=== PATIENT | female | born 1980 | race Caucasian/White ===

== ENCOUNTER 2025-04-22 16:45 | Inpatient (IN) | payer MEDICAID, SELFPAY ==
[2025-04-22 16:48] VITALS: BP 99/66; PULSE 73; RESP 18; TEMP 36.7; O2SAT 95; BMI 20.6
--- NOTE | 2025-04-22 17:00 | XR_ITS ---
Examination: AP chest single view TECHNIQUE: AP portable upright chest single view Date and time: April 22, 2025, 1743 hours, comparison February 08, 2021 INDICATIONS: Chest pain and shortness of breath today. FINDINGS: Normal heart size. Lungs are clear. The osseous structures are intact IMPRESSION: No active disease
--- NOTE | 2025-04-22 17:00 | EKG_ITS ---
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1980 Requested By: Aleksandra Gerard Order Number: [id number] Reading MD: Aleksandra Gerard Measurements Intervals Hurley Rate: 67 P: 48 NH: 147 QRS: -26 QRSD: 95 T: -8 QT: 452 QTc: 478 Interpretive Statements SINUS RHYTHM WITH OCCASIONAL SUPRAVENTRICULAR PREMATURE COMPLEXES BORDERLINE LEFT AXIS DEVIATION [QRS AXIS < -20] ST DEVIATION AND MODERATE T-WAVE ABNORMALITY, CONSIDER ANTEROLATERAL ISCHEMIA [-0.1+ mV T-WAVE IN V3-V6] Compared to ECG 06/03/2021 12:23:06 T-wave abnormality now present Possible ischemia now present Sinus bradycardia no longer present Ventricular premature complex(es) no longer present /store/S0/[id number]/ecg/[id number].pdf
--- NOTE | 2025-04-22 17:00 | PD.EDSYNC ---
ED Syncope RME/HPI General Chief Complaint: Syncope / Near Syncope Stated Complaint: SYNCOPE Time Seen by Provider: 04/22/25 16:58 Arrival date/time: 04/22/25 16:45 RME / HPI RME / HPI narrative: 44 year old female with history of polycythemia vera, hemachromatosis, Crohn's, fibromyalgia, and diabetes (on Jardiance, no use of insulin) presents to the ED BIBA from home for evaluation following a syncopal episode today. 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 Accompanied by feeling globally weak, shaky, light headed with standing, chills, nausea, and intermittent abdominal cramping. Additionally reports her blood sugar at home has been >400 and in the last several days is only eating once a day due to increased stress. Per medics, on scene BS 375. Denies fevers, chest pain, cough, shortness of breath, vomiting, diarrhea, constipation, or urinary symptoms. Patient later mentioned she did take a shot of fireball and smoked marijuana just before syncopal episode. Related Data Home Medications ?Medication ?Instructions ?Recorded ?Confirmed losartan 50 mg tablet 50 mg PO QDAY 06/02/21 10/13/22 acetaminophen 500 mg tablet 500 mg PO Q6H PRN Pain 06/03/21 10/13/22 ibuprofen 800 mg tablet 800 mg PO Q6H PRN Pain 06/03/21 10/13/22 Held on 10/13/22. Instructions: Resume on 10/16/22. atenolol 100 mg tablet 50 mg PO BID 08/05/21 10/13/22 loperamide 2 mg capsule 2 mg PO QID 10/12/22 10/13/22 quetiapine 50 mg tablet 50 mg PO HS 10/12/22 10/13/22 sertraline 50 mg tablet 50 mg PO QDAY 10/12/22 10/13/22 Previous Rx's ?Medication ?Instructions ?Recorded hydrocodone 5 mg-acetaminophen 325 1 tab PO TID PRN pain #10 tabs 01/01/23 mg tablet dicyclomine 20 mg tablet 20 mg PO TID PRN abdominal pain 12/14/23 #30 tabs metoclopramide HCl 10 mg tablet 10 mg PO .TID prn PRN nausea and 12/14/23 (Reglan) vomiting #20 tabs pantoprazole 40 mg tablet,delayed 40 mg PO QDAY #20 tabs 12/14/23 release (Protonix) Allergies Allergy/AdvReac Type Severity Reaction Status Date / Time droperidol Allergy Intermediate Hives Verified 04/22/25 17:11 latex Allergy Mild REDNESS,ITCHING Verified 04/22/25 17:11 W/CONDOM USE ONLY CITRUS Allergy Severe SORE IN Uncoded 04/22/25 17:11 MOUTH Review of Systems Review of Systems Systems Reviewed: All systems reviewed, normal except as documented Past Medical History Past Medical History NEUROLOGIC: Positive Neurological Disorders (SYNCOPE EPISODES), Cerebrovascular Accident (2020 X2), Migraine (PO MEDS) and Head Trauma (concusions) CARDIAC: Positive Heart Murmur and Hypertension (PO MEDS) RESPIRATORY: Positive Bronchitis (HX) and Pneumonia (HX) GASTROINTESTINAL: Positive Gastrointestinal Disorders (CONSISTENT DIARRHEA), Gastrointestinal Bleed (2000) and Gastroesophageal Reflux Disease REPRODUCTIVE: Positive Pelvic Inflammatory Disease (OVARIAN CYST) and Previous Pregnancies () MUSCULOSKELETAL: Positive Musculoskeletal Disorders, Degenerative Disk Disease (left hip,), Fibromyalgia, Fractures (BILATERAL HAND, BILATERAL WRIST, LEFT ELBOW, JAW) and Degenerative Joint Disease ENT: Positive Head Trauma (concusions) ENDOCRINE: Positive Diabetes Mellitus Type 2 PSYCHO/SOCIAL: Positive Depression (PO MED), Anxiety (PO MED) and Post Traumatic Stress Disorder (PO MED) OTHER HISTORY: Positive Hospitalization (pnuemonia,internal bleeding,ovarian cyst) and Chicken Pox Family History FAMILY HISTORY: Positive Family Cardiac Disorders (MOTHER AND SISTER-PALPITATIONS, mother HTN) and Family Surgery (MOTHER-HYSTERECTOMY, SISTER-APPY) Surgical History SURGICAL: Positive Hysterectomy and Tubal Ligation; Negative Abdominal Surgery Social History SMOKING STATUS: Current every day smoker SECOND HAND EXPOSURE: Yes SUBSTANCE USE: does not use ED Exam Narrative Physical exam: GENERAL APPEARANCE: alert and oriented x 4, well-developed, well-nourished, no acute distress, smells of cigarette smoke HEENT: Normocephalic, atraumatic; EOMI; mucous membranes pink, moist; oropharynx clear NECK: Supple LUNGS: CTABL; no wheezes, no rales, no rhonchi HEART: Regular rate, regular rhythm; normal S1, S2; no murmurs ABDOMEN: non distended; normal BS; soft, no tenderness, no guarding, no rebound; no masses, no organomegaly, no hernia BACK: no CVA tenderness EXTREMITIES: atraumatic; no edema NEUROLOGIC: awake; alert and oriented x4; cranial nerves II-XII grossly intact; no focal sensory or motor deficits PSYCHIATRIC: appropriate mood and affect SKIN: warm, dry, normal color; no rashes Course Course Course Narrative: 1800: Patient signed out to Dr. Kramer pending labs, cxr, and final disposition. Quality Measures none Orders Category Date Time Status Admit to Inpatient Status Routine Admission 04/22/25 23:30 Active Patient Condition Routine Admission 04/22/25 23:29 Ordered Bedside COVID-19 Antigen Test NOW Care 04/22/25 18:39 Active Bedside Influenza A&B Antigen Test NOW Care 04/22/25 18:39 Completed COVID-19 Screening Questionnaire NOW Care 04/22/25 22:51 Active Oncology Registrar NOW Care 04/22/25 17:00 Active Decision to Admit X1 Care 04/22/25 22:51 Completed EKG (ED ONLY) *Do not use* NOW Care 04/22/25 17:00 Completed Miscellaneous Nursing Order NOW Care 04/22/25 23:29 Active Notify provider NEEDED Care 04/22/25 23:29 Active Saline [Insert IV] NOW Care 04/22/25 18:39 Active Straight [In and Out Catheter] X1 Care 04/22/25 18:39 Active Referral Physical Therapy Routine Cons 04/22/25 23:29 Active Diet Cardiac Diet 04/23/25 Breakfast Active CA echo doppler complete Routine Exams 04/22/25 23:[address] head/brain wo con Stat Exams 04/22/25 18:[address] lumbar spine wo con Stat Exams 04/22/25 19:49 Completed EKG (ED Only) Stat Exams 04/22/25 17:00 Draft XR chest 1V portable Stat Exams 04/22/25 17:00 Completed Alcohol, Blood Medical Stat Lab 04/22/25 18:10 Completed B-Type Natriuretic Peptide Stat Lab 04/22/25 18:10 Completed Beta Hydroxybutyrate Stat Lab 04/22/25 18:10 Completed CBC AM DRAW Lab 04/23/25 05:10 Received CBC AM DRAW Lab 04/24/25 05:00 Ordered CBC AM DRAW Lab 04/25/25 05:00 Ordered CBC Stat Lab 04/22/25 18:10 Completed Comprehensive Metabolic Panel AM DRAW Lab 04/23/25 05:10 Received Comprehensive Metabolic Panel AM DRAW Lab 04/24/25 05:00 Ordered Comprehensive Metabolic Panel AM DRAW Lab 04/25/25 05:00 Ordered Comprehensive Metabolic Panel Stat Lab 04/22/25 18:10 Completed D-Dimer Stat Lab 04/22/25 18:10 Completed Drug Screen,Urine Stat Lab 04/22/25 19:05 Completed HCG Qualitative,Urine Stat Lab 04/22/25 19:05 Completed Lipase Stat Lab 04/22/25 18:10 Completed Lipid Panel AM DRAW Lab 04/23/25 05:10 Received Magnesium AM DRAW Lab 04/23/25 05:10 Received Magnesium AM DRAW Lab 04/24/25 05:00 Ordered Magnesium AM DRAW Lab 04/25/25 05:00 Ordered Magnesium Stat Lab 04/22/25 18:10 Completed Partial Thromboplastin Time AM DRAW Lab 04/23/25 05:10 Received Partial Thromboplastin Time Stat Lab 04/22/25 18:10 Completed Phosphorous AM DRAW Lab 04/23/25 05:10 Received Phosphorous AM DRAW Lab 04/24/25 05:00 Ordered Phosphorous AM DRAW Lab 04/25/25 05:00 Ordered Prothrombin Time with INR AM DRAW Lab 04/23/25 05:10 Received Prothrombin Time with INR Stat Lab 04/22/25 18:10 Completed Thyroid Stimulating Hormone AM DRAW Lab 04/23/25 05:10 Received Troponin I Stat Lab 04/22/25 18:10 Completed UA, C/S IF [Urinalysis, C/S if Indicated] Stat Lab 04/22/25 19:05 Completed Acetaminophen Tab [Tylenol Tab] Med 04/22/25 23:29 Active 650 mg PO Q6H PRN HYDROcodone*/APAP 5/325 [Mayer 5/325] Med 04/22/25 23:29 Active 1 tab PO Q4HR PRN KCL 10% Liq UDC 15 ML Med 04/22/25 22:42 Discontinued 40 meq GT X1 ONE KCL 10% Liq UDC 15 ML Med 04/22/25 18:55 Discontinued 40 meq PO X1 ONE Ketorolac Inj [Toradol Inj] Med 04/22/25 19:49 Discontinued 30 mg IVP X1 ONE Morphine Inj Med 04/22/25 19:49 Discontinued 4 mg IVP X1 ONE Ondansetron Inj [Zofran Inj] Med 04/22/25 23:29 Active 4 mg IVP Q6H PRN Ondansetron Inj [Zofran Inj] Med 04/22/25 19:49 Discontinued 4 mg IVP X1 ONE POTASSIUM CHL 10 mEq IVPB [Kcl Ivpb] Med 04/22/25 18:55 Discontinued 10 meq in 100 ml IV X1 Sodium Chloride 0.9% 1000 ml [Ns] 1,000 ml Med 04/22/25 17:00 Discontinued IV 999 mls/hr Code Status Routine Oth 04/22/25 23:29 Ordered Vital Signs Vital signs: Vital Signs Temperature 98.1 F 04/22/25 16:48 Pulse Rate 73 04/22/25 16:48 Respiratory Rate 18 04/22/25 16:48 Blood Pressure 99/66 04/22/25 16:48 Pulse Oximetry (%) 95 04/22/25 16:48 Oxygen Delivery Method Room Air 04/22/25 16:48 Pulse ox is 95% on room air which is adequate. Syncope MDM Narrative MDM Narrative:: Miya Lainez am scribing for and in the presence of Dr. House. Patient data External records reviewed:: [facility] previous records (I reviewed ED visit on 12/14/2023 ) and EMS form Clinical information provided by:: patient and EMS Social determinants that could affect healthcare access:: alcohol use Patient has the following chronic illnesses:: polycythemia vera, hemachromatosis, Crohn's, fibromyalgia, and diabetes (on Jardiance, no use of insulin) How is presenting disease/condition affected by chronic disease/condition?: exacerbated by Evaluation data The following diagnostics were reviewed and interpreted by me:: other (specify) (No diagnostics resulting during sign out ) Lab and/or radiology exams considered but not ordered:: None Interpretation Summary: Diagnostics ordered and pending during sign out. Medications / Prescriptions Medications or Prescriptions considered but not ordered:: None Medication administrations:: Medication Administration History Acetaminophen (Acetaminophen 325 Mg Tablet) 650 mg PO Q6H PRN PRN Reason: Fever >100.4 or pain Stop: 05/22/25 23:28 Hydrocodone Bitart/Acetaminophen (Hydrocodone/Apap 5/325 Tablet) 1 tab PO Q4HR PRN PRN Reason: PAIN SCALE 4-10(Mod-Sev Stop: 04/27/25 23:28 Last Admin: 04/23/25 01:57 Dose: 1 tab Documented By: CCT Dextrose (Dextrose 50%-Water Inj 50 Ml Syringe) 25 ml IV Q15MIN PRN PRN Reason: BG 50-70 responsive npo pt Stop: 05/22/25 23:33 Dextrose (Dextrose 50%-Water Inj 50 Ml Syringe) 50 ml IV Q15MIN PRN PRN Reason: BG <50 OR BG <70 & pt unresponsive Stop: 05/22/25 23:33 Diazepam (Diazepam Inj 5 Mg/Ml Vial 2 Ml) 5 mg IVP Q2HR PRN PRN Reason: CIWA SCORE 16-19 Stop: 04/28/25 02:07 Enoxaparin Sodium (Enoxaparin Sod Inj 40 Mg/0.4 Ml Syringe) 40 mg SC QDAY GRABIEL Stop: 05/07/25 08:59 Folic Acid (Folic Acid 1 Mg Tablet) 1 mg PO QDAY GRABIEL Stop: 05/23/25 08:59 Glucagon (Glucagon Inj 1 Mg Vial) 1 mg IM Q15MIN PRN PRN Reason: BG <70, and no IV access Insulin Human Lispro (Insulin Lispro (Admelog) 1 Unit/0.01 Ml Unit) 0 unit SC [facility]; Protocol Stop: 05/23/25 07:29 Lorazepam (Lorazepam 0.5 Mg Tablet) 2 mg PO Q4HR PRN PRN Reason: CIWA SCORE 12-15 Stop: 04/28/25 02:11 Lorazepam (Lorazepam 0.5 Mg Tablet) 1 mg PO Q4HR PRN PRN Reason: CIWA SCORE 8-11 Stop: 04/28/25 02:11 Ondansetron HCl (Ondansetron Inj 2 Mg/Ml Inj 2 Ml) 4 mg IVP Q6H PRN; Protocol PRN Reason: NAUSEA OR VOMITING Stop: 05/22/25 23:28 Thiamine HCl (Thiamine 100 Mg Tablet) 100 mg PO QDAY GRABIEL Stop: 05/23/25 08:59 Discontinued Medications Folic Acid (Folic Acid Inj 1 Mg/0.2 Ml) 1 mg IVP X1 ONE Stop: 04/23/25 02:09 Last Admin: 04/23/25 03:02 Dose: 1 mg Documented By: CCT Sodium Chloride (Ns) 1,000 mls @ 999 mls/hr IV .Q1H1M ONE Stop: 04/22/25 18:00 Last Infusion: 04/22/25 18:19 Dose: Infused Documented By: Admin: 04/22/25 17:18 Dose: 999 mls/hr Documented By: TM Potassium Chloride (Kcl Ivpb) 10 meq in 100 mls @ 100 mls/hr IV X1 ONE Stop: 04/22/25 19:54 Last Infusion: 04/22/25 21:58 Dose: Infused Documented By: Infusion: 04/22/25 19:33 Dose: 75 mls/hr Documented By: Admin: 04/22/25 19:26 Dose: 100 mls/hr Documented By: CCT Thiamine HCl 250 mg/ Sodium (Chloride) 102.5 mls @ 205 mls/hr IV X1 ONE Stop: 04/23/25 02:40 Last Admin: 04/23/25 03:02 Dose: 205 mls/hr Documented By: CCT Ketorolac Tromethamine (Ketorolac Inj 30 Mg/Ml Vial) 30 mg IVP X1 ONE Stop: 04/22/25 19:50 Last Admin: 04/22/25 21:02 Dose: 30 mg Documented By: GB Morphine Sulfate (Morphine Sulf Inj 10 Mg/Ml Vial) 4 mg IVP X1 ONE Stop: 04/22/25 19:50 Last Admin: 04/22/25 21:03 Dose: 4 mg Documented By: GB Ondansetron HCl (Ondansetron Inj 2 Mg/Ml Inj 2 Ml) 4 mg IVP X1 ONE; Protocol Stop: 04/22/25 19:50 Last Admin: 04/22/25 21:03 Dose: 4 mg Documented By: GB Potassium Chloride (Potassium Chloride 10% 20 Meq/15 Ml Udc) 40 meq PO X1 ONE Stop: 04/22/25 18:56 Last Admin: 04/22/25 19:25 Dose: 40 meq Documented By: CCT Potassium Chloride (Potassium Chloride 10% 20 Meq/15 Ml Udc) 40 meq GT X1 ONE Stop: 04/22/25 22:43 Last Admin: 04/23/25 01:54 Dose: Not Given Documented By: CCT Non-Admin Reason: wrong route Potassium Chloride (Potassium Chloride 10% 20 Meq/15 Ml Udc) 40 meq PO X1 ONE Stop: 04/23/25 01:53 Last Admin: 04/23/25 02:04 Dose: 40 meq Documented By: CCT See above Consultations Consultation(s) initiated? (list below): No Diagnosis Syncope Differential Diagnosis: syncope due to orthostatic hypotension, vasovagal syncope and dehydration Most likely diagnosis given after review of the tests above:: Syncope Admission Indicated Admission indicated?: not indicated Explain why admission is indicated or not indicated:: Patient signed out pending work-up. Admission Request Was there a request for admission?: No Disposition Plan Disposition Plan: other (specify) (Signed out to Dr. Kramer. ) Discharge Plan Plan Patient Disposition: Admit Acute Care w/in Hospital Problem List Clinical Impression: Alcohol withdrawal, Syncopal episodes, AMS (altered mental status), Lumbar spinal stenosis, Hypokalemia, Hyperglycemia, Marijuana use
[2025-04-22 17:07] VITALS: PULSE 83; O2SAT 97
[2025-04-22] MEDS: SODIUM CHLORIDE 0.9% 1000 ML 1,000 ML 999 ML IV (17:18)
--- NOTE | 2025-04-22 17:21 | PC.NURSE ---
JACKIE FROM HOME, [facility], HAD MULTIPLE SYNCOPAL EPISODES PER PT. HAS TYPE 2 DIABETES THAT SHE IS ON JARDIANCE FOR. BG 375 FOR EMS. TODAY PT DID DRINK FIREBALL AND SMOKED WEED. PT IS [facility], STATES SHE HAD A UTI A COUPLE WEEKS AGO, HOWEVER NEVER STARTED HER ABX.
--- NOTE | 2025-04-22 18:10 | PD.EDADDENDU ---
Emergency Room Addendum <Tere Melissa - Last Filed: 04/23/25 01:46> Addendum Narrative: I took over the care from previous shift physician, Dr. House, at 6 PM on 04/22/25. See previous notes for complete H & P and ED course. I reviewed all diagnostic test results. My interpretation of the EKG is: Sinus rhythm (67 bpm) with nonspecific ST-T changes. Misael Kramer MD My interpretation of the chest x-ray is NAD. My review of the CT head report is NAD. My review of the CT lumbar spine report is L5-S1 5 mm central lumbar disc bulge contiguous with the right and left S1 nerve roots. Blood tests remarkable for K 2.3, Blood Alcohol 68. UA unremarkable. UDS positive for marijuana. Diagnoses include: alcohol withdrawal. Treatment here included Potassium, Morphine, Toradol, Zofran, IV fluid. I discussed the case with our hospitalist. About the presentation and exam and diagnostics and treatments here. And need of further care in the hospital. Will accept the patient. Misael Kramer MD <Misael Kramer MD - Last Filed: 04/23/25 01:59> Addendum Narrative: I took over the care from previous shift physician, Dr. House, at 6 PM on 04/22/25. See previous notes for complete H & P and ED course. I reviewed all diagnostic test results. Diagnoses include: Alcohol withdrawal Syncopal episodes AMS Lumbar spinal stenosis Hypokalemia Hyperglycemia Marijuana use I discussed the case with our hospitalist. About the presentation and exam and diagnostics and treatments here. And need of further care in the hospital. Will accept the patient. Misael Kramer MD
[2025-04-22 18:26] LABS: Beta Hydroxybutyrate 0.5 mmol/L (<0.6)
[2025-04-22 18:28] LABS: Basophils # (Auto) 0.0 Thou/mm3 (0.0-0.2); Basophils % (Auto) 0 % (0-2.5); Eosinophils # (Auto) 0.0 Thou/mm3 (0.0-0.5); Eosinophils % (Auto) 1 % (0-10); Hematocrit 41.8 % (36.0-46.0); Hemoglobin 15.2 g/dL (12.0-16.0); Immature Granulocytes Auto 0.03 Thou/mm3 (0.00-0.00); Lymphocytes # (Auto) 1.3 Thou/mm3 (1.0-4.8); Lymphocytes % (Auto) 28 % (10-50); Mean Corpuscular HGB Conc 36.4 g/dl (31.0-37.0); Mean Corpuscular Hemoglobin 37.7 pg (25.0-35.0); Mean Corpuscular Volume 104 fL (80-100); Monocytes # (Auto) 0.3 Thou/mm3 (0.0-0.8); Monocytes % (Auto) 6 % (0-12); Neutrophils # (Auto) 3.0 Thou/mm3 (1.8-7.7); Neutrophils % (Auto) 64 % (37-80); Nucleated Red Blood Cell # 0.00 Thou/mm3 (0.00-0.00); Nucleated Red Blood Cell % 0 /100 WBC (0); Platelet Count 176 Thou/mm3 (140-440); RDW Standard Deviation 53.1 fL (36.4-46.3); Red Blood Count 4.03 Miln/mm3 (4.00-5.20); White Blood Count 4.7 Thou/mm3 (3.6-11.0)
[2025-04-22 18:30] VITALS: BP 134/91; PULSE 74; RESP 18; TEMP 37.3; O2SAT 99
--- NOTE | 2025-04-22 18:40 | XR_ITS ---
Examination: CT brain head without contrast. 2-D sagittal coronal reconstructions Date and time of exam:April 22, 20252001 hours, comparison May 02, 2018 INDICATIONS: Dizziness episodes of syncope today CTDI: vol (mGy):48 DLP: (mGycm):927 Technique: Multiple CT axial sections of the brain have been obtained, 5 mm slice thickness. Contrast has not been administered. 2-D sagittal, coronal reconstructions have been obtained Low dose protocols were performed. One or more of the following dose reduction techniques were used; automated exposure control, adjustment of the mA and/or KV according to patient size, use of iterative reconstruction technique. Findings: No significant ventricular enlargement. Intra-axial or extra-axial hemorrhage density is not seen. No mass effect or midline shift Basal cisterns are not remarkable. Fourth ventricle is midline. Cranial vault intact. Impression: Negative for acute hemorrhage, mass effect or midline shift Advise clinical correlation and follow up accordingly
[2025-04-22 18:48] LABS: INR 1.0 (0.9-1.3); Partial Thromboplastin Time 24.5 Seconds (22.0-36.0); Prothrombin Time 11.3 Seconds (9.0-12.2)
[2025-04-22 18:50] LABS: B-Type Natriuretic Peptide 20 pg/mL (0-100)
[2025-04-22 18:53] LABS: Alanine Aminotransferase 41 U/L (10-49); Albumin, Serum 4.0 gm/dL (3.5-5.0); Albumin/Globulin Ratio 2.0 (1.2-2.2); Alcohol, Blood Medical 68.0 mg/dL (0-10.0); Alkaline Phosphatase 98 U/L (46-116); Anion Gap 10 (7-16); Aspartate Amino Transferase 79 U/L (0-34); BUN/Creatinine Ratio 6 Ratio (12-20); Bilirubin,Total 0.6 mg/dL (0.3-1.2); Blood Urea Nitrogen < 5 mg/dL (9-23); Calcium 8.9 mg/dL (8.3-10.6); Calcium (Corrected) 8.9 mg/dL (8.5-10.1); Carbon Dioxide 28.2 mMol/L (20.0-31.0); Chloride 100 mMol/L (98-107); Creatinine (Component) 0.8 mg/dL (0.6-1.3); Estimated Creatinine Clearance 78.0 mL/min (>60); Globulin 2.0 gm/dL (2.3-3.5); Glucose 188 mg/dL (74-106); Lipase 26 U/L (12-53); Magnesium 1.7 mg/dL (1.6-2.6); Osmolality,Calculated 277 (275-295); Sodium 138 mMol/L (136-145); Total Protein 6.0 gm/dL (5.7-8.2); Troponin I < 0.020 ng/mL (0.0-0.045); eGFR > 60 See Note
[2025-04-22 18:55] LABS: Potassium 2.3 mMol/L (3.4-5.1)
[2025-04-22 19:14] LABS: Collection Type, Urine Clean Catch; RBC,Urine 0 /hpf (0-3)
[2025-04-22 19:20] LABS: HCG Qualitative,Urine Negative
[2025-04-22 19:20] LABS: D-Dimer < 250 ng/mL (<600)
[2025-04-22] MEDS: POTASSIUM CHLORIDE 10% 20 MEQ/15 ML UDC 40 MEQ PO (19:25)
[2025-04-22] MEDS: POTASSIUM CHL 10 mEq IVPB 10 MEQ/100 ML BAG 100 MEQ IV (19:26)
[2025-04-22 19:28] LABS: Bacteria,Urine Rare; Bilirubin,Urine Negative (Negative); Blood,Urine Negative (Negative); Clarity,Urine Clear (Clear/Hazy); Color,Urine Colorless (Lt Yel-Yel); Culture Indicated,Urine Not Indicated; Glucose, Urine 4+ (Negative); Ketones,Urine Negative (Negative); Leukocyte Esterase,Urine Negative (Negative); Nitrite,Urine Negative (Negative); PH,Urine 6.5 (5.0-7.0); Protein,Urine Negative (Neg - Trace); Specific Gravity,Urine 1.016 (1.001-1.035); Squamous Epithelial Cell,Urine 2 /hpf (0-5); Urobilinogen,Urine Negative mg/dL (0.0-1.0); WBC,Urine 2 /hpf (0-5)
[2025-04-22 19:37] LABS: Amphetamine/Methamp Scrn,U Negative (Negative); Barbiturate Screen,Urine Negative (Negative); Benzodiazepines Screen,Urine Negative (Negative); Benzoylecgonine Screen, Ur Negative (Negative); Fentanyl Screen,Urine Negative (Negative); Opiate Screen,Urine Negative (Negative); THC Screen,Urine Positive (Negative)
--- NOTE | 2025-04-22 19:49 | XR_ITS ---
Examination: CT lumbar spine, without contrast. 2-D sagittal reconstructions. 2-D coronal reconstructions. 3-D reconstructions. Date and time of exam:April 22, 20252003 hours INDICATIONS: Lower back pain several years CTDI: vol (mGy):16.7 DLP: (mGycm):552 Technique: Multiple 1.25 mm axial sections of the lumbar spine without intravenous contrast have been obtained. 2-D sagittal and coronal reconstructions have been obtained. 3-D reconstructions have been obtained. Low dose protocols were performed. One or more of the following dose reduction techniques were used; automated exposure control, adjustment of the mA and/or KV according to patient size, use of iterative reconstruction technique. Findings: Satisfactory alignment lumbar vertebral bodies No lumbar fracture. No lumbar pedicles, laminae, transverse and posterior spinous processes intact L5-S1 5 mm central lumbar disc bulge contiguous with the right and left S1 nerve roots More cephalad levels unremarkable IMPRESSION: L5-S1 5 mm central lumbar disc bulge contiguous with the right and left S1 nerve roots, recommend MRI lumbar spine without contrast follow-up
[2025-04-22] MEDS: KETOROLAC INJ 30 MG/ML VIAL IVP (21:02)
[2025-04-22] MEDS: ONDANSETRON INJ 2 MG/ML INJ 2 ML 4 MG IVP (21:03)
[2025-04-22] MEDS: MORPHINE SULF INJ 10 MG/ML VIAL 4 MG IVP (21:03)
[2025-04-22 21:53] VITALS: BP 155/104; PULSE 80; RESP 19; TEMP 37.2; O2SAT 99
--- NOTE | 2025-04-22 23:34 | ECHO_ITS ---
Transthoracic Echo Report Ht (in): 66 Wt (lb): 124 Exam Location: Echo Lab Status: Emergency Inspector Handbag Frames: Cheyanne Baptiste Indications: Procedure Performed: BP: 158 / 90 HR: 87 MEASUREMENTS (Male / Female) Normal Values 2D ECHO LV Diastolic Diameter PLAX 4.2 cm 4.2 - 5.9 / 3.9 - 5.3 cm LV Systolic Diameter PLAX 2.7 cm IVS Diastolic Thickness 1.0 cm 0.6 - 1.0 / 0.6 - 0.9 cm LVPW Diastolic Thickness 1.1 cm 0.6 - 1.0 / 0.6 - 0.9 cm LV Relative Wall Thickness 0.5 LVOT Diameter 1.9 cm LA Volume Index 37.2 cm?/m? 16 - 28 cm?/m? Ascending Aorta Diameter 2.5 cm M-MODE AV Cusp Separation MM 1.7 cm DOPPLER AV Peak Velocity 139.0 cm/s AV Peak Gradient 7.7 mmHg AV Mean Gradient 4.0 mmHg AV Velocity Time Integral 30.8 cm LVOT Peak Velocity 77.7 cm/s LVOT Peak Gradient 2.4 mmHg LVOT Velocity Time Integral 19.1 cm LVOT Cardiac Index 2919.0 cm?/min?m? AV Area Cont Eq vti 1.8 cm? AV Area Cont Eq pk 1.6 cm? MV Area PHT 5.6 cm? Mitral E Point Velocity 78.0 cm/s Mitral A Point Velocity 87.4 cm/s Mitral E to A Ratio 0.9 LV E' Lateral Velocity 8.9 cm/s Mitral E to LV E' Lateral Ratio 8.7 LV E' Septal Velocity 6.9 cm/s Mitral E to LV E' Septal Ratio 11.4 TR Peak Velocity 228.0 cm/s TR Peak Gradient 20.8 mmHg PV Peak Velocity 95.0 cm/s PV Peak Gradient 3.6 mmHg FINDINGS Left Ventricle Mild LVH. Normal left ventricular size, systolic function with no obvious regional wall motion abnormalities. The ejection fraction is visually estimated at 55-60_ %. Right Ventricle The right ventricle is normal in size and systolic function. The estimated right ventricular systolic pressure,23 mmHg. Left Atrium The left atrium is normal by two-dimensional, color flow and Doppler imaging with no structural abnormalities, no thrombus formation present. Right Atrium The right atrium is normal by two-dimensional imaging, color flow and Doppler imaging with no structural abnormalities, no thrombus formation present. Atrial Septum The interatrial septum appears normal with no evidence of a shunt. Aorta The aorta is normal by two-dimensional, color flow and Doppler interrogation. Mitral Valve The mitral valve is normal by two-dimensional, color flow and Doppler interrogation. Trace to mild mitral regurgitation. Aortic Valve The aortic valve is trileaflet and normal by two-dimensional, color flow and Doppler interrogation. There is no significant aortic valve regurgitation. Tricuspid Valve The tricuspid valve is normal by two-dimensional, color flow and Doppler interrogation. There is mild tricuspid valve regurgitation. Pulmonic Valve The pulmonic valve is not well visualized. There is no significant pulmonic valve regurgitation. Vessels The pulmonary artery appears normal. The inferior vena cava pulmonary and hepatic veins appear normal. Pericardium The pericardium is normal by two-dimensional imaging. There is no significant pericardial effusion. CONCLUSIONS Indication: Syncopal episodes Mild LVH, Normal LV size and function. EF estimated 55-60% Mild VT and Mild TR. Eran Lopez (Electronically Signed) Final Date: 24 April 2025 16:47
[2025-04-23] VITALS (18 sets, daily range): BP systolic 93–164; BP diastolic 56–110; PULSE 58–90; RESP 15–20; TEMP 36–37.6; O2SAT 95–100
[2025-04-23] MEDS: HYDROcodone/APAP 5/325 TABLET 1 TAB PO ×3 (01:57→20:09)
[2025-04-23] MEDS: POTASSIUM CHLORIDE 10% 20 MEQ/15 ML UDC 40 MEQ PO (02:04)
--- NOTE | 2025-04-23 02:45 | ESHP_ITS ---
Documentation for date of: 04/23/25 [facility] History of Present Illness Chief complaint: Syncopal episodes History of present illness: 44 y/o F with PMHx significant for alcohol abuse, fibromyalgia, diabetes, Crohn's disease, polycythemia, hypertension, hemochromatosis, palpitations presents with chief complaints of multiple syncopal episodes over the past few weeks. Patient states that episodes are typically preceded by a feeling of hot/cold rash throughout the body and bright lights. Patient is unsure but thinks each episode lasts for maybe a minute, has no postictal state. Stable episodes do not appear to have clear trigger. Patient is concerned that they may becoming more frequent hence ED visit. Patient denies fever, chills, chest pain, shortness of breath, nausea, vomiting, abdominal pain, dysuria. ED COURSE: Labs significant for: Hemoglobin 15.2, potassium 2.3 (repleted), urinalysis negative, U tox positive for THC, alcohol level 68, beta hydroxybutyrate 0.5, anion gap 10. Imaging significant for: Chest x-ray unremarkable, head CT negative, EKG unremarkable. Lumbar spine CT showing L5-S1 central lumbar disc bulge. Patient CIWA 1 L bolus normal saline, 90 mEq potassium in the ED. PMH: Alcohol abuse, fibromyalgia, potassium deficiency, palpitations, diabetes, Crohn's, polycythemia, hypertension, hemochromatosis PSH: Tubal ligation, hysterectomy SH: Denies illicit drugs. Over 41-jpyq-tfal smoking history. Half pint of fireball daily. Allergies:?Droperidol Medications: Atenolol, losartan, Jardiance, duloxetine, [place], Flexeril, quetiapine, atorvastatin Review of Systems Review of Systems Systems Reviewed: All systems reviewed, normal except as documented Past Medical History Past Medical History Comments PMH COMMENT: PMH: Alcohol abuse, fibromyalgia, potassium deficiency, palpitations, diabetes, Crohn's, polycythemia, hypertension, hemochromatosis PSH: Tubal ligation, hysterectomy SH: Denies illicit drugs. Over 21-vuak-ohzk smoking history. Half pint of fireball daily. Allergies:?Droperidol Medications: Atenolol, losartan, Jardiance, duloxetine, [place], Flexeril, quetiapine, atorvastatin Exam Vital Signs Temp Pulse Resp BP Pulse Ox O2 Del Method 98 F 78 16 119/86 H 96 Room Air 04/23/25 01:00 04/23/25 01:00 04/23/25 01:00 04/23/25 01:00 04/23/25 01:00 04/23/25 01:00 Narrative Exam PE: Gen: Well-developed and well-nourished. HEENT: NCAT, PERRLA, EOMI, MMM. Chemosis, conjunctival injection. Edematous eyelids. CVS: normal S1 and S2. RRR. No M/R/G. Resp: CTA B/L. No rhonchi, rales, crackles or wheezing. Abd: soft, non-tender, non-distended. MSK: Good ROM in BUE & BLE. No edema or rash. Neuro: CN II-XII grossly intact. Strength 5/5 in BUE & BLE. Alert and oriented x3. Psych: appropriate mood and affect. Results: Labs 04/23/25 05:10 04/23/25 05:10 Labs: Short CBC 04/22/25 Range/Units 18:10 WBC 4.7 (3.6-11.0) Thou/mm3 Hgb 15.2 (12.0-16.0) g/dL Hct 41.8 (36.0-46.0) % Plt Count 176 (140-440) Thou/mm3 BMP 04/22/25 18:10 Sodium 138 Potassium 2.3 L* Chloride 100 Carbon Dioxide 28.2 BUN < 5 L Creatinine 0.8 Glucose 188 H Calcium 8.9 Cardiac Enzymes 04/22/25 Range/Units 18:10 Troponin I < 0.020 (0.0-0.045) ng/mL Liver Function 04/22/25 Range/Units 18:10 Total Bilirubin 0.6 (0.3-1.2) mg/dL AST 79 H (0-34) U/L ALT 41 (10-49) U/L Alkaline Phosphatase 98 (46-116) U/L Albumin 4.0 (3.5-5.0) gm/dL Urine 04/22/25 Range/Units 19:05 Urine Color Colorless A (Lt Yel-Yel) Urine Clarity Clear (Clear/Hazy) Urine pH 6.5 (5.0-7.0) Ur Specific [place] 1.016 (1.001-1.035) Urine Protein Negative (Neg - Trace) Urine Glucose (UA) 4+ A (Negative) Quality Measures Quality Measures VTE prophylaxis Medications Home Medications and Allergies Home Medications ?Medication ?Instructions ?Recorded ?Confirmed ?Type losartan 50 mg tablet 50 mg PO QDAY 06/02/2110/13 History acetaminophen 500 mg tablet 500 mg PO Q6H PRN Pain 10/13/22 History ibuprofen 800 mg tablet 800 mg PO Q6H PRN Pain 06/0310/13/22 History Held on 10/13/22. Instructions: Resume on 10/16/22. atenolol 100 mg tablet 50 mg PO BID 08/05/21 History loperamide 2 mg capsule 2 mg PO QID 10/12/22 3 History quetiapine 50 mg tablet 50 mg PO HS 10/12/22 3 History sertraline 50 mg tablet 50 mg PO QDAY 10/12/2210/13 History Allergies Allergy/AdvReac Type Severity Reaction Status Date / Time droperidol Allergy Intermediate Hives Verified 04/22/25 17:11 latex Allergy Mild REDNESS,ITCHING Verified 04/22/25 17:11 W/CONDOM USE ONLY CITRUS Allergy Severe SORE IN Uncoded 04/22/25 17:11 MOUTH Visit Medications Acetaminophen (Acetaminophen 325 Mg Tablet) 650 mg PO Q6H PRN PRN Reason: Fever >100.4 or pain Stop: 05/22/25 23:28 Hydrocodone Bitart/Acetaminophen (Hydrocodone/Apap 5/325 Tablet) 1 tab PO Q4HR PRN PRN Reason: PAIN SCALE 4-10(Mod-Sev Stop: 04/27/25 23:28 Last Admin: 04/23/25 01:57 Dose: 1 tab Dextrose (Dextrose 50%-Water Inj 50 Ml Syringe) 25 ml IV Q15MIN PRN PRN Reason: BG 50-70 responsive npo pt Stop: 05/22/25 23:33 Dextrose (Dextrose 50%-Water Inj 50 Ml Syringe) 50 ml IV Q15MIN PRN PRN Reason: BG <50 OR BG <70 & pt unresponsive Stop: 05/22/25 23:33 Diazepam (Diazepam Inj 5 Mg/Ml Vial 2 Ml) 5 mg IVP Q2HR PRN PRN Reason: CIWA SCORE 16-19 Stop: 04/28/25 02:07 Enoxaparin Sodium (Enoxaparin Sod Inj 40 Mg/0.4 Ml Syringe) 40 mg SC QDAY [facility] Stop: 05/07/25 08:59 Folic Acid (Folic Acid 1 Mg Tablet) 1 mg PO QDAY [facility] Stop: 05/23/25 08:59 Glucagon (Glucagon Inj 1 Mg Vial) 1 mg IM Q15MIN PRN PRN Reason: BG <70, and no IV access Insulin Human Lispro (Insulin Lispro (Admelog) 1 Unit/0.01 Ml Unit) 0 unit SC AC [facility]; Protocol Stop: 05/23/25 07:29 Lorazepam (Lorazepam 0.5 Mg Tablet) 2 mg PO Q4HR PRN PRN Reason: CIWA SCORE 12-15 Stop: 04/28/25 02:11 Lorazepam (Lorazepam 0.5 Mg Tablet) 1 mg PO Q4HR PRN PRN Reason: CIWA SCORE 8-11 Stop: 04/28/25 02:11 Ondansetron HCl (Ondansetron Inj 2 Mg/Ml Inj 2 Ml) 4 mg IVP Q6H PRN; Protocol PRN Reason: NAUSEA OR VOMITING Stop: 05/22/25 23:28 Thiamine HCl (Thiamine 100 Mg Tablet) 100 mg PO QDAY [facility] Stop: 05/23/25 08:59 Discontinued Medications Folic Acid (Folic Acid Inj 1 Mg/0.2 Ml) 1 mg IVP X1 ONE Stop: 04/23/25 02:09 Sodium Chloride (Ns) 1,000 mls @ 999 mls/hr IV .Q1H1M ONE Stop: 04/22/25 18:00 Last Infusion: 04/22/25 18:19 Dose: Infused Potassium Chloride (Kcl Ivpb) 10 meq in 100 mls @ 100 mls/hr IV X1 ONE Stop: 04/22/25 19:54 Last Infusion: 04/22/25 21:58 Dose: Infused Thiamine HCl 250 mg/ Sodium (Chloride) 102.5 mls @ 205 mls/hr IV X1 ONE Stop: 04/23/25 02:40 Ketorolac Tromethamine (Ketorolac Inj 30 Mg/Ml Vial) 30 mg IVP X1 ONE Stop: 04/22/25 19:50 Last Admin: 04/22/25 21:02 Dose: 30 mg Morphine Sulfate (Morphine Sulf Inj 10 Mg/Ml Vial) 4 mg IVP X1 ONE Stop: 04/22/25 19:50 Last Admin: 04/22/25 21:03 Dose: 4 mg Ondansetron HCl (Ondansetron Inj 2 Mg/Ml Inj 2 Ml) 4 mg IVP X1 ONE; Protocol Stop: 04/22/25 19:50 Last Admin: 04/22/25 21:03 Dose: 4 mg Potassium Chloride (Potassium Chloride 10% 20 Meq/15 Ml Udc) 40 meq PO X1 ONE Stop: 04/22/25 18:56 Last Admin: 04/22/25 19:25 Dose: 40 meq Potassium Chloride (Potassium Chloride 10% 20 Meq/15 Ml Udc) 40 meq GT X1 ONE Stop: 04/22/25 22:43 Last Admin: 04/23/25 01:54 Dose: Not Given Potassium Chloride (Potassium Chloride 10% 20 Meq/15 Ml Udc) 40 meq PO X1 ONE Stop: 04/23/25 01:53 Last Admin: 04/23/25 02:04 Dose: 40 meq Assessment & Plan Plan 44 y/o F with PMHx significant for alcohol abuse, fibromyalgia, diabetes, Crohn's disease, polycythemia, hypertension, hemochromatosis, palpitations presents with chief complaints of multiple syncopal episodes over the past few weeks, admitted for workup of syncope. #Syncope Patient presented with chief complaint of syncope. Patient had multiple syncopal episodes over past few weeks. Episodes preceded with flashing lights and sensation of hot/cold taylor. Patient has no postictal state. Episodes not appear to be triggered by anything specific. Of note patient drinks half pint of fireball daily. U tox positive for THC. Patient hypokalemic 2.3. Labs otherwise benign. - Telemetry monitoring - Orthostatic vitals - Echo ordered, follow-up - TSH ordered, follow-up - Physical therapy referral #Alcohol abuse Patient drinks half pint of alcohol daily, has done so for over a year. Alcohol level 68 on admission. No known alcohol withdrawal. - CIWA - Counseling regarding cessation of alcohol #DM, [id number] Patient history as stated. No A1c on file. - ISS - A1c ordered, follow-up #Hypokalemia #Potassium deficiency Patient states she has history of low potassium. Potassium 2.3 on admission, 90 mill equivalents repleted. - Monitor daily potassium - Replete as needed #Fibromyalgia #Crohn's #Hypertension Patient history as stated. - Hydrocodone as needed for pain - Holding antihypertensives in setting of syncope, resume when appropriate #Polycythemia #Hemochromatosis Patient history as stated. - Monitor daily hemoglobin DVT prophylaxis: Lovenox GI prophylaxis: None Diet: Carb consistent/cardiac Lines: Peripheral IV Code status: Full code Plan of care discussed with attending Dr. Magdalena Baldwin MD PGY?2 Attending Provider Attestation/Addendum After examination of the patient and review of the clinical data I feel that this patient needs admission to the hospital for further treatment/evaluation. I Yokasta Nichols MD, attest that I was physically present for manning portions of evaluation, and examined patient, labs and imagings and plan of care were discussed with IM residents team, and I agree with the findings and plans documented above.
[2025-04-23] MEDS: THIAMINE INJ 250 MG in SODIUM CHLORIDE 0.9% 100 ML 205 MG IV (03:02)
[2025-04-23] MEDS: FOLIC ACID INJ 1 MG/0.2 ML IVP (03:02)
[2025-04-23 05:26] LABS: Basophils # (Auto) 0.0 Thou/mm3 (0.0-0.2); Basophils % (Auto) 1 % (0-2.5); Eosinophils # (Auto) 0.1 Thou/mm3 (0.0-0.5); Eosinophils % (Auto) 1 % (0-10); Hematocrit 39.8 % (36.0-46.0); Hemoglobin 13.9 g/dL (12.0-16.0); Immature Granulocytes Auto 0.02 Thou/mm3 (0.00-0.00); Lymphocytes # (Auto) 1.5 Thou/mm3 (1.0-4.8); Lymphocytes % (Auto) 32 % (10-50); Mean Corpuscular HGB Conc 34.9 g/dl (31.0-37.0); Mean Corpuscular Hemoglobin 36.5 pg (25.0-35.0); Mean Corpuscular Volume 105 fL (80-100); Monocytes # (Auto) 0.3 Thou/mm3 (0.0-0.8); Monocytes % (Auto) 6 % (0-12); Neutrophils # (Auto) 3.0 Thou/mm3 (1.8-7.7); Neutrophils % (Auto) 60 % (37-80); Nucleated Red Blood Cell # 0.00 Thou/mm3 (0.00-0.00); Nucleated Red Blood Cell % 0 /100 WBC (0); Platelet Count 158 Thou/mm3 (140-440); RDW Standard Deviation 53.5 fL (36.4-46.3); Red Blood Count 3.81 Miln/mm3 (4.00-5.20); White Blood Count 4.9 Thou/mm3 (3.6-11.0)
[2025-04-23 05:39] LABS: INR 1.1 (0.9-1.3); Partial Thromboplastin Time 25.2 Seconds (22.0-36.0); Prothrombin Time 11.7 Seconds (9.0-12.2)
[2025-04-23 05:51] LABS: Glucose Estimated Average 203 mg/dL (80-131); Hemoglobin A1C 8.7 % Hgb (4.8-6.0)
[2025-04-23 06:02] LABS: Alanine Aminotransferase 29 U/L (10-49); Albumin, Serum 3.5 gm/dL (3.5-5.0); Albumin/Globulin Ratio 1.9 (1.2-2.2); Alkaline Phosphatase 78 U/L (46-116); Anion Gap 7 (7-16); Aspartate Amino Transferase 45 U/L (0-34); BUN/Creatinine Ratio 6 Ratio (12-20); Bilirubin,Total 0.7 mg/dL (0.3-1.2); Blood Urea Nitrogen < 5 mg/dL (9-23); Calcium 8.8 mg/dL (8.3-10.6); Calcium (Corrected) 9.2 mg/dL (8.5-10.1); Carbon Dioxide 31.0 mMol/L (20.0-31.0); Cardiac Risk Estimate 3.1 RATIO (3.7-5.6); Chloride 102 mMol/L (98-107); Cholesterol 119 mg/dL (132-200); Creatinine (Component) 0.9 mg/dL (0.6-1.3); Estimated Creatinine Clearance 69.4 mL/min (>60); Globulin 1.8 gm/dL (2.3-3.5); Glucose 212 mg/dL (74-106); HDL Cholesterol 38 mg/dL (40-60); LDL Cholesterol,Calculated 50 mg/dL (0-130); Magnesium 1.2 mg/dL (1.6-2.6); Osmolality,Calculated 282 (275-295); Phosphorous 2.7 mg/dL (2.4-5.1); Potassium 3.2 mMol/L (3.4-5.1); Sodium 140 mMol/L (136-145); Thyroid Stimulating Hormone 5.60 uIU/mL (0.55-4.78); Total Protein 5.3 gm/dL (5.7-8.2); Triglycerides 156 mg/dL (30-150); eGFR > 60 See Note
--- NOTE | 2025-04-23 07:49 | PC.NURSE ---
Kaitlyn w/ Emma in pharmacy re: magnesium cubby in pyxis being locked. She assisted in the unlocking of that pyxis section. Called Dr. Kern re: pt having liquid KCL ordered vs. tablets. He said he would change to order. Verified w/ pt that she is able to swallow pills. All noted.
[2025-04-23] MEDS: Magnesium Sulfate 4 GM Ivpb 4 GM/50 ML BAG IV (07:52)
[2025-04-23] MEDS: INSULIN LISPRO (AdmeLOG) 1 UNIT/0.01 ML UNIT SC ×3 (07:53→17:03)
[2025-04-23 09:03] LABS: Iron 155 mcg/dL (50-170); Percent Iron Saturation 58 % (20-55); Total Iron Binding Capacity 267 mcg/dL (250-425); Unsaturated Iron Binding 112 (225-295)
[2025-04-23] MEDS: THIAMINE 100 MG TABLET PO (09:35)
[2025-04-23] MEDS: FOLIC ACID 1 MG TABLET PO (09:35)
[2025-04-23] MEDS: ENOXAPARIN SOD INJ 40 MG/0.4 ML SYRINGE SC (09:35)
--- NOTE | 2025-04-23 10:46 | CHAP ---
Patient was sound asleep. Prayed by bedside.
[2025-04-23 11:20] LABS: Free T4 (Free Thyroxine) 1.19 ng/dL (0.89-1.76)
[2025-04-23] MEDS: SODIUM CHLORIDE 0.9% 1000 ML 1,000 ML 75 ML IV ×3 (11:37→22:18)
[2025-04-23 13:35] LABS: Creatine Kinase 58 U/L (34-171)
--- NOTE | 2025-04-23 15:15 | ESPR_ITS ---
<Statement entered by Felipe Melissa MD - 04/24/25 06:36> Patient was examined and case was reviewed with team including attending physician. Note reviewed, I agree with most of its contents and agree with the patient's care. Felipe Melissa MD PGY-2 Documentation for date of: 04/23/25 Subjective Subjective Interval history: Patient was evaluated at the bedside this morning in the ED. She presented with a history of recurrent syncopal episodes that have progressively increased in frequency. Previously occurring a few times a month and now about three times per week. Patient describes a prodromal sensation preceding each episode, characterized by a sudden hot/cold feeling throughout her body, along with visual disturbances such as blurring and darkening of vision. Some episodes are preceded by positional changes, particularly when standing, during which she experiences dizziness. Other associated symptoms include nausea and palpitations. She reports that she remains conscious during these episodes and is able to recall events, indicating no true loss of consciousness. She has not identified any consistent triggers. Occasionally lying down/sitting down alleviates symptoms. Additionally, the patient reports a longstanding history of hypokalemia since the age of 13, for which she has received treatment in emergency departments, though she has never required hospitalization. Her primary care provider is Dr. Emmanuel at [facility]. She also sees a GI specialist in [place] and a crude oil treater, Dr. Montez, in [place]. She has not followed up with these specialists due to difficulties obtaining insurance referrals. Exam Vital Signs Temp Pulse Resp BP Pulse Ox O2 Del Method 98.4 F 58 L 16 130/56 L 98 Room Air 04/23/25 13:00 04/23/25 12:00 04/23/25 12:00 04/23/25 12:00 04/23/25 12:04/23/25 12:00 Narrative Exam Physical Exam General: Awake and in no acute distress. Conversational and non-toxic appearing. HEENT: Normocephalic, atraumatic, mucous membranes moist. Chemosis, conjunctival injection. Edematous eyelids. Heart: Regular rate and rhythm, no murmurs. Lungs: Clear to auscultation with no wheezing or crackles. Abdomen: Soft, nondistended, nontender. No guarding or rebound tenderness. Neurologic: Alert and oriented x3, no gross neurological deficit, and patient able to move all 4 extremities. Extremities: No edema. Skin: No rash or ecchymoses. Objective Labs 04/24/25 05:08 04/24/25 05:08 Labs: Laboratory Results - last 24 hr 04/22/25 04/22/25 04/23/25 18:10 19:05 05:10 WBC 4.7 4.9 RBC 4.03 3.81 L Hgb 15.2 13.9 Hct 41.8 39.8 MCV 104 H 105 H MCH 37.7 H 36.5 H MCHC 36.4 34.9 RDW Std Deviation 53.1 H 53.5 H Plt Count 176 158 Neut % (Auto) 64 60 Lymph % (Auto) 28 32 [place] % (Auto) 6 6 Eos % (Auto) 1 1 Baso % (Auto) 0 1 Neut # (Auto) 3.0 3.0 Lymph # (Auto) 1.3 1.5 [place] # (Auto) 0.3 0.3 Eos # (Auto) 0.0 0.1 Baso # (Auto) 0.0 0.0 Immature Gran # (Auto) 0.03 H 0.02 H Absolute Nucleated RBC 0.00 0.00 Immature Gran % 1 H 0 Nucleated RBC % 0 0 PT 11.3 11.7 INR 1.0 1.1 APTT 24.5 25.2 D-Dimer < 250 Sodium 138 140 Potassium 2.3 L* 3.2 L D Chloride 100 102 Carbon Dioxide 28.2 31.0 Anion Gap 10 7 BUN < 5 L < 5 L Creatinine 0.8 0.9 Estim Creat Clear Calc 78.0 69.4 eGFR > 60 > 60 BUN/Creatinine Ratio 6 L 6 L Glucose [address] Glu mg/dL 203 H Hemoglobin A1c 8.7 H Calculated Osmolality 277 282 Calcium 8.9 8.8 Corrected Calcium 8.9 9.2 Phosphorus 2.7 Magnesium 1.7 1.2 L Iron 155 TIBC 267 Iron Saturation 58 H Unsat Iron Binding 112 L Total Bilirubin 0.6 0.7 AST 79 H 45 H ALT 41 29 Alkaline Phosphatase 98 78 D Total Creatine Kinase Troponin I < 0.020 B-Natriuretic Peptide 20 Total Protein 6.0 5.3 L Albumin 4.0 3.5 D Globulin 2.0 L 1.8 L Albumin/Globulin Ratio 2.0 1.9 Triglycerides 156 H Cholesterol 119 L LDL Cholesterol, Calc 50 HDL Cholesterol 38 L Cholesterol/HDL Ratio 3.1 L Lipase 26 Beta-Hydroxybutyrate/Acetoacetate 0.5 TSH 5.60 H Free T4 1.19 Ur Collection Type Clean Catch Urine Color Colorless A Urine Clarity Clear Urine pH 6.5 Ur Specific [place] 1.016 Urine Protein Negative Urine Glucose (UA) 4+ A Urine Ketones Negative Urine Blood Negative Urine Nitrite Negative Urine Bilirubin Negative Urine Urobilinogen (Auto) Negative Ur Leukocyte Esterase Negative Urine RBC 0 Urine WBC 2 Ur Squamous Epith Cells 2 Urine Bacteria Rare Ur Culture Indicated? Not Indicated Urine HCG, Qual Negative Urine Opiates Screen Negative Urine Fentanyl Screen Negative Ur Barbiturates Screen Negative U Amphetamin/Meth Scrn Negative U Benzodiazepines Scrn Negative U Cocaine Metab Screen Negative U Marijuana (THC) Screen Positive A Ethyl Alcohol 68.0 H 04/23/25 13:04 WBC RBC Hgb Hct MCV MCH MCHC RDW Std Deviation Plt Count Neut % (Auto) Lymph % (Auto) [place] % (Auto) Eos % (Auto) Baso % (Auto) Neut # (Auto) Lymph # (Auto) [place] # (Auto) Eos # (Auto) Baso # (Auto) Immature Gran # (Auto) Absolute Nucleated RBC Immature Gran % Nucleated RBC % PT INR APTT D-Dimer Sodium Potassium Chloride Carbon Dioxide Anion Gap BUN Creatinine Estim Creat Clear Calc eGFR BUN/Creatinine Ratio Glucose Estimated Ave Glu mg/dL Hemoglobin A1c Calculated Osmolality Calcium Corrected Calcium Phosphorus Magnesium Iron TIBC Iron Saturation Unsat Iron Binding Total Bilirubin AST ALT Alkaline Phosphatase Total Creatine Kinase 58 Troponin I B-Natriuretic Peptide Total Protein Albumin Globulin Albumin/Globulin Ratio Triglycerides Cholesterol LDL Cholesterol, Calc HDL Cholesterol Cholesterol/HDL Ratio Lipase Beta-Hydroxybutyrate/Acetoacetate TSH Free T4 Ur Collection Type Urine Color Urine Clarity Urine pH Ur Specific [place] Urine Protein Urine Glucose (UA) Urine Ketones Urine Blood Urine Nitrite Urine Bilirubin Urine Urobilinogen (Auto) Ur Leukocyte Esterase Urine RBC Urine WBC Ur Squamous Epith Cells Urine Bacteria Ur Culture Indicated? Urine HCG, Qual Urine Opiates Screen Urine Fentanyl Screen Ur Barbiturates Screen U Amphetamin/Meth Scrn U Benzodiazepines Scrn U Cocaine Metab Screen U Marijuana (THC) Screen Ethyl Alcohol Quality Measures Quality Measures VTE prophylaxis Assessment & Plan Assessment Current Active Medications: Generic Name Dose Route Start Last Admin Trade Name Freq PRN Reason Stop Dose Admin Acetaminophen 650 mg 04/22/25 23:29 Acetaminophen 325 Mg Tablet PO 05/22/25 23:28 Q6H PRN Fever >100.4 or pain Hydrocodone Bitart/Acetaminophen 1 tab 04/22/25 23:29 04/23/25 01:57 Hydrocodone/Apap 5/325 Tablet PO 04/27/25 23:28 1 tab Q4HR PRN Administration PAIN SCALE 4-10(Mod-Sev Dextrose 25 ml 04/22/25 23:34 Dextrose 50%-Water Inj 50 Ml Syringe IV 05/22/25 23:33 Q15MIN PRN BG 50-70 responsive npo pt Dextrose 50 ml 04/22/25 23:34 Dextrose 50%-Water Inj 50 Ml Syringe IV 05/22/25 23:33 Q15MIN PRN BG <50 OR BG <70 & pt unresponsive Diazepam 5 mg 04/23/25 02:08 Diazepam Inj 5 Mg/Ml Vial 2 Ml IVP 04/28/25 02:07 Q2HR PRN CIWA SCORE 16-19 Enoxaparin Sodium 40 mg 04/23/25 09:00 04/23/25 09:35 Enoxaparin Sod Inj 40 Mg/0.4 Ml Syringe SC 05/07/25 08:59 40 mg QDAY GRABIEL Administration Folic Acid 1 mg 04/23/25 09:00 04/23/25 09:35 Folic Acid 1 Mg Tablet PO 05/23/25 08:59 1 mg QDAY GRABIEL Administration Glucagon 1 mg 04/22/25 23:34 Glucagon Inj 1 Mg Vial IM Q15MIN PRN BG <70, and no IV access Sodium Chloride 1,000 mls @ 75 mls/hr 04/23/25 11:45 04/23/25 12:22 Ns IV 05/23/25 11:44 75 mls/hr .[id number] GRABIEL Administration Insulin Human Lispro 0 unit 04/23/25 07:30 04/23/25 12:22 Insulin Lispro (Admelog) 1 Unit/0.01 Ml Unit SC 05/23/25 07:29 1 unit AC GRABIEL Administration Protocol Lorazepam 2 mg 04/23/25 02:12 Lorazepam 0.5 Mg Tablet PO 04/28/25 02:11 Q4HR PRN CIWA SCORE 12-15 Lorazepam 1 mg 04/23/25 02:12 Lorazepam 0.5 Mg Tablet PO 04/28/25 02:11 Q4HR PRN CIWA SCORE 8-11 Ondansetron HCl 4 mg 04/22/25 23:29 Ondansetron Inj 2 Mg/Ml Inj 2 Ml IVP 05/22/25 23:28 Q6H PRN NAUSEA OR VOMITING Protocol Thiamine HCl 100 mg 04/23/25 09:00 04/23/25 09:35 Thiamine 100 Mg Tablet PO 05/23/25 08:59 100 mg QDAY GRABIEL Administration Plan 44 year-old female with past medical history significant for alcohol use disorder, diabetes, Crohn's disease, polycythemia, hypertension, and hemochromatosis presents for recurrent syncope over the past few weeks, admitted for workup of syncope. #Recurrent syncope Likely multifactorial. Differential includes: vasovagal: consistent with prodromal symptoms of flushing and visual changes vs arrhythmogenic: potential contribution from severe hypokalemia, beta-laci use (atenolol), alcohol use, or underlying cardiomyopathy (e.g., hemochromatosis-related) vs orthostatic hypotension: possible contributor, given history of diabetes, alcohol use, and antihypertensive medications. Head CT, CXR, EKG unremarkable. K 2.3, repleted. Urine toxicology positive for THC. Plan - Admit to telemetry. - Daily BMP to track electrolyte trends. - Orthostatic vitals. - Hold atenolol for now since it may contribute to orthostatic syncope. - Start home losartan 100mg daily. - Pending echo to further assess for structural or functional cardiac abnormalities. #Severe Hypokalemia Potassium 2.3 on admission. Patient has a longstanding history of hypokalemia, previously requiring emergency department repletion but never hospitalized for it. Current episode is likely multifactorial, with contributing factors including: poor nutritional intake and/or malabsorption secondary to Crohn?s disease vs chronic alcohol use may lead to renal potassium wasting and poor intake vs Jardiance use which may cause volume depletion and renal potassium losses. Plan: - Monitor daily potassium. - Replete as needed. - Check magnesium level, as hypomagnesemia can impair potassium repletion. - Monitor for arrhythmias given initial critically low value. #Diabetes Mellitus, [id number] Hemoglobin A1c 8.7. Plan - Hold home Jaridiance. - ISS, adjust as needed. #Subclinical hypothyroidism TSH mildy elevated at 5.6. Free T4 normal at 1.19. Patient is currently asymptomatic. Plan: - No immediate treatment indicated as patient is asymptomatic and Free T4 is normal. - Recommend outpatient follow-up for anti-thyroid peroxidase (anti-TPO) antibodies to assess for autoimmune thyroiditis with history of Crohn's disease. #Alcohol abuse disorder Patient drinks half pint of alcohol daily for over a year. Alcohol level 68 on admission. No symptoms of alcohol withdrawal present currently. AST 45, ALT 29, ALP 78. Plan - CIWA protocol, currently CIWA 1. - Thiamine and folate given. - Monitor for withdrawal symptoms (tremors, diaphoresis, agitation, anxiety, hallucination, tachycardia, hypertension). - Correct hypokalemia, hypomagesemia, and hypophosphatemia as all can lower seizure threshold. - Seizure precautions. #Hemochromatosis Diagnosed about 2 years ago according to patient. At risk for restrictive cardiomyopathy and arrhythmia. Cardiac involvement is a particular concern in this patient given the history of syncopal episodes. Plan: - Pending iron panel and ferritin levels to assess current iron burden. - Pending echo. #Polycythemia Hemoglobin 13.9, hematocrit 39.8 Platelet 158. Plan: - May consider serum viscosity test as hyperviscosity symptoms include dizziness and visual changes. #Hypertension Plan: - Hold atenolol for now. Will reassess need for beta-laci as it may contribute to orthostatic snycope. - Start home losartan 100mg daily. #Crohn's Disease Currently no flare symptoms. GI specialist in [place]. Plan: - Monitor for anemia or electrolyte abnormalities if diarrhea develops. #Fibromyalgia Plan: - Hydrocodone as needed for pain #Lumbar spinal stenosis Lumbar spine CT (04/23): L5-S1 5 mm central lumbar disc bulge contiguous with the right and left S1 nerve roots Health Maintenance DVT prophylaxis: Lovenox GI prophylaxis: None Diet: Carb consistent/cardiac Lines: Peripheral IV Code status: Full code Patient plan of care was discussed with the senior resident, Dr. Olivas and attending physician, Dr. Hayes. Adeola Pat DO PGY-1 Attending Provider Attestation/Addendum Kiera Lainez DO, attest that I was physically present for the manning portions of the service and evaluated the patient with the resident and I reviewed and discussed the case with the resident and agree with the resident's findings and plans of care as documented above Patient seen and evaluated this AM. She reports near-syncopal episodes during which she sees stars , which appear to be worse with positional changes. She denies any association of her alcohol consumption with her symptoms. Patient does drink half a pint of fireball daily. Patient presented with electrolyte imbalances and has extensive medical history including hemochromatosis and medication list. Suspect symptoms may be secondary to hypokalemia versus drug interaction versus alcohol withdrawal. If symptoms persist despite repletion of fluids and electrolyes, may consider neurology evaluation. Monitoring patient under CIWA protocol due to concern for alcohol withdrawal. Holding home betablocker. Pending echo
--- NOTE | 2025-04-23 15:57 | PC.NURSE ---
CALLED LORETTA TO GIVE REPORT. SHE NEEDED TO GET HER SBAR SO I WILL CALL HER BACK AFTER GETTING PT'S 1600 VITALS.
--- NOTE | 2025-04-23 16:16 | PC.NURSE ---
REPORT CALLED TO LORETTA ON TELE. PT WILL BE GOING TO ROOM #[id number].
--- NOTE | 2025-04-23 16:35 | PC.NURSE ---
PT TRANSFERRED TO ROOM #279 VIA GURNEY ACCOMPANIED BY NURSE AND FAMILY MEMBER. CARE ENDORSED TO LORETTA RAMOS AND ARUNA BAH.
[2025-04-23] MEDS: Magnesium Sulfate 2 GM Ivpb 2 GM/50 ML BAG IV (16:55)
[2025-04-23 17:04] LABS: Ferritin 85 ng/mL (7.3-270.7)
[2025-04-23] MEDS: LOSARTAN POTASSIUM 25 MG TABLET 100 MG PO (18:30)
[2025-04-24] VITALS (11 sets, daily range): BP systolic 152–191; BP diastolic 90–127; PULSE 71–99; RESP 10–21; TEMP 35.9–36.2; O2SAT 96–100; BMI 21.3; BMI 13.0
[2025-04-24 06:00] LABS: Basophils # (Auto) 0.0 Thou/mm3 (0.0-0.2); Basophils % (Auto) 1 % (0-2.5); Eosinophils # (Auto) 0.1 Thou/mm3 (0.0-0.5); Eosinophils % (Auto) 1 % (0-10); Hematocrit 42.1 % (36.0-46.0); Hemoglobin 14.4 g/dL (12.0-16.0); Immature Granulocytes Auto 0.05 Thou/mm3 (0.00-0.00); Lymphocytes # (Auto) 1.3 Thou/mm3 (1.0-4.8); Lymphocytes % (Auto) 31 % (10-50); Mean Corpuscular HGB Conc 34.2 g/dl (31.0-37.0); Mean Corpuscular Hemoglobin 36.3 pg (25.0-35.0); Mean Corpuscular Volume 106 fL (80-100); Monocytes # (Auto) 0.2 Thou/mm3 (0.0-0.8); Monocytes % (Auto) 5 % (0-12); Neutrophils # (Auto) 2.5 Thou/mm3 (1.8-7.7); Neutrophils % (Auto) 60 % (37-80); Nucleated Red Blood Cell # 0.02 Thou/mm3 (0.00-0.00); Nucleated Red Blood Cell % 1 /100 WBC (0); Platelet Count 167 Thou/mm3 (140-440); RDW Standard Deviation 54.4 fL (36.4-46.3); Red Blood Count 3.97 Miln/mm3 (4.00-5.20); White Blood Count 4.1 Thou/mm3 (3.6-11.0)
[2025-04-24 06:42] LABS: Alanine Aminotransferase 31 U/L (10-49); Albumin, Serum 3.6 gm/dL (3.5-5.0); Albumin/Globulin Ratio 1.8 (1.2-2.2); Alkaline Phosphatase 81 U/L (46-116); Anion Gap 10 (7-16); Aspartate Amino Transferase 71 U/L (0-34); BUN/Creatinine Ratio 8 Ratio (12-20); Bilirubin,Total 0.8 mg/dL (0.3-1.2); Blood Urea Nitrogen < 5 mg/dL (9-23); Calcium 8.5 mg/dL (8.3-10.6); Calcium (Corrected) 8.8 mg/dL (8.5-10.1); Carbon Dioxide 26.4 mMol/L (20.0-31.0); Chloride 102 mMol/L (98-107); Creatinine (Component) 0.6 mg/dL (0.6-1.3); Estimated Creatinine Clearance 109.7 mL/min (>60); Globulin 2.0 gm/dL (2.3-3.5); Glucose 141 mg/dL (74-106); Magnesium 2.1 mg/dL (1.6-2.6); Osmolality,Calculated 274 (275-295); Phosphorous 2.6 mg/dL (2.4-5.1); Potassium 3.6 mMol/L (3.4-5.1); Sodium 138 mMol/L (136-145); Total Protein 5.6 gm/dL (5.7-8.2); eGFR > 60 See Note
[2025-04-24] MEDS: FOLIC ACID 1 MG TABLET PO (09:31)
[2025-04-24] MEDS: LOSARTAN POTASSIUM 25 MG TABLET 100 MG PO (09:31)
[2025-04-24] MEDS: ENOXAPARIN SOD INJ 40 MG/0.4 ML SYRINGE SC (09:32)
[2025-04-24] MEDS: HYDROcodone/APAP 5/325 TABLET 1 TAB PO ×2 (09:32→20:42)
[2025-04-24] MEDS: THIAMINE 100 MG TABLET PO (09:32)
[2025-04-24] MEDS: INSULIN LISPRO (AdmeLOG) 1 UNIT/0.01 ML UNIT SC ×3 (09:56→16:51)
--- NOTE | 2025-04-24 09:57 | PC.SS ---
SS follow up note; Patient had an echo today, possible discharge home tomorrow.
--- NOTE | 2025-04-24 09:57 | PC.SS ---
Patient Charlee bird is a 44 Year old female admitted for Syncopal Episodes. SS met with patient to discuss discharge plan and verify demographic information. Patient reports she lives a home with her uncle. Patient reports her friend, Felecia Peralta is her surrogate decision maker [phone]. Patient is able to complete all ADL's independently and does not utilize any source of DME to assist with ambulation. Pharmacy of choice is [email or web address]. PCP is Myron Emmanuel. At time of discharge friend will provide transportation home. Next of kin: Friend, Felecia Peralta. Discharge plan: Home
[2025-04-24] MEDS: SODIUM CHLORIDE 0.9% 1000 ML 1,000 ML 75 ML IV (11:34)
[2025-04-24] MEDS: MECLIZINE HCL 25 MG TABLET PO (12:05)
[2025-04-24] MEDS: hydrALAZINE INJ 20 MG/ML VIAL 10 MG IVP (16:29)
--- NOTE | 2025-04-24 17:46 | ESPR_ITS ---
<Statement entered by Cora Phillips MD - 04/24/25 22:05> I discussed with and supervised the internal revenue agent physician who took care of this patient. I personally saw and examined the patient and discussed the assessment and plan with the entire medicine team, including my attending Dr. Hayes, I agree with most of the assessment and plan as documented below Cora Phillips M.D. PGY-3 Documentation for date of: 04/24/25 Subjective Subjective Interval history: Patient was seen at the bedside this morning. She reports ongoing weakness, dizziness, and nausea without vomiting. She also describes intermittent episodes of ?seeing stars? and notes that the dizziness persists even when lying down. Additionally, the patient endorses a headache, neck and lower back pain, for which she takes cyclobenzaprine and Percocet at home. She reports using quetiapine primarily for sleep, though she is currently attempting to taper off of it. She denies any numbness or tingling in the extremities. EEG was ordered and neurology was consulted. Added meclizine 25 mg x1. Held home cyclobenzaprine as nursing staff reported the patient appeared overly sedated. Amlodipine 5 mg was initiated this morning for better blood pressure control. However, there was no significant improvement in blood pressure, so the dose was increased to 10 mg. Hydralazine was administered for a BP reading of 191/115. In the afternoon, the patient reported significant pain and requested Percocet. Will trial home cyclobenzaprine first and reassess pain level. Exam Vital Signs Temp Pulse Resp BP Pulse Ox O2 Del Method 96.9 F 88 20 191/115 H 96 Room Air 04/24/25 12:00 04/24/25 16:29 04/24/25 12:00 04/24/25 16:29 04/24/25 12:00 04/24/25 12:00 Narrative Exam Physical Exam General: Awake and in no acute distress. Conversational and non-toxic appearing. HEENT: Normocephalic, atraumatic, mucous membranes moist. Nystagmus present. Heart: Regular rate and rhythm, no murmurs. Lungs: Clear to auscultation with no wheezing or crackles. Abdomen: Soft, nondistended, nontender. No guarding or rebound tenderness. Neurologic: Alert and oriented x3, no gross neurological deficit, and patient able to move all 4 extremities. Extremities: No edema. Skin: No rash or ecchymoses. Objective Labs 04/25/25 04:40 04/25/25 04:40 Labs: Laboratory Results - last 24 hr 04/24/25 05:08 WBC 4.1 RBC 3.97 L Hgb 14.4 Hct 42.1 MCV 106 H MCH 36.3 H MCHC 34.2 RDW Std Deviation 54.4 H Plt Count 167 Neut % (Auto) 60 Lymph % (Auto) 31 Edgar % (Auto) 5 Eos % (Auto) 1 Baso % (Auto) 1 Neut # (Auto) 2.5 Lymph # (Auto) 1.3 Edgar # (Auto) 0.2 Eos # (Auto) 0.1 Baso # (Auto) 0.0 Immature Gran # (Auto) 0.05 H Absolute Nucleated RBC 0.02 H Immature Gran % 1 H Nucleated RBC % 1 H Sodium 138 Potassium 3.6 Chloride 102 Carbon Dioxide 26.4 Anion Gap 10 BUN < 5 L Creatinine 0.6 Estim Creat Clear Calc 109.7 eGFR > 60 BUN/Creatinine Ratio 8 L Glucose 141 H D Calculated Osmolality 274 L Calcium 8.5 Corrected Calcium 8.8 Phosphorus 2.6 Magnesium 2.1 Total Bilirubin 0.8 AST 71 H ALT 31 Alkaline Phosphatase 81 Total Protein 5.6 L Albumin 3.6 Globulin 2.0 L Albumin/Globulin Ratio 1.8 Quality Measures Quality Measures VTE prophylaxis Assessment & Plan Assessment Current Active Medications: Generic Name Dose Route Start Last Admin Trade Name Freq PRN Reason Stop Dose Admin Acetaminophen 650 mg 04/24/25 11:08 Acetaminophen 325 Mg Tablet PO 05/22/25 23:28 Q6H PRN Fever >100.4 or pain 1-3 Protocol Hydrocodone Bitart/Acetaminophen 1 tab 04/22/25 23:29 04/24/25 09:32 Hydrocodone/Apap 5/325 Tablet PO 04/27/25 23:28 1 tab Q4HR PRN Administration PAIN SCALE 4-10(Mod-Sev Amlodipine Besylate 10 mg 04/25/25 09:00 Amlodipine Besylate 5 Mg Tablet PO 05/25/25 08:59 QDAY GRABIEL Cyclobenzaprine HCl 10 mg 04/24/25 16:15 04/24/25 16:09 Cyclobenzaprine 5 Mg Tablet PO 05/24/25 16:14 10 mg DAILY GRABIEL Administration Dextrose 25 ml 04/22/25 23:34 Dextrose 50%-Water Inj 50 Ml Syringe IV 05/22/25 23:33 Q15MIN PRN BG 50-70 responsive npo pt Dextrose 50 ml 04/22/25 23:34 Dextrose 50%-Water Inj 50 Ml Syringe IV 05/22/25 23:33 Q15MIN PRN BG <50 OR BG <70 & pt unresponsive Diazepam 5 mg 04/23/25 02:08 Diazepam Inj 5 Mg/Ml Vial 2 Ml IVP 04/28/25 02:07 Q2HR PRN CIWA SCORE 16-19 Enoxaparin Sodium 40 mg 04/23/25 09:00 04/24/25 09:32 Enoxaparin Sod Inj 40 Mg/0.4 Ml Syringe SC 05/07/25 08:59 40 mg QDAY GRABIEL Administration Folic Acid 1 mg 04/23/25 09:00 04/24/25 09:31 Folic Acid 1 Mg Tablet PO 05/23/25 08:59 1 mg QDAY GRABIEL Administration Glucagon 1 mg 04/22/25 23:34 Glucagon Inj 1 Mg Vial IM Q15MIN PRN BG <70, and no IV access Hydralazine HCl 10 mg 04/24/25 16:12 04/24/25 16:29 Hydralazine Inj 20 Mg/Ml Vial IVP 05/24/25 16:14 10 mg Q6H PRN Administration SBP > 180, hold if SBP < 140 Sodium Chloride 1,000 mls @ 75 mls/hr 04/23/25 11:45 04/24/25 11:34 Ns IV 05/23/25 11:44 75 mls/hr .[id number] GRABIEL Administration Insulin Human Lispro 0 unit 04/23/25 07:30 04/24/25 16:51 Insulin Lispro (Admelog) 1 Unit/0.01 Ml Unit SC 05/23/25 07:29 1 unit AC GRABIEL Administration Protocol Lidocaine 1 patch 04/24/25 11:54 Lidocaine 5% 1 Patch TOP 05/24/25 11:53 X1 PRN LOCALIZED PAIN Lorazepam 2 mg 04/23/25 02:12 Lorazepam 0.5 Mg Tablet PO 04/28/25 02:11 Q4HR PRN CIWA SCORE 12-15 Lorazepam 1 mg 04/23/25 02:12 Lorazepam 0.5 Mg Tablet PO 04/28/25 02:11 Q4HR PRN CIWA SCORE 8-11 Losartan Potassium 100 mg 04/23/25 17:45 04/24/25 09:31 Losartan Potassium 25 Mg Tablet PO 05/23/25 17:44 100 mg QDAY GRABIEL Administration Ondansetron HCl 4 mg 04/22/25 23:29 Ondansetron Inj 2 Mg/Ml Inj 2 Ml IVP 05/22/25 23:28 Q6H PRN NAUSEA OR VOMITING Protocol Quetiapine Fumarate 100 mg 04/24/25 10:15 Quetiapine Fumarate 100 Mg Tablet PO 05/24/25 10:14 DAILY GRABIEL Thiamine HCl 100 mg 04/23/25 09:00 04/24/25 09:32 Thiamine 100 Mg Tablet PO 05/23/25 08:59 100 mg QDAY GRABIEL Administration Plan 44 year-old female with past medical history significant for alcohol use disorder, diabetes, Crohn's disease, polycythemia, hypertension, and hemochromatosis presents for recurrent syncope over the past few weeks, admitted for workup of syncope. #Recurrent syncope Likely multifactorial. Differential includes: vasovagal: consistent with prodromal symptoms of flushing and visual changes vs arrhythmogenic: potential contribution from severe hypokalemia, beta-laci use (atenolol), alcohol use, or underlying cardiomyopathy (e.g., hemochromatosis-related) vs orthostatic hypotension: possible contributor, given history of diabetes, alcohol use, and antihypertensive medications. Head CT, CXR, EKG unremarkable. K 2.3, repleted. Urine toxicology positive for THC. Orthostatic vitals negative. Plan - Admit to telemetry. - Daily BMP to track electrolyte trends. - Pending echo to further assess for structural or functional cardiac abnormalities. - EEG pending. - Neurology consulted - appreciate recs. #Hypertensive urgency Highest BP was 191/115. IV hydralazine 10mg given. BP improved to 164/110. Plan: - Hold atenolol for now. May be contributing to dizziness/syncope. - Continue home losartan 100mg daily. - Continue Amlodipine 10 mg daily. - IV hydralazine 10 mg Q6H PRN SBP > 180, hold if SBP < 140. #Severe Hypokalemia (resolved) Potassium 2.3 on admission. Patient has a longstanding history of hypokalemia, previously requiring emergency department repletion but never hospitalized for it. Current episode is likely multifactorial, with contributing factors including: poor nutritional intake and/or malabsorption secondary to Crohn?s disease vs chronic alcohol use may lead to renal potassium wasting and poor intake vs Jardiance use which may cause volume depletion and renal potassium losses. Plan: - Monitor daily potassium. - Replete as needed. - Check magnesium level, as hypomagnesemia can impair potassium repletion. - Monitor for arrhythmias given initial critically low value. #Diabetes Mellitus, [id number] Hemoglobin A1c 8.7. Plan - Hold home Jaridiance. - ISS, adjust as needed. #Subclinical hypothyroidism TSH mildy elevated at 5.6. Free T4 normal at 1.19. Patient is currently asymptomatic. Plan: - No immediate treatment indicated as patient is asymptomatic and Free T4 is normal. - Recommend outpatient follow-up for anti-thyroid peroxidase (anti-TPO) antibodies to assess for autoimmune thyroiditis with history of Crohn's disease. #Alcohol abuse disorder Patient drinks half pint of alcohol daily for over a year. Alcohol level 68 on admission. No symptoms of alcohol withdrawal present currently. AST 45, ALT 29, ALP 78. Plan - CIWA protocol, currently CIWA 4. - Thiamine and folate given. - Monitor for withdrawal symptoms (tremors, diaphoresis, agitation, anxiety, hallucination, tachycardia, hypertension). - Correct hypokalemia, hypomagesemia, and hypophosphatemia as all can lower seizure threshold. - Seizure precautions. #Hemochromatosis Diagnosed about 2 years ago according to patient. At risk for restrictive cardiomyopathy and arrhythmia. Cardiac involvement is a particular concern in this patient given the history of syncopal episodes. Ferritin 85, Iron 155, TIBC 267, Iron sat 58. Plan: - Ferritin within normal range. Absence of increase ferritin suggests that significant iron overload and organ damage unlikely at this time. - Pending echo. #Polycythemia Hemoglobin 13.9, hematocrit 39.8 Platelet 158. Plan: - May consider serum viscosity test as hyperviscosity symptoms include dizziness and visual changes. #Crohn's Disease Currently no flare symptoms. GI specialist in [place]. Plan: - Monitor for anemia or electrolyte abnormalities if diarrhea develops. #Fibromyalgia Plan: - Hydrocodone as needed for pain. #Lumbar spinal stenosis Lumbar spine CT (04/23): L5-S1 5 mm central lumbar disc bulge contiguous with the right and left S1 nerve roots. Plan: - Lidocaine patch PRN pain. Health Maintenance DVT prophylaxis: Lovenox GI prophylaxis: None Diet: Carb consistent/cardiac Lines: Peripheral IV Code status: Full code Patient plan of care was discussed with the senior resident, Dr. Phillips and attending physician, Dr. Hayes. Adeola Pat DO PGY-1 Attending Provider Attestation/Addendum Kiera Lainez DO, attest that I was physically present for the manning portions of the service and evaluated the patient with the resident and I reviewed and discussed the case with the resident and agree with the resident's findings and plans of care as documented above Patient seen and evaluated this AM. She reports having dizziness even at rest. She states that her head seems to swoosh from one side to the other upon movement. On exam, she is noted to have horizontal nystagmus elicited while testing extraocular muscles and causing her dizziness as well. Suspect BPPV. However, patient's story seems odd and the near syncopal/syncopal episodes, seizures cannot be ruled out. Will have neurology evaluate patient. Upon furhter questioning regarding patient's past medical history, patient states that she was diagnosed with polycythemia, hemochromatosis and crohns disease here in the hospital. However, regarding follow up, patient states that the referrals never went through. Patient's iron panel does not particularly stand out to be consistent with hemochromatosis. Iron saturation is slightly high at 58%. Ferritin is WNL. Morevover, pathology reports from previous colonoscopy did not reveal any evidence of crohns or microscopic colitis. There was an abdominal ct in the past that stated that the differential could include crohn's disease, which i believe is what the patient is referring to. At this time, patient is complaining of her chronic lower back pain and spasms. She takes seroquel at night for sleep as prescribed by her PCP, flexeril for her back pain and norco. Presenting symptoms could be secondary to polypharmacy. Will hold off on seroquel and opioids at this time. BP appears to be elevated, likely due to pain. Will place lidocaine patch, if ineffective, will try flexeril. Will uptriate BP meds as well.
--- NOTE | 2025-04-24 18:08 | RESP.EEG ---
EEG complete and ready to read
[2025-04-24] MEDS: ONDANSETRON INJ 2 MG/ML INJ 2 ML 4 MG IVP (20:42)
--- NOTE | 2025-04-24 21:00 | PD.RESCONSUL ---
HPI Data of Consult Requesting Physician: Yokasta Nichols MD Admitting Provider: Yokasta Nichols MD Attending Provider: Yokasta Nichols MD Primary Care Provider: Myron Emmanuel MD Consult Narrative History of present illness: Pipe is a 44 year old female with a past medical history of hypertension, diabetes mellitus type 2 non insulin depdent, Fibromyalgia, history of Hemochromatosis, Crohn's Disease, Alcohol Use Disorder, tachycardia on atenolol who presented via EMS with chief complain of syncope. Per pipe history patient stated syncope usually comes on with feeling of hot flash. Patient denied syncope being positional. Continues to use alcohol. Paitient continues to complain of dizziness. Patient stated dizziness is not positional and occurs while standing or laying supine. Patient denied triggered, but does have history of alcohol use disorder. ED COURSE: Labs significant for: Hemoglobin 15.2, potassium 2.3 (repleted), urinalysis negative, U tox positive for THC, alcohol level 68, beta hydroxybutyrate 0.5, anion gap 10. Imaging significant for: Chest x-ray unremarkable, head CT negative, EKG unremarkable. Lumbar spine CT showing L5-S1 central lumbar disc bulge. Patient CIWA 1 L bolus normal saline, 90 mEq potassium in the ED. PMH: Alcohol abuse, fibromyalgia, potassium deficiency, palpitations, diabetes, Crohn's, polycythemia, hypertension, hemochromatosis PSH: Tubal ligation, hysterectomy SH: Denies illicit drugs. Over [id number] smoking history. Half pint of fireball daily. Allergies: Droperidol Medications: Atenolol, losartan, Jardiance, duloxetine, [place], Flexeril, quetiapine, atorvastatin Neuro consulted given continued complain of dizziness. cc:: cc: Yokasta Nichols MD Review of Systems Review of Systems Narrative Review of Systems: General appearance: NO weight change, NO fatigue, NO weakness, NO fever, NO chills, NO night sweats, No cough Skin: NO rash, NO itching, NO sores, NO moles HEENT: NO Trauma, NO nausea, NO vomiting, NO visual changes, NO blurry vision, NO double vision, NO tinnitus, NO vertigo, NO ear discharge, NO rhinorrhea, NO stuffiness, NO sneezing, NO allergy, NO epistaxis. NO Hoarseness, NO sore throat, NO swollen neck. Cardiac: NO Palpitations, NO dyspnea on exertion, NO orthopnea, NO paroxysmal nocturnal dyspnea, NO edema Respiratory: NO Shortness of Breath, NO Wheezing, NO Cough, NO Sputum, NO hemoptysis GI:NO appetite, NO nausea, NO vomiting, NO dysphagia, NO changes in bowel frequency, NO stool color, NO diarrhea, NO constipation, NO hemetemesis, NO hemorrhoids, NO melena, NO hematechezia, NO abdominal pain, NO jaundice Renal: NO frequency, NO hesitancy, NO urgency, NO hematuria, NO nocturia, NO incontinence MSK: NO muscle weakness, NO gout, NO arthritis, NO muscle stiffness Neuro: NO headaches, NO tremors, NO weakness, NO paralysis, NO seizures, Yes loss of consciousness, Yes dizziness, NO numbness. Hem: NO anemia, NO easy bruising/bleeding, NO petechiae, NO purpura Endo: NO heat/cold intolerance, NO excessive sweating, NO polyuria, NO polydipsia, NO polyphagia, NO thyroid problems, YEs diabetes Pysch: NO mood, NO anxiety, NO depression Exam Vital Signs Temp Pulse Resp BP Pulse Ox O2 Del Method 96.9 F 80 10 L 164/98 H 100 Room Air 04/24/25 20:00 04/24/25 20:00 04/24/25 20:00 04/24/25 20:00 04/24/25 20:04/24/25 20:00 Narrative Exam General Appearance: Alert & Oriented X3, well-nourished [sex] who is lying in bed in [no acute distress] HEENT: Skull symmetrical and atraumatic. Conjunctivae pin and moist. Pupils equal, round, reactive to light and accommodation (PERRL). External ear without lesion or discharge. Straight, nares patient, mucosa pink, no discharge. No thyroid nodule appreciated. No cervical lymphadenopathy. Cardio: Normal Rate and Rhythm with S1 and S2 heart sounds. No murmurs or extra heart sounds auscultated. No bruits on carotid auscultation. No peripheral edema or cyanosis. Lungs: Symmetric with good expansion. Chest and back non-tender. Breath sounds vesicular without crackles, wheezing or rhonchi Abdomen: Non-tender, Non-distended, Normal Reactive Bowel Sounds Neuro: Alert, cooperative, oriented to person, place, and time. Speech clear. CN grossly intact. Upper motor strength 5/5 and Lower motor strength 5/5. Sensation intact. Results Labs 04/25/25 04:40 04/25/25 14:56 Labs: Short CBC 04/24/25 Range/Units 05:08 WBC 4.1 (3.6-11.0) Thou/mm3 Hgb 14.4 (12.0-16.0) g/dL Hct 42.1 (36.0-46.0) % Plt Count 167 (140-440) Thou/mm3 BMP 04/24/25 05:08 Sodium 138 Potassium 3.6 Chloride 102 Carbon Dioxide 26.4 BUN < 5 L Creatinine 0.6 Glucose 141 H D Calcium 8.5 Liver Function 04/24/25 Range/Units 05:08 Total Bilirubin 0.8 (0.3-1.2) mg/dL AST 71 H (0-34) U/L ALT 31 (10-49) U/L Alkaline Phosphatase 81 (46-116) U/L Albumin 3.6 (3.5-5.0) gm/dL Quality Measures Quality Measures VTE prophylaxis Medications Home Medications and Allergies Home Medications ?Medication ?Instructions ?Recorded ?Confirmed ?Type losartan 50 mg tablet 50 mg PO QDAY 06/02/21 04/23/25 History acetaminophen 500 mg tablet 500 mg PO Q6H PRN Pain 06/03/21 04/23/25 History ibuprofen 800 mg tablet 800 mg PO Q6H PRN Pain 06/03/21 04/23/25 History Held on 10/13/22. Instructions: Resume on 10/16/22. atenolol 100 mg tablet 50 mg PO BID 08/05/21 04/23/25 History loperamide 2 mg capsule 2 mg PO QID 10/12/22 04/23/25 History quetiapine 50 mg tablet 50 mg PO HS 10/12/22 04/23/25 History sertraline 50 mg tablet 50 mg PO QDAY 10/12/22 04/23/25 History atenolol 50 mg tablet 50 mg PO DAILY 04/23/25 04/23/25 History atorvastatin 10 mg tablet 10 mg PO HS 04/23/25 04/23/25 History cyclobenzaprine 10 mg tablet 10 mg PO DAILY 04/23/25 04/23/25 History empagliflozin 25 mg tablet 25 mg PO DAILY 04/23/25 04/23/25 History (Jardiance) losartan 100 mg tablet 100 mg PO DAILY 04/23/25 04/23/25 History oxycodone-acetaminophen 5 mg-325 1 tab PO Q6H PRN pain 04/23/25 04/23/25 History mg tablet quetiapine 100 mg tablet 100 mg PO DAILY 04/23/25 04/23/25 History Allergies Allergy/AdvReac Type Severity Reaction Status Date / Time Alger And Derivatives Allergy Severe Sores in Unverified 04/24/25 17:27 mouth droperidol Allergy Intermediate Hives Verified 04/24/25 17:27 latex Allergy Mild REDNESS,ITCHING Verified 04/24/25 17:27 W/CONDOM USE ONLY Visit Medications Acetaminophen (Acetaminophen 325 Mg Tablet) 650 mg PO Q6H PRN; Protocol PRN Reason: Fever >100.4 or pain 1-3 Stop: 05/22/25 23:28 Hydrocodone Bitart/Acetaminophen (Hydrocodone/Apap 5/325 Tablet) 1 tab PO Q4HR PRN PRN Reason: PAIN SCALE 4-10(Mod-Sev Stop: 04/27/25 23:28 Last Admin: 04/24/25 20:42 Dose: 1 tab Amlodipine Besylate (Amlodipine Besylate 5 Mg Tablet) 10 mg PO QDAY [facility] Stop: 05/25/25 08:59 Cyclobenzaprine HCl (Cyclobenzaprine 5 Mg Tablet) 10 mg PO DAILY [facility] Stop: 05/24/25 16:14 Last Admin: 04/24/25 16:09 Dose: 10 mg Dextrose (Dextrose 50%-Water Inj 50 Ml Syringe) 25 ml IV Q15MIN PRN PRN Reason: BG 50-70 responsive npo pt Stop: 05/22/25 23:33 Dextrose (Dextrose 50%-Water Inj 50 Ml Syringe) 50 ml IV Q15MIN PRN PRN Reason: BG <50 OR BG <70 & pt unresponsive Stop: 05/22/25 23:33 Diazepam (Diazepam Inj 5 Mg/Ml Vial 2 Ml) 5 mg IVP Q2HR PRN PRN Reason: CIWA SCORE 16-19 Stop: 04/28/25 02:07 Enoxaparin Sodium (Enoxaparin Sod Inj 40 Mg/0.4 Ml Syringe) 40 mg SC QDAY [facility] Stop: 05/07/25 08:59 Last Admin: 04/24/25 09:32 Dose: 40 mg Folic Acid (Folic Acid 1 Mg Tablet) 1 mg PO QDAY [facility] Stop: 05/23/25 08:59 Last Admin: 04/24/25 09:31 Dose: 1 mg Glucagon (Glucagon Inj 1 Mg Vial) 1 mg IM Q15MIN PRN PRN Reason: BG <70, and no IV access Hydralazine HCl (Hydralazine Inj 20 Mg/Ml Vial) 10 mg IVP Q6H PRN PRN Reason: SBP > 180, hold if SBP < 140 Stop: 05/24/25 16:14 Last Admin: 04/24/25 16:29 Dose: 10 mg Sodium Chloride (Ns) 1,000 mls @ 75 mls/hr IV .[id number] [facility] Stop: 05/23/25 11:44 Last Admin: 04/24/25 11:34 Dose: 75 mls/hr Insulin Human Lispro (Insulin Lispro (Admelog) 1 Unit/0.01 Ml Unit) 0 unit SC AC [facility]; Protocol Stop: 05/23/25 07:29 Last Admin: 04/24/25 16:51 Dose: 1 unit Lidocaine (Lidocaine 5% 1 Patch) 1 patch TOP X1 PRN PRN Reason: LOCALIZED PAIN Stop: 05/24/25 11:53 Lorazepam (Lorazepam 0.5 Mg Tablet) 2 mg PO Q4HR PRN PRN Reason: CIWA SCORE 12-15 Stop: 04/28/25 02:11 Lorazepam (Lorazepam 0.5 Mg Tablet) 1 mg PO Q4HR PRN PRN Reason: CIWA SCORE 8-11 Stop: 04/28/25 02:11 Losartan Potassium (Losartan Potassium 25 Mg Tablet) 100 mg PO QDAY [facility] Stop: 05/23/25 17:44 Last Admin: 04/24/25 09:31 Dose: 100 mg Ondansetron HCl (Ondansetron Inj 2 Mg/Ml Inj 2 Ml) 4 mg IVP Q6H PRN; Protocol PRN Reason: NAUSEA OR VOMITING Stop: 05/22/25 23:28 Last Admin: 04/24/25 20:42 Dose: 4 mg Quetiapine Fumarate (Quetiapine Fumarate 100 Mg Tablet) 100 mg PO DAILY [facility] Stop: 05/24/25 10:14 Last Admin: 04/24/25 19:10 Dose: Not Given Thiamine HCl (Thiamine 100 Mg Tablet) 100 mg PO QDAY [facility] Stop: 05/23/25 08:59 Last Admin: 04/24/25 09:32 Dose: 100 mg Discontinued Medications Acetaminophen (Acetaminophen 325 Mg Tablet) 650 mg PO Q6H PRN; Protocol PRN Reason: Fever >100.4 or pain Stop: 05/22/25 23:28 Amlodipine Besylate (Amlodipine Besylate 5 Mg Tablet) 5 mg PO QDAY [facility] Stop: 05/24/25 10:14 Last Admin: 04/24/25 11:33 Dose: 5 mg Cyclobenzaprine HCl (Cyclobenzaprine 5 Mg Tablet) 10 mg PO DAILY [facility] Stop: 05/24/25 10:14 Folic Acid (Folic Acid Inj 1 Mg/0.2 Ml) 1 mg IVP X1 ONE Stop: 04/23/25 02:09 Last Admin: 04/23/25 03:02 Dose: 1 mg Hydralazine HCl (Hydralazine Hcl 10 Mg Tablet) 10 mg PO Q6HR PRN PRN Reason: Systolic BP > 180 Stop: 05/24/25 13:55 Last Admin: 04/24/25 14:47 Dose: 10 mg Hydralazine HCl (Hydralazine Inj 20 Mg/Ml Vial) 10 mg IVP X1 ONE Stop: 04/24/25 16:09 Sodium Chloride (Ns) 1,000 mls @ 999 mls/hr IV .Q1H1M ONE Stop: 04/22/25 18:00 Last Infusion: 04/22/25 18:19 Dose: Infused Potassium Chloride (Kcl Ivpb) 10 meq in 100 mls @ 100 mls/hr IV X1 ONE Stop: 04/22/25 19:54 Last Infusion: 04/22/25 21:58 Dose: Infused Thiamine HCl 250 mg/ Sodium (Chloride) 102.5 mls @ 205 mls/hr IV X1 ONE Stop: 04/23/25 02:40 Last Infusion: 04/23/25 03:35 Dose: Infused Magnesium Sulfate (Magnesium Sulfate Ivpb) 4 gm in 50 mls @ 12.5 mls/hr IV X1 ONE Stop: 04/23/25 10:58 Last Infusion: 04/23/25 12:00 Dose: Infused Sodium Chloride (Ns) 1,000 mls @ 75 mls/hr IV .[id number] GRABIEL Stop: 05/23/25 10:44 Last Admin: 04/23/25 11:37 Dose: 75 mls/hr Magnesium Sulfate (Magnesium Sulfate Ivpb) 2 gm in 50 mls @ 25 mls/hr IV X1 ONE Stop: 04/23/25 18:38 Last Infusion: 04/23/25 20:36 Dose: Infused Ketorolac Tromethamine (Ketorolac Inj 30 Mg/Ml Vial) 30 mg IVP X1 ONE Stop: 04/22/25 19:50 Last Admin: 04/22/25 21:02 Dose: 30 mg Meclizine HCl (Meclizine Hcl 25 Mg Tablet) 25 mg PO X1 ONE Stop: 04/24/25 11:54 Last Admin: 04/24/25 12:05 Dose: 25 mg Morphine Sulfate (Morphine Sulf Inj 10 Mg/Ml Vial) 4 mg IVP X1 ONE Stop: 04/22/25 19:50 Last Admin: 04/22/25 21:03 Dose: 4 mg Ondansetron HCl (Ondansetron Inj 2 Mg/Ml Inj 2 Ml) 4 mg IVP X1 ONE; Protocol Stop: 04/22/25 19:50 Last Admin: 04/22/25 21:03 Dose: 4 mg Potassium Chloride (Potassium Chloride 10% 20 Meq/15 Ml Udc) 40 meq PO X1 ONE Stop: 04/22/25 18:56 Last Admin: 04/22/25 19:25 Dose: 40 meq Potassium Chloride (Potassium Chloride 10% 20 Meq/15 Ml Udc) 40 meq GT X1 ONE Stop: 04/22/25 22:43 Last Admin: 04/23/25 01:54 Dose: Not Given Potassium Chloride (Potassium Chloride 10% 20 Meq/15 Ml Udc) 40 meq PO X1 ONE Stop: 04/23/25 01:53 Last Admin: 04/23/25 02:04 Dose: 40 meq Potassium Chloride (Potassium Chloride 10% 20 Meq/15 Ml Udc) 40 meq GT X1 ONE Stop: 04/23/25 06:59 Last Admin: 04/23/25 14:52 Dose: Not Given Potassium Chloride (Potassium Chloride 20 Meq Tabcr) 40 meq PO X1 ONE Stop: 04/23/25 07:50 Last Admin: 04/23/25 09:35 Dose: 40 meq Potassium Chloride (Potassium Chloride 20 Meq Tabcr) 20 meq PO X1 ONE Stop: 04/23/25 07:56 Last Admin: 04/23/25 09:34 Dose: 20 meq Quetiapine Fumarate (Quetiapine Fumarate 100 Mg Tablet) 100 mg PO X1 ONE Stop: 04/24/25 20:30 Last Admin: 04/24/25 20:43 Dose: 100 mg Assessment & Plan Plan Pipe is a 44 year old female with a past medical history of hypertension, diabetes mellitus type 2 non insulin depdent, Fibromyalgia, history of Hemochromatosis, Crohn's Disease, Alcohol Use Disorder, tachycardia on atenolol who was admitted for syncope. #Vertigo Patient has complained of continued vertigo that is not positional. Vertigo is present when patient is supsine or stanidng up. Denied being triggered by position. Given admission for alcohol withdrawal on CIWA protocol with elevated ethyl alcohol level maybe secondary to alcohol use disorder. Patient denied history of seizure secondary to alcohol use disorder. Central vertigo can not be eliminated but unlikely given age but does have risk factors including hypertension and diabetes mellitus type 2 vs less likely secondary to meinier disease as there is no loss of hearing or positional as not triggered by position vs Seizure given concern of syncope. Diagnostics: Echo: EF 55%-60% EKG: Sinus Rythm QT 478 CT head: negative Alcohl Level 68.0 (H) Utox THC Ethyl Alcohol 68.0 H, THC Positive A1c 8.7 CIWA 4 Plan -B12, B1 -MRI w/ and w/o contrast -EEG -Othorstatic Vitals -Continue Meclizine -Consider resume metoclopramide if no improvement, short course -may benefit from Clonazepam or SSRI/Already on Quetiapine though, pending decision based on MRI/EEG #Syncope #Hypertensive Emergency #Hypertension #Alcohol Withdrawal #CIWA #Alcohol Use Disorder #Electrolyte Imbalance #Diabetes Mellitus Type 2, non insulin depdent #Tachycardia #Hemochromatotis #Crohns Disease #Fibromyalgia - The patient's plan was discussed with attending Dr. Jacqueline Guerrero MD PGY2 Internal Medicine Attending Provider Attestation/Addendum I personally have seen and examined the patient at the bedside and agreed with the resident's findings, assessment and plan of care. Impression Vertigo, syncope Multiple medical problems including hypertension, alcohol abuse, diabetes mellitus type 2, hemochromatosis, fibromyalgia, anxiety and depression Plan/recommendations Follow-up with EEG and MRI brain Consider nortriptyline 25 mg at bedtime for dual benefits
[2025-04-25] VITALS (9 sets, daily range): BP systolic 80–167; BP diastolic 60–100; PULSE 90–143; RESP 14–19; TEMP 36.1–37.1; O2SAT 97–99; BMI 21.1; BMI 21.0; BMI 15.0
--- NOTE | 2025-04-25 00:23 | PC.NURSE ---
pt complaining of pain 05/15, pt states that norco pill she got at 2042 did not help her. BP is in the 170s systolic, Dr. Wilkes was made aware. waiting for new orders for pt.
[2025-04-25] MEDS: SODIUM CHLORIDE 0.9% 1000 ML 1,000 ML 75 ML IV ×2 (01:16→17:14)
[2025-04-25 05:59] LABS: Basophils # (Auto) 0.0 Thou/mm3 (0.0-0.2); Basophils % (Auto) 0 % (0-2.5); Eosinophils # (Auto) 0.0 Thou/mm3 (0.0-0.5); Eosinophils % (Auto) 1 % (0-10); Hematocrit 43.6 % (36.0-46.0); Hemoglobin 15.4 g/dL (12.0-16.0); Immature Granulocytes Auto 0.04 Thou/mm3 (0.00-0.00); Lymphocytes # (Auto) 1.4 Thou/mm3 (1.0-4.8); Lymphocytes % (Auto) 24 % (10-50); Mean Corpuscular HGB Conc 35.3 g/dl (31.0-37.0); Mean Corpuscular Hemoglobin 37.1 pg (25.0-35.0); Mean Corpuscular Volume 105 fL (80-100); Monocytes # (Auto) 0.3 Thou/mm3 (0.0-0.8); Monocytes % (Auto) 6 % (0-12); Neutrophils # (Auto) 4.0 Thou/mm3 (1.8-7.7); Neutrophils % (Auto) 69 % (37-80); Nucleated Red Blood Cell # 0.02 Thou/mm3 (0.00-0.00); Nucleated Red Blood Cell % 0 /100 WBC (0); Platelet Count 191 Thou/mm3 (140-440); RDW Standard Deviation 54.7 fL (36.4-46.3); Red Blood Count 4.15 Miln/mm3 (4.00-5.20); White Blood Count 5.9 Thou/mm3 (3.6-11.0)
--- NOTE | 2025-04-25 06:00 | XR_ITS ---
Examination: MRI of brain without intravenous contrast. MRI brain with intravenous contrast. Date and time of exam:April 25, 2025, 1419 hours INDICATIONS: Syncopal episodes and dizziness beginning 2 weeks ago Technique: Multiple axial and sagittal images of the brain to been obtained. Siemens high-resolution 1.52 Radha short bore scanner utilized. Sagittal sections, T1 weighted images, TR 500, TE 14, are performed. Axial sections proton-density and T2-weighted images have been obtained. Inversion recovery axial images, TR 9260, TE 111, TR 2500. Diffusion weighted images, axial sections, TR 4800, TE 128, B value 1000. Axial sections, ADC map, TR 4800, TE 128. Axial and coronal images were also obtained post 12 cc gadolinium administered intravenously. Findings:: Enlargement of the sella turcica is not present. The optic chiasm and infundibular stalk are not remarkable. There is no localized enlargement of the medulla or akilah. Fourth ventricle and cerebellar tonsils appear normal in position. No subacute area of hemorrhage density is seen. Fourth ventricle is midline. Mass in the cerebellopontine angle region is not evident. 7th and 8th nerve complexes exhibit symmetry Globes are symmetrical Orbital musculature including medial lateral rectus muscles do not exhibit abnormality Increased white matter signal is evident, punctate focus increased signal left frontal white matter FLAIR image 14 Effacement of the cortical sulcal markings is not identified. Mass effect upon the ventricular system is not identified. Diffusion-weighted images demonstrate no focus of restricted diffusion Contrast images demonstrate no abnormal enhancement Impression: Punctate focus increased signal left frontal white matter, FLAIR image 14, demyelinating disease pattern
[2025-04-25 06:10] LABS: Vitamin B12 379 pg/mL (211-911)
[2025-04-25 06:15] LABS: Alanine Aminotransferase 25 U/L (10-49); Albumin, Serum 4.1 gm/dL (3.5-5.0); Albumin/Globulin Ratio 2.0 (1.2-2.2); Alkaline Phosphatase 85 U/L (46-116); Anion Gap 14 (7-16); Aspartate Amino Transferase 41 U/L (0-34); BUN/Creatinine Ratio 7 Ratio (12-20); Bilirubin,Total 0.9 mg/dL (0.3-1.2); Blood Urea Nitrogen < 5 mg/dL (9-23); Calcium 9.4 mg/dL (8.3-10.6); Calcium (Corrected) 9.4 mg/dL (8.5-10.1); Carbon Dioxide 25.7 mMol/L (20.0-31.0); Chloride 99 mMol/L (98-107); Creatinine (Component) 0.7 mg/dL (0.6-1.3); Estimated Creatinine Clearance 94.0 mL/min (>60); Globulin 2.1 gm/dL (2.3-3.5); Glucose 118 mg/dL (74-106); Magnesium 1.2 mg/dL (1.6-2.6); Osmolality,Calculated 275 (275-295); Phosphorous 2.8 mg/dL (2.4-5.1); Sodium 139 mMol/L (136-145); Total Protein 6.2 gm/dL (5.7-8.2); eGFR > 60 See Note
[2025-04-25 06:19] LABS: Potassium 2.7 mMol/L (3.4-5.1)
[2025-04-25] MEDS: POTASSIUM CHL 10 mEq IVPB 10 MEQ/100 ML BAG 100 MEQ IV (06:44)
[2025-04-25] MEDS: Magnesium Sulfate 4 GM Ivpb 4 GM/50 ML BAG IV ×2 (07:52→18:01)
[2025-04-25] MEDS: POTASSIUM CHL 10 mEq IVPB 10 MEQ/100 ML BAG 50 MEQ IV ×3 (08:24→12:00)
[2025-04-25] MEDS: ENOXAPARIN SOD INJ 40 MG/0.4 ML SYRINGE SC (08:30)
[2025-04-25] MEDS: FOLIC ACID 1 MG TABLET PO (08:31)
[2025-04-25] MEDS: THIAMINE 100 MG TABLET PO (08:31)
[2025-04-25] MEDS: LOSARTAN POTASSIUM 25 MG TABLET 100 MG PO (08:32)
[2025-04-25] MEDS: MECLIZINE HCL 25 MG TABLET PO (10:05)
[2025-04-25] MEDS: INSULIN LISPRO (AdmeLOG) 1 UNIT/0.01 ML UNIT SC ×2 (12:01→17:13)
--- NOTE | 2025-04-25 12:29 | EKG_ITS ---
[facility] Test Date: 2025-04-25 Pat Name: MERE GUILLEN Department: Room: S279A Gender: Female Gr[employer] Gear Tool: DI : 1980 Requested By: Júnior Kern Order Number: [id number] Reading MD: Júnior Kern Measurements Intervals [place] Rate: 128 P: 43 MN: 119 QRS: -16 QRSD: 82 T: 25 QT: 347 QTc: 507 Interpretive Statements SINUS TACHYCARDIA WITH SHORT MN INTERVAL INFERIOR MYOCARDIAL INFARCTION , PROBABLY OLD Compared to ECG 04/22/2025 18:22:26 Short MN interval now present Myocardial infarct finding now present Sinus rhythm no longer present T-wave abnormality no longer present Possible ischemia no longer present /store/S0/[id number].pdf
--- NOTE | 2025-04-25 13:26 | PC.SS ---
SS follow up note; Potassium being monitored. Patient will discharge within 1-2 days.
--- NOTE | 2025-04-25 14:26 | PD.RESPRO ---
Documentation for date of: 04/25/25 Subjective Subjective Interval history: Pipe is a 44 year old female with a past medical history of hypertension, diabetes mellitus type 2 non insulin depdent, Fibromyalgia, history of Hemochromatosis, Crohn's Disease, Alcohol Use Disorder, tachycardia on atenolol who was admitted for syncope. 04/25/2025: Patine contiues to dizziness and generalized body pain. No overnight events reported for patient. CIWA 4. EEG, no seizure activity noted. MRI brain, punctate focus increased in singal left front white matter, no tumors noted or signs of stroke. Consider Nortiptyline for pain or Abilify, may also be started in outpatient setting. Exam Vital Signs Temp Pulse Resp BP Pulse Ox O2 Del Method 96.9 F 102 H 14 142/89 H 97 Room Air 04/25/25 12:00 04/25/25 12:00 04/25/25 12:00 04/25/25 12:00 04/25/25 12:00 04/25/25 12:00 Narrative Exam General Appearance: Alert & Oriented X3, well-nourished female who is lying in bed in no acute distress. HEENT: Skull symmetrical and atraumatic. Conjunctivae pin and moist. Pupils equal, round, reactive to light and accommodation (PERRL). External ear without lesion or discharge. Straight, nares patient, mucosa pink, no discharge. No thyroid nodule appreciated. No cervical lymphadenopathy. Cardio: Normal Rate and Rhythm with S1 and S2 heart sounds. No murmurs or extra heart sounds auscultated. No bruits on carotid auscultation. No peripheral edema or cyanosis. Lungs: Symmetric with good expansion. Chest and back non-tender. Breath sounds vesicular without crackles, wheezing or rhonchi Abdomen: Non-tender, Non-distended, Normal Reactive Bowel Sounds Neuro: Alert, cooperative, oriented to person, place, and time. Speech clear. CN grossly intact. Upper motor strength 5/5 and Lower motor strength 5/5. Sensation intact. Objective Labs 04/25/25 04:40 04/25/25 14:56 Labs: Laboratory Results - last 24 hr 04/25/25 04:40 WBC 5.9 D RBC 4.15 Hgb 15.4 Hct 43.6 MCV 105 H MCH 37.1 H MCHC 35.3 RDW Std Deviation 54.7 H Plt Count 191 Neut % (Auto) 69 Lymph % (Auto) 24 [place] % (Auto) 6 Eos % (Auto) 1 Baso % (Auto) 0 Neut # (Auto) 4.0 Lymph # (Auto) 1.4 [place] # (Auto) 0.3 Eos # (Auto) 0.0 Baso # (Auto) 0.0 Immature Gran # (Auto) 0.04 H Absolute Nucleated RBC 0.02 H Immature Gran % 1 H Nucleated RBC % 0 Sodium 139 Potassium 2.7 L* D Chloride 99 Carbon Dioxide 25.7 Anion Gap 14 BUN < 5 L Creatinine 0.7 Estim Creat Clear Calc 94.0 eGFR > 60 BUN/Creatinine Ratio 7 L Glucose 118 H Calculated Osmolality 275 Calcium 9.4 Corrected Calcium 9.4 Phosphorus 2.8 Magnesium 1.2 L Total Bilirubin 0.9 AST 41 H ALT 25 Alkaline Phosphatase 85 Total Protein 6.2 Albumin 4.1 D Globulin 2.1 L Albumin/Globulin Ratio 2.0 Vitamin B12 379 Quality Measures Quality Measures VTE prophylaxis Assessment & Plan Assessment Current Active Medications: Generic Name Dose Route Start Last Admin Trade Name Freq PRN Reason Stop Dose Admin Acetaminophen 650 mg 04/24/25 11:08 Acetaminophen 325 Mg Tablet PO 05/22/25 23:28 Q6H PRN Fever >100.4 or pain 1-3 Protocol Amlodipine Besylate 10 mg 04/25/25 09:00 04/25/25 08:33 Amlodipine Besylate 5 Mg Tablet PO 05/25/25 08:59 10 mg QDAY GRABIEL Administration Cyclobenzaprine HCl 10 mg 04/24/25 16:15 04/25/25 08:32 Cyclobenzaprine 5 Mg Tablet PO 05/24/25 16:14 10 mg DAILY GRABIEL Administration Dextrose 25 ml 04/22/25 23:34 Dextrose 50%-Water Inj 50 Ml Syringe IV 05/22/25 23:33 Q15MIN PRN BG 50-70 responsive npo pt Dextrose 50 ml 04/22/25 23:34 Dextrose 50%-Water Inj 50 Ml Syringe IV 05/22/25 23:33 Q15MIN PRN BG <50 OR BG <70 & pt unresponsive Diazepam 5 mg 04/23/25 02:08 Diazepam Inj 5 Mg/Ml Vial 2 Ml IVP 04/28/25 02:07 Q2HR PRN CIWA SCORE 16-19 Enoxaparin Sodium 40 mg 08/19/25 09:00 04/25/25 08:30 Enoxaparin Sod Inj 40 Mg/0.4 Ml Syringe SC 05/07/25 08:59 40 mg QDAY GRABIEL Administration Folic Acid 1 mg 04/23/25 09:00 04/25/25 08:31 Folic Acid 1 Mg Tablet PO 05/23/25 08:59 1 mg QDAY GRABIEL Administration Glucagon 1 mg 04/22/25 23:34 Glucagon Inj 1 Mg Vial IM Q15MIN PRN BG <70, and no IV access Hydralazine HCl 10 mg 04/24/25 16:12 04/24/25 16:29 Hydralazine Inj 20 Mg/Ml Vial IVP 05/24/25 16:14 10 mg Q6H PRN Administration SBP > 180, hold if SBP < 140 Sodium Chloride 1,000 mls @ 75 mls/hr 04/23/25 11:45 04/25/25 01:16 Ns IV 05/23/25 11:44 75 mls/hr .[id number] GRABIEL Administration Insulin Human Lispro 0 unit 04/23/25 07:30 04/25/25 12:01 Insulin Lispro (Admelog) 1 Unit/0.01 Ml Unit SC 05/23/25 07:29 1 unit AC GRABIEL Administration Protocol Lidocaine 1 patch 04/24/25 11:54 Lidocaine 5% 1 Patch TOP 05/24/25 11:53 X1 PRN LOCALIZED PAIN Lorazepam 2 mg 04/23/25 02:12 Lorazepam 0.5 Mg Tablet PO 04/28/25 02:11 Q4HR PRN CIWA SCORE 12-15 Lorazepam 1 mg 04/23/25 02:12 Lorazepam 0.5 Mg Tablet PO 04/28/25 02:11 Q4HR PRN CIWA SCORE 8-11 Losartan Potassium 100 mg 04/23/25 17:45 04/25/25 08:32 Losartan Potassium 25 Mg Tablet PO 05/23/25 17:44 100 mg QDAY GRABIEL Administration Meclizine HCl 25 mg 04/25/25 10:01 04/25/25 10:05 Meclizine Hcl 25 Mg Tablet PO 05/25/25 10:00 25 mg X1 PRN Administration DIZZINESS Ondansetron HCl 4 mg 04/22/25 23:29 04/24/25 20:42 Ondansetron Inj 2 Mg/Ml Inj 2 Ml IVP 05/22/25 23:28 4 mg Q6H PRN Administration NAUSEA OR VOMITING Protocol Oxycodone/Acetaminophen 1 tab 04/25/25 10:11 Oxycodone/Apap 5/325 Tablet PO 04/30/25 10:10 Q6HR PRN PAIN 4-10 Quetiapine Fumarate 100 mg 04/25/25 21:00 Quetiapine Fumarate 100 Mg Tablet PO 05/25/25 20:59 HS GRABIEL Thiamine HCl 100 mg 04/23/25 09:00 04/25/25 08:31 Thiamine 100 Mg Tablet PO 05/23/25 08:59 100 mg QDAY GRABIEL Administration Plan Pipe is a 44 year old female with a past medical history of hypertension, diabetes mellitus type 2 non insulin depdent, Fibromyalgia, history of Hemochromatosis, Crohn's Disease, Alcohol Use Disorder, tachycardia on atenolol who was admitted for syncope. #Vertigo Patient has complained of continued vertigo that is not positional. Vertigo is present when patient is supsine or stanidng up. Denied being triggered by position. Given admission for alcohol withdrawal on CIWA protocol with elevated ethyl alcohol level maybe secondary to alcohol use disorder. Patient denied history of seizure secondary to alcohol use disorder. Central vertigo, less likely as MRI did not show any turmors or strokes but unlikely given age but does have risk factors including hypertension and diabetes mellitus type 2 vs less likely secondary to meinier disease as there is no loss of hearing or positional as not triggered by position vs Seizure given concern of syncope. Diagnostics: MRI: Punctate focus increased signal left frontal white matter, FLAIR image 14, demyelinating disease pattern EEG Negative B12 379 B1 pending Echo: EF 55%-60% EKG: Sinus Rythm QT 478 CT head: negative Alcohl Level 68.0 (H) Utox THC Ethyl Alcohol 68.0 H, THC Positive A1c 8.7 CIWA 4 Plan -Consider Nortriptyline 25 mg once daily for pain management or Abilify- may also start in outpatinet setting. -Othorstatic Vitals -Continue Meclizine -Consider resume metoclopramide if no improvement, short course #Syncope #Hypertensive Emergency #Hypertension #Alcohol Withdrawal #CIWA #Alcohol Use Disorder #Electrolyte Imbalance #Diabetes Mellitus Type 2, non insulin depdent #Tachycardia #Hemochromatotis #Crohns Disease #Fibromyalgia - The patient's plan was discussed with attending Dr. Jacqueline Guerrero MD PGY2 Internal Medicine Attending Provider Attestation/Addendum I personally have seen and examined the patient at the bedside and agree with resident's findings, assessment and plan of care. Impression: Syncope/vertigo/headache and neck pain: With a negative MRI brain and EEG Plan/recommendations Consider adding Abilify in addition to Cymbalta for better treatment of her mental health symptoms Reassurance given to the patient regarding the negative workup so far. Noted that she does have an appointment with the marketing analytics manager, hematology oncologist, psychiatrist, psychologist.
[2025-04-25 15:28] LABS: Potassium 3.6 mMol/L (3.4-5.1)
--- NOTE | 2025-04-25 17:37 | ESPR_ITS ---
<Statement entered by Júnior Kern MD - 04/25/25 17:42> Senior Resident Attestation: I supervised/discussed management plan with internet manager physician Dr. Pat, and was involved in the care of this patient. I personally saw and examined the patient and discussed the assessment and plan with the entire medicine team, including my attending. I agree with the assessment and plan as documented. Neurology recommended to perform MRI and EEG to complete workup. Patient's potassium was repleted, repeat potassium showed potassium 3.6 and she was given additional potassium. Will continue current management and monitor patient. Patient's care was discussed with attending physician, Dr. Hayes. Júnior Kern MD PGY-3. Documentation for date of: 04/25/25 Subjective Subjective Interval history: Patient was seen at the bedside this morning. Overnight, the night team repleted her potassium and magnesium, discontinued Tolar, and administered a one-time dose of Percocet. Patient continues to report dizziness, even while lying down, along with generalized weakness, nausea, and shaky hands. Patient's last alcoholic drink was on Tuesday around 1?2 PM. She states that the meclizine yesterday has provided minimal relief. She is also experiencing a headache, which she rates as 9/10. Although she has a history of migraines, she notes that this headache feels different from her typical migraines. She reports her last bowel movement was yesterday and denies dysuria. Regarding her back pain, she states she does not want to use the lidocaine patch as it irritates her skin. Exam Vital Signs Temp Pulse Resp BP Pulse Ox O2 Del Method 97.5 F 104 H 15 130/91 H 98 Room Air 04/25/25 16:00 04/25/25 16:00 04/25/25 16:00 04/25/25 16:00 04/25/25 16:00 04/25/25 16:00 Narrative Exam Physical Exam General: Awake and in no acute distress. Conversational and non-toxic appearing. HEENT: Normocephalic, atraumatic, mucous membranes moist. Heart: Regular rate and rhythm, no murmurs. Lungs: Clear to auscultation with no wheezing or crackles. Abdomen: Soft, nondistended, nontender. No guarding or rebound tenderness. Neurologic: Alert and oriented x3, no gross neurological deficit, and patient able to move all 4 extremities. Extremities: No edema. Skin: No rash or ecchymoses. Objective Labs 04/26/25 05:50 04/26/25 05:50 Labs: Laboratory Results - last 24 hr 04/25/25 04/25/25 04:40 14:56 WBC 5.9 D RBC 4.15 Hgb 15.4 Hct 43.6 MCV 105 H MCH 37.1 H MCHC 35.3 RDW Std Deviation 54.7 H Plt Count 191 Neut % (Auto) 69 Lymph % (Auto) 24 [place] % (Auto) 6 Eos % (Auto) 1 Baso % (Auto) 0 Neut # (Auto) 4.0 Lymph # (Auto) 1.4 [place] # (Auto) 0.3 Eos # (Auto) 0.0 Baso # (Auto) 0.0 Immature Gran # (Auto) 0.04 H Absolute Nucleated RBC 0.02 H Immature Gran % 1 H Nucleated RBC % 0 Sodium 139 Potassium 2.7 L* D 3.6 D Chloride 99 Carbon Dioxide 25.7 Anion Gap 14 BUN < 5 L Creatinine 0.7 Estim Creat Clear Calc 94.0 eGFR > 60 BUN/Creatinine Ratio 7 L Glucose 118 H Calculated Osmolality 275 Calcium 9.4 Corrected Calcium 9.4 Phosphorus 2.8 Magnesium 1.2 L Total Bilirubin 0.9 AST 41 H ALT 25 Alkaline Phosphatase 85 Total Protein 6.2 Albumin 4.1 D Globulin 2.1 L Albumin/Globulin Ratio 2.0 Vitamin B12 379 Quality Measures Quality Measures VTE prophylaxis Assessment & Plan Assessment Current Active Medications: Generic Name Dose Route Start Last Admin Trade Name Indu PRN Reason Stop Dose Admin Acetaminophen 650 mg 04/24/25 11:08 Acetaminophen 325 Mg Tablet PO 05/22/25 23:28 Q6H PRN Fever >100.4 or pain 1-3 Protocol Amlodipine Besylate 10 mg 04/25/25 09:00 04/25/25 08:33 Amlodipine Besylate 5 Mg Tablet PO 05/25/25 08:59 10 mg QDAY GRABIEL Administration Cyclobenzaprine HCl 10 mg 04/24/25 16:15 04/25/25 08:32 Cyclobenzaprine 5 Mg Tablet PO 05/24/25 16:14 10 mg DAILY GRABIEL Administration Dextrose 25 ml 04/22/25 23:34 Dextrose 50%-Water Inj 50 Ml Syringe IV 05/22/25 23:33 Q15MIN PRN BG 50-70 responsive npo pt Dextrose 50 ml 04/22/25 23:34 Dextrose 50%-Water Inj 50 Ml Syringe IV 05/22/25 23:33 Q15MIN PRN BG <50 OR BG <70 & pt unresponsive Diazepam 5 mg 04/23/25 02:08 Diazepam Inj 5 Mg/Ml Vial 2 Ml IVP 04/28/25 02:07 Q2HR PRN CIWA SCORE 16-19 Enoxaparin Sodium 40 mg 04/23/25 09:00 04/25/25 08:30 Enoxaparin Sod Inj 40 Mg/0.4 Ml Syringe SC 05/07/25 08:59 40 mg QDAY GRABIEL Administration Folic Acid 1 mg 04/23/25 09:00 04/25/25 08:31 Folic Acid 1 Mg Tablet PO 05/23/25 08:59 1 mg QDAY GRABIEL Administration Glucagon 1 mg 04/22/25 23:34 Glucagon Inj 1 Mg Vial IM Q15MIN PRN BG <70, and no IV access Hydralazine HCl 10 mg 04/24/25 16:12 04/24/25 16:29 Hydralazine Inj 20 Mg/Ml Vial IVP 05/24/25 16:14 10 mg Q6H PRN Administration SBP > 180, hold if SBP < 140 Sodium Chloride 1,000 mls @ 75 mls/hr 04/23/25 11:45 04/25/25 17:14 Ns IV 05/23/25 11:44 75 mls/hr .[id number] GRABIEL Administration Insulin Human Lispro 0 unit 04/23/25 07:30 04/25/25 17:13 Insulin Lispro (Admelog) 1 Unit/0.01 Ml Unit SC 05/23/25 07:29 1 unit AC GRABIEL Administration Protocol Lidocaine 1 patch 04/24/25 11:54 Lidocaine 5% 1 Patch TOP 05/24/25 11:53 X1 PRN LOCALIZED PAIN Lorazepam 2 mg 04/23/25 02:12 Lorazepam 0.5 Mg Tablet PO 04/28/25 02:11 Q4HR PRN CIWA SCORE 12-15 Lorazepam 1 mg 04/23/25 02:12 Lorazepam 0.5 Mg Tablet PO 04/28/25 02:11 Q4HR PRN CIWA SCORE 8-11 Losartan Potassium 100 mg 04/23/25 17:45 04/25/25 08:32 Losartan Potassium 25 Mg Tablet PO 05/23/25 17:44 100 mg QDAY GRABIEL Administration Meclizine HCl 25 mg 04/25/25 10:01 04/25/25 10:05 Meclizine Hcl 25 Mg Tablet PO 05/25/25 10:00 25 mg X1 PRN Administration DIZZINESS Ondansetron HCl 4 mg 04/22/25 23:29 04/24/25 20:42 Ondansetron Inj 2 Mg/Ml Inj 2 Ml IVP 05/22/25 23:28 4 mg Q6H PRN Administration NAUSEA OR VOMITING Protocol Oxycodone/Acetaminophen 1 tab 04/25/25 10:11 04/25/25 16:14 Oxycodone/Apap 5/325 Tablet PO 04/30/25 10:10 1 tab Q6HR PRN Administration PAIN 4-10 Quetiapine Fumarate 100 mg 04/25/25 21:00 Quetiapine Fumarate 100 Mg Tablet PO 05/25/25 20:59 HS GRABIEL Thiamine HCl 100 mg 04/23/25 09:00 04/25/25 08:31 Thiamine 100 Mg Tablet PO 05/23/25 08:59 100 mg QDAY GRABIEL Administration Plan 44 year-old female with past medical history significant for alcohol use disorder, diabetes, Crohn's disease, polycythemia, hypertension, and hemochromatosis presents for recurrent syncope over the past few weeks, admitted for workup of syncope. #Vertigo Likely multifactorial. Differential includes: vasovagal: consistent with prodromal symptoms of flushing and visual changes vs arrhythmogenic: potential contribution from severe hypokalemia, beta-laci use (atenolol), alcohol use, or underlying cardiomyopathy (e.g., hemochromatosis-related) vs orthostatic hypotension: possible contributor, given history of diabetes, alcohol use, and antihypertensive medications. Head CT, CXR, EKG unremarkable. K 2.3, repleted. Urine toxicology positive for THC. Orthostatic vitals negative. MRI of brain (04/25): Punctate focus increased signal left frontal white matter, demyelinating disease pattern. Plan - Daily BMP to track electrolyte trends. - EEG pending neurologist read. - Neurology consulted - appreciate recs: Consider short course of metoclopramide if no improvement. May benefit from Clonazepam or SSRI, pending decision based on MRI/EEG. #Hypertensive urgency (resolved) Highest BP was 191/115. IV hydralazine 10mg given. BP improved to 164/110. Plan: - Hold atenolol for now. May be contributing to dizziness/syncope. - Continue home losartan 100mg daily. - Continue Amlodipine 10 mg daily. - IV hydralazine 10 mg Q6H PRN SBP > 180, hold if SBP < 140. #Severe Hypokalemia (resolved) Potassium 2.3 on admission. Patient has a longstanding history of hypokalemia, previously requiring emergency department repletion but never hospitalized for it. Current episode is likely multifactorial, with contributing factors including: poor nutritional intake and/or malabsorption secondary to Crohn?s disease vs chronic alcohol use may lead to renal potassium wasting and poor intake vs Jardiance use which may cause volume depletion and renal potassium losses. Plan: - Monitor daily potassium. - Replete as needed. - Check magnesium level, as hypomagnesemia can impair potassium repletion. - Monitor for arrhythmias given initial critically low value. #Diabetes Mellitus, [id number] Hemoglobin A1c 8.7. Plan - Hold home Jaridiance. - ISS, adjust as needed. #Subclinical hypothyroidism TSH mildy elevated at 5.6. Free T4 normal at 1.19. Patient is currently asymptomatic. Plan: - No immediate treatment indicated as patient is asymptomatic and Free T4 is normal. - Recommend outpatient follow-up for anti-thyroid peroxidase (anti-TPO) antibodies to assess for autoimmune thyroiditis with history of Crohn's disease. #Alcohol abuse disorder Patient drinks half pint of alcohol daily for over a year. Last alcoholic drink was 04/22 around 1-2pm. Alcohol level 68 on admission. No symptoms of alcohol withdrawal present currently. AST 45, ALT 29, ALP 78. Plan - CIWA protocol, currently CIWA 4. - Thiamine and folate given. - Monitor for withdrawal symptoms (tremors, diaphoresis, agitation, anxiety, hallucination, tachycardia, hypertension). - Correct hypokalemia, hypomagesemia, and hypophosphatemia as all can lower seizure threshold. - Seizure precautions. #Hemochromatosis Diagnosed about 2 years ago according to patient. At risk for restrictive cardiomyopathy and arrhythmia. Cardiac involvement is a particular concern in this patient given the history of syncopal episodes. Ferritin 85, Iron 155, TIBC 267, Iron sat 58. Echo (04/22): Mild LVH, Normal LV size and function. EF estimated 55-60%. Mild [place] and Mild TR. Plan: - Ferritin within normal range. Absence of increase ferritin suggests that significant iron overload and organ damage unlikely at this time. #Polycythemia Hemoglobin 13.9, hematocrit 39.8 Platelet 158. Plan: - May consider serum viscosity test as hyperviscosity symptoms include dizziness and visual changes. #Crohn's Disease Currently no flare symptoms. GI specialist in [place]. Plan: - Monitor for anemia or electrolyte abnormalities if diarrhea develops. #Fibromyalgia Plan: - Percocet as needed for pain. #Lumbar spinal stenosis Lumbar spine CT (04/23): L5-S1 5 mm central lumbar disc bulge contiguous with the right and left S1 nerve roots. Plan: - Percocet as needed for pain #Insomnia Plan: - Quetiapine 100mg QHS. Health Maintenance: DVT prophylaxis: Lovenox GI prophylaxis: None Diet: Carb consistent/cardiac Lines: Peripheral IV Code status: Full code Patient plan of care was discussed with the senior resident, Dr. Kern and attending physician, Dr. Hayes. Adeola Pat DO PGY-1 Attending Provider Attestation/Addendum Kiera Lainez DO, attest that I was physically present for the manning portions of the service and evaluated the patient with the resident and I reviewed and discussed the case with the resident and agree with the resident's findings and plans of care as documented above Patient seen and evaluated this AM. She states that she is very tired today. Patient did receive seroquel this morning. Patient reported some improvement of dizziness with the meclizine yesterday. Will place it as a prn. BP better controlled today. Evaluated by neurology, awaiting EEG and MRI at this time. Will f/u with neurology recommendations. Patient is otherwise stable. Anticipate DC within next 24h. Pain is better controlled per patient.
--- NOTE | 2025-04-25 20:44 | PC.WOUND ---
made Dr. Abdi aware of patient blood sugar reading of 214 mg/dL . per MD no insulin coverage as of now.
[2025-04-25] MEDS: ONDANSETRON INJ 2 MG/ML INJ 2 ML 4 MG IVP (20:46)
[2025-04-26] VITALS (7 sets, daily range): BP systolic 113–165; BP diastolic 72–110; PULSE 100–128; RESP 12–20; TEMP 36.3–37.3; O2SAT 96–99; BMI 21.0; BMI 15.0
[2025-04-26] MEDS: SODIUM CHLORIDE 0.9% 1000 ML 1,000 ML 75 ML IV ×2 (05:55→20:07)
[2025-04-26 06:16] LABS: Basophils # (Auto) 0.0 Thou/mm3 (0.0-0.2); Basophils % (Auto) 1 % (0-2.5); Eosinophils # (Auto) 0.1 Thou/mm3 (0.0-0.5); Eosinophils % (Auto) 2 % (0-10); Hematocrit 38.4 % (36.0-46.0); Hemoglobin 13.3 g/dL (12.0-16.0); Immature Granulocytes Auto 0.05 Thou/mm3 (0.00-0.00); Lymphocytes # (Auto) 1.2 Thou/mm3 (1.0-4.8); Lymphocytes % (Auto) 25 % (10-50); Mean Corpuscular HGB Conc 34.6 g/dl (31.0-37.0); Mean Corpuscular Hemoglobin 36.7 pg (25.0-35.0); Mean Corpuscular Volume 106 fL (80-100); Monocytes # (Auto) 0.4 Thou/mm3 (0.0-0.8); Monocytes % (Auto) 9 % (0-12); Neutrophils # (Auto) 2.9 Thou/mm3 (1.8-7.7); Neutrophils % (Auto) 63 % (37-80); Nucleated Red Blood Cell # 0.00 Thou/mm3 (0.00-0.00); Nucleated Red Blood Cell % 0 /100 WBC (0); Platelet Count 166 Thou/mm3 (140-440); RDW Standard Deviation 55.8 fL (36.4-46.3); Red Blood Count 3.62 Miln/mm3 (4.00-5.20); White Blood Count 4.6 Thou/mm3 (3.6-11.0)
[2025-04-26 06:50] LABS: Alanine Aminotransferase 30 U/L (10-49); Albumin, Serum 3.6 gm/dL (3.5-5.0); Albumin/Globulin Ratio 1.6 (1.2-2.2); Alkaline Phosphatase 95 U/L (46-116); Anion Gap 11 (7-16); Aspartate Amino Transferase 68 U/L (0-34); BUN/Creatinine Ratio 8 Ratio (12-20); Bilirubin,Total 0.5 mg/dL (0.3-1.2); Blood Urea Nitrogen < 5 mg/dL (9-23); Calcium 8.9 mg/dL (8.3-10.6); Calcium (Corrected) 9.2 mg/dL (8.5-10.1); Carbon Dioxide 23.8 mMol/L (20.0-31.0); Chloride 104 mMol/L (98-107); Creatinine (Component) 0.6 mg/dL (0.6-1.3); Estimated Creatinine Clearance 109.7 mL/min (>60); Globulin 2.2 gm/dL (2.3-3.5); Glucose 190 mg/dL (74-106); Magnesium 2.0 mg/dL (1.6-2.6); Osmolality,Calculated 279 (275-295); Phosphorous 1.8 mg/dL (2.4-5.1); Potassium 3.1 mMol/L (3.4-5.1); Sodium 139 mMol/L (136-145); Total Protein 5.8 gm/dL (5.7-8.2); eGFR > 60 See Note
[2025-04-26] MEDS: INSULIN LISPRO (AdmeLOG) 1 UNIT/0.01 ML UNIT SC ×4 (08:26→22:04)
[2025-04-26] MEDS: FOLIC ACID 1 MG TABLET PO (08:27)
[2025-04-26] MEDS: ENOXAPARIN SOD INJ 40 MG/0.4 ML SYRINGE SC (08:27)
[2025-04-26] MEDS: LOSARTAN POTASSIUM 25 MG TABLET 100 MG PO (08:27)
[2025-04-26] MEDS: THIAMINE 100 MG TABLET PO (09:27)
[2025-04-26] MEDS: POT PHOS 15 mMol in NS 250 ML 15 MMOL/250 ML BAG 62.5 MMOL IV ×2 (09:28→14:06)
--- NOTE | 2025-04-26 11:27 | CHAP ---
Patient was visited by the Spiritual Care Volunteer who prayed for them silently due to sleeping. (Volunteer was in the hospital from 09:00-11:27)
--- NOTE | 2025-04-26 11:56 | ESPR_ITS ---
<Statement entered by Felipe Melissa MD - 04/26/25 17:31> Patient was examined and case was reviewed with team including attending physician. Note reviewed, I agree with most of its contents and agree with the patient's care as documented by Dr. Pat Patient seen today at the bedside found awake, alert, orientedx3. No overnight events reported. Vital signs stable at this time. MRI showed a punctate focus of increased signal in the left frontal white matter, with no evidence of tumor or stroke. Neurology recommends considering Nortriptyline or Abilify for pain management, which can be started by PCP in the outpatient setting. Possible SNF placement at time of discharge, patient is agreeable at the time of IM team evaluation. Felipe Melissa MD PGY-2 Documentation for date of: 04/26/25 Subjective Subjective Interval history: Patient was seen at the bedside this morning. No overnight events reported. She continues to report dizziness, weakness, headaches, and lower back pain. States that Flexeril and Percocet provide better relief when taken together for her back pain. CIWA score has improved from 4 to 2. EEG showed no seizure activity. MRI brain revealed a punctate focus of increased signal in the left frontal white matter, with no evidence of tumor or stroke. Neurology recommends considering Nortriptyline or Abilify for pain management, which may be initiated on an outpatient basis. Patient is agreeable for SNF after discharge. medical and health services manager initiated authorization for [facility]. Exam Vital Signs Temp Pulse Resp BP Pulse Ox O2 Del Method 97.4 F 100 13 151/107 H 97 Room Air 04/26/25 08:00 04/26/25 08:27 04/26/25 08:00 04/26/25 08:27 04/26/25 08:00 04/26/25 08:00 Narrative Exam Physical Exam General: Awake and in no acute distress. Conversational and non-toxic appearing. HEENT: Normocephalic, atraumatic, mucous membranes moist. Heart: Regular rate and rhythm, no murmurs. Lungs: Clear to auscultation with no wheezing or crackles. Abdomen: Soft, nondistended, nontender. No guarding or rebound tenderness. Neurologic: Alert and oriented x3, no gross neurological deficit, and patient able to move all 4 extremities. Extremities: No edema. Skin: No rash or ecchymoses. Objective Labs 04/27/25 07:31 04/27/25 07:31 Labs: Laboratory Results - last 24 hr 04/25/25 04/26/25 14:56 05:50 WBC 4.6 RBC 3.62 L Hgb 13.3 D Hct 38.4 MCV 106 H MCH 36.7 H MCHC 34.6 RDW Std Deviation 55.8 H Plt Count 166 Neut % (Auto) 63 Lymph % (Auto) 25 [place] % (Auto) 9 Eos % (Auto) 2 Baso % (Auto) 1 Neut # (Auto) 2.9 Lymph # (Auto) 1.2 [place] # (Auto) 0.4 Eos # (Auto) 0.1 Baso # (Auto) 0.0 Immature Gran # (Auto) 0.05 H Absolute Nucleated RBC 0.00 Immature Gran % 1 H Nucleated RBC % 0 Sodium 139 Potassium 3.6 D 3.1 L D Chloride 104 Carbon Dioxide 23.8 Anion Gap 11 BUN < 5 L Creatinine 0.6 Estim Creat Clear Calc 109.7 eGFR > 60 BUN/Creatinine Ratio 8 L Glucose 190 H D Calculated Osmolality 279 Calcium 8.9 Corrected Calcium 9.2 Phosphorus 1.8 L Magnesium 2.0 Total Bilirubin 0.5 AST 68 H ALT 30 Alkaline Phosphatase 95 Total Protein 5.8 Albumin 3.6 D Globulin 2.2 L Albumin/Globulin Ratio 1.6 Quality Measures Quality Measures VTE prophylaxis Assessment & Plan Assessment Current Active Medications: Generic Name Dose Route Start Last Admin Trade Name Freq PRN Reason Stop Dose Admin Acetaminophen 650 mg 04/24/25 11:08 Acetaminophen 325 Mg Tablet PO 05/22/25 23:28 Q6H PRN Fever >100.4 or pain 1-3 Protocol Amlodipine Besylate 10 mg 04/25/25 09:00 04/26/25 08:27 Amlodipine Besylate 5 Mg Tablet PO 05/25/25 08:59 10 mg QDAY GRABIEL Administration Cyclobenzaprine HCl 10 mg 04/24/25 16:15 04/26/25 08:27 Cyclobenzaprine 5 Mg Tablet PO 05/24/25 16:14 10 mg DAILY GRABIEL Administration Dextrose 25 ml 04/22/25 23:34 Dextrose 50%-Water Inj 50 Ml Syringe IV 05/22/25 23:33 Q15MIN PRN BG 50-70 responsive npo pt Dextrose 50 ml 04/22/25 23:34 Dextrose 50%-Water Inj 50 Ml Syringe IV 05/22/25 23:33 Q15MIN PRN BG <50 OR BG <70 & pt unresponsive Diazepam 5 mg 04/23/25 02:08 Diazepam Inj 5 Mg/Ml Vial 2 Ml IVP 04/28/25 02:07 Q2HR PRN CIWA SCORE 16-19 Enoxaparin Sodium 40 mg 04/23/25 09:00 04/26/25 08:27 Enoxaparin Sod Inj 40 Mg/0.4 Ml Syringe SC 05/07/25 08:59 40 mg QDAY GRABIEL Administration Folic Acid 1 mg 04/23/25 09:00 04/26/25 08:27 Folic Acid 1 Mg Tablet PO 05/23/25 08:59 1 mg QDAY GRABIEL Administration Glucagon 1 mg 04/22/25 23:34 Glucagon Inj 1 Mg Vial IM Q15MIN PRN BG <70, and no IV access Hydralazine HCl 10 mg 04/24/25 16:12 04/24/25 16:29 Hydralazine Inj 20 Mg/Ml Vial IVP 05/24/25 16:14 10 mg Q6H PRN Administration SBP > 180, hold if SBP < 140 Sodium Chloride 1,000 mls @ 75 mls/hr 04/23/25 11:45 04/26/25 05:55 Ns IV 05/23/25 11:44 75 mls/hr .[id number] GRABIEL Administration Potassium Phosphate 15 mmol in 250 mls @ 62.5 mls/hr 04/26/25 08:15 04/26/25 09:28 Pot Phos 15 Mmol In Ns 250 Ml IV 04/26/25 16:14 62.5 mls/hr Q4H GRABIEL Administration Insulin Human Lispro 0 unit 04/23/25 07:30 04/26/25 08:26 Insulin Lispro (Admelog) 1 Unit/0.01 Ml Unit SC 05/23/25 07:29 1 unit AC GRABIEL Administration Protocol Lorazepam 2 mg 04/23/25 02:12 Lorazepam 0.5 Mg Tablet PO 04/28/25 02:11 Q4HR PRN CIWA SCORE 12-15 Lorazepam 1 mg 04/23/25 02:12 04/25/25 20:47 Lorazepam 0.5 Mg Tablet PO 04/28/25 02:11 1 mg Q4HR PRN Administration CIWA SCORE 8-11 Losartan Potassium 100 mg 04/23/25 17:45 04/26/25 08:27 Losartan Potassium 25 Mg Tablet PO 05/23/25 17:44 100 mg QDAY GRABIEL Administration Meclizine HCl 25 mg 04/25/25 10:01 04/25/25 10:05 Meclizine Hcl 25 Mg Tablet PO 05/25/25 10:00 25 mg X1 PRN Administration DIZZINESS Ondansetron HCl 4 mg 04/22/25 23:29 04/25/25 20:46 Ondansetron Inj 2 Mg/Ml Inj 2 Ml IVP 05/22/25 23:28 4 mg Q6H PRN Administration NAUSEA OR VOMITING Protocol Oxycodone/Acetaminophen 1 tab 04/25/25 10:11 04/26/25 11:36 Oxycodone/Apap 5/325 Tablet PO 04/30/25 10:10 1 tab Q6HR PRN Administration PAIN 4-10 Quetiapine Fumarate 100 mg 04/25/25 21:00 04/25/25 20:47 Quetiapine Fumarate 100 Mg Tablet PO 05/25/25 20:59 100 mg HS GRABIEL Administration Thiamine HCl 100 mg 04/23/25 09:00 04/26/25 09:27 Thiamine 100 Mg Tablet PO 05/23/25 08:59 100 mg QDAY GRABIEL Administration Plan 44 year-old female with past medical history significant for alcohol use disorder, diabetes, Crohn's disease, polycythemia, hypertension, and hemochromatosis presents for recurrent syncope over the past few weeks, admitted for workup of syncope. #Vertigo Likely multifactorial. Differential includes: vasovagal: consistent with prodromal symptoms of flushing and visual changes vs arrhythmogenic: potential contribution from severe hypokalemia, beta-laci use (atenolol), alcohol use, or underlying cardiomyopathy (e.g., hemochromatosis-related) vs orthostatic hypotension: possible contributor, given history of diabetes, alcohol use, and antihypertensive medications. Head CT, CXR, EKG unremarkable. K 2.3, repleted. Urine toxicology positive for THC. Orthostatic vitals negative. MRI of brain (04/25): Punctate focus increased signal left frontal white matter, demyelinating disease pattern. Plan - Daily BMP to track electrolyte trends. - Continue Meclizine PRN. - EEG showed no seizure activity. - MRI brain revealed a punctate focus of increased signal in the left frontal white matter, with no evidence of tumor or stroke. - Neurology consulted - appreciate recs. Nortriptyline or Abilify for pain management. #Hypertensive urgency (resolved) Highest BP was 191/115. IV hydralazine 10mg given. BP improved to 164/110. Plan: - Hold atenolol for now. May be contributing to dizziness/syncope. - Continue home losartan 100mg daily. - Continue Amlodipine 10 mg daily. - IV hydralazine 10 mg Q6H PRN SBP > 180, hold if SBP < 140. #Severe Hypokalemia (resolved) Potassium 2.3 on admission. Patient has a longstanding history of hypokalemia, previously requiring emergency department repletion but never hospitalized for it. Current episode is likely multifactorial, with contributing factors including: poor nutritional intake and/or malabsorption secondary to Crohn?s disease vs chronic alcohol use may lead to renal potassium wasting and poor intake vs Jardiance use which may cause volume depletion and renal potassium losses. Plan: - Monitor daily potassium. - Replete as needed. - Check magnesium level, as hypomagnesemia can impair potassium repletion. - Monitor for arrhythmias given initial critically low value. #Diabetes Mellitus, [id number] Hemoglobin A1c 8.7. Plan - Hold home Jaridiance. - ISS, adjust as needed. #Subclinical hypothyroidism TSH mildy elevated at 5.6. Free T4 normal at 1.19. Patient is currently asymptomatic. Plan: - No immediate treatment indicated as patient is asymptomatic and Free T4 is normal. - Recommend outpatient follow-up for anti-thyroid peroxidase (anti-TPO) antibodies to assess for autoimmune thyroiditis with history of Crohn's disease. #Alcohol abuse disorder Patient drinks half pint of alcohol daily for over a year. Last alcoholic drink was 04/22 around 1-2pm. Alcohol level 68 on admission. No symptoms of alcohol withdrawal present currently. AST 45, ALT 29, ALP 78. Plan - CIWA protocol, currently CIWA 2. - Thiamine and folate given. - Monitor for withdrawal symptoms (tremors, diaphoresis, agitation, anxiety, hallucination, tachycardia, hypertension). - Correct hypokalemia, hypomagesemia, and hypophosphatemia as all can lower seizure threshold. - Seizure precautions. #Hemochromatosis Diagnosed about 2 years ago according to patient. At risk for restrictive cardiomyopathy and arrhythmia. Cardiac involvement is a particular concern in this patient given the history of syncopal episodes. Ferritin 85, Iron 155, TIBC 267, Iron sat 58. Echo (04/22): Mild LVH, Normal LV size and function. EF estimated 55-60%. Mild PR and Mild TR. Plan: - Ferritin within normal range. Absence of increase ferritin suggests that significant iron overload and organ damage unlikely at this time. #Polycythemia Hemoglobin 13.9, hematocrit 39.8 Platelet 158. Plan: - May consider serum viscosity test as hyperviscosity symptoms include dizziness and visual changes. #Crohn's Disease Currently no flare symptoms. GI specialist in [place]. Plan: - Monitor for anemia or electrolyte abnormalities if diarrhea develops. #Fibromyalgia Plan: - Percocet as needed for pain. #Lumbar spinal stenosis Lumbar spine CT (04/23): L5-S1 5 mm central lumbar disc bulge contiguous with the right and left S1 nerve roots. Plan: - Percocet as needed for pain #Insomnia Plan: - Quetiapine 100mg QHS. Health Maintenance: DVT prophylaxis: Lovenox GI prophylaxis: None Diet: Carb consistent/cardiac Lines: Peripheral IV Code status: Full code Patient plan of care was discussed with the senior resident, and attending physician, Dr. Hayes. Adeola Pat DO PGY-1 Attending Provider Attestation/Addendum Kiera Lainez DO, attest that I was physically present for the manning portions of the service and evaluated the patient with the resident and I reviewed and discussed the case with the resident and agree with the resident's findings and plans of care as documented above Patient seen and evaluated this AM. She states that she still has dizziness, but likely due to BPPV. Patient states she has been unable to ambulate due to dizziness. Patient recommended for abilify in addition to her cymbalta to be started in outpatient setting. Patient will need to stop drinking heavily. Recommended for referral to psychiatry and rheumatology. However, patient was not satisfied with recommendations, requesting second opinion. Advised patient to follow up outpatient with PCP as symptoms improve with meclizine. Patient states she cannot go home, pending SNF placement.
--- NOTE | 2025-04-26 12:44 | PC.NURSE ---
Pt is very upset about being discharged. Stated she came here for help and does not feel that she has had any improvement since being here. Pt and SO (on the phone) feel like we are just getting rid of the pt. Dr Pat at bedside, explained to pt and SO that all the tests that we have ran have been normal and that she needs to follow up with her primary as this may be a home medication issue. Pt is refusing discharge. Herminio is going to speak with Dr Hayes
--- NOTE | 2025-04-26 13:40 | PC.NURSE ---
manager financial services Shanae at bedside, discussing options with pt. Pt still adimit about not being able to care for herself if she is to be discharged. SS will speak to the doctors at 1400 when they are available and will update me
--- NOTE | 2025-04-26 14:40 | PC.SS ---
SS met with pt at to discuss DC planning. Per Team pt is refusing to return home. Per pt she still feels extremely weak, and she is unable to care for herself at home. PT has worked with pt but she was only able to walk a couple of feet. Per pt her Sister will be in town tomorrow to possibly help her. SS inquired if pt wishes to go to SNF, per pt she feels unsafe going home with no help. SNF referral submitted pending responses. Pt will require auth for SNF.
--- NOTE | 2025-04-26 15:11 | PC.NURSE ---
Pt now pending possible SNF placement. SNF referral sent per SS
--- NOTE | 2025-04-26 15:18 | PC.SS ---
SS submitted PASRR pt requires LVL 2 due to med Quetiapine 100mg PO Daily
--- NOTE | 2025-04-26 16:21 | PC.SS ---
SS went to bedside to speak to pt in regards to options for SNF. Only accepting facility is [facility]. Pt is agreeable. SS reached out to Alanna who stated she will initiate auth. Still pending LVL2 clearance. SS attempted to contact [facility] [place], message was left with bander and cellophaner machine.
--- NOTE | 2025-04-26 23:13 | PD.NEUROPROG ---
Documentation for date of: 04/26/25 Subjective Subjective Interval history: Patient was seen in [facility], continues to complain of headache dizziness and multiple symptoms. Exam - Neurology Vital Signs Temp Pulse Resp BP Pulse Ox O2 Del Method 97.3 F 118 H 12 153/102 H 98 Room Air 04/26/25 20:00 04/26/25 20:00 04/26/25 20:00 04/26/25 20:00 04/26/25 20:00 04/26/25 20:00 Narrative Exam GENERAL APPEARANCE: Well hydrated, well-nourished in no acute distress. HEENT: Normocephalic, atraumatic, extraocular movements intact. Pupils: Equal reacting to light and accommodation NECK: Supple, no JVD or bruits. CARDIOVASULAR: Heart: S1, S2 heard, regular without S3-S4 or murmur no rubs or gallops. LUNGS/CHEST: Clear to auscultation bilaterally. No rails, rhonchi, or wheezing. Normal inspection. ABDOMEN: Soft, nontender, with normal bowel sounds. No pulsatile masses. No rebound, rigidity, or guarding. Normal inspection and palpation. EXTREMITIES: Normal inspection and palpation. No edema, clubbing or cyanosis. SKIN: Warm and dry without rashes. Normal inspection. MUSCULOSKELETAL: No cervical, thoracic, lumbar or midline bony tenderness. Normal inspection. NEURO: Alert, awake and oriented x3. Cranial nerves: II through XII grossly intact. Speech and language: Normal with no dysarthria or dysphasia. Motor system: Tone and bulk: Normal: Strength: 5 out of 5 in all 4 extremities; No pronator drift noted. Deep tendon reflexes: 2+ bilaterally symmetrical. Plantar reflex: Downgoing bilaterally. Sensory system: Intact to all modalities of sensation bilaterally. Coordination: Intact to [id number]-[id number] and tjgh-efyj-dttr test bilaterally. No ataxia, no dysmetria, or dysdiadochokinesia noted. No intention tremors noted. Gait: Normal. Toe, heel, tandem walk all are normal. Romberg: Negative. No signs of meningeal irritation noted. PSYCHIATRIC: Normal mood and affect. Objective Labs 04/29/25 05:46 04/29/25 05:46 Labs: Laboratory Results - last 24 hr 04/26/25 05:50 WBC 4.6 RBC 3.62 L Hgb 13.3 D Hct 38.4 MCV 106 H MCH 36.7 H MCHC 34.6 RDW Std Deviation 55.8 H Plt Count 166 Neut % (Auto) 63 Lymph % (Auto) 25 Nicholas % (Auto) 9 Eos % (Auto) 2 Baso % (Auto) 1 Neut # (Auto) 2.9 Lymph # (Auto) 1.2 Nicholas # (Auto) 0.4 Eos # (Auto) 0.1 Baso # (Auto) 0.0 Immature Gran # (Auto) 0.05 H Absolute Nucleated RBC 0.00 Immature Gran % 1 H Nucleated RBC % 0 Sodium 139 Potassium 3.1 L D Chloride 104 Carbon Dioxide 23.8 Anion Gap 11 BUN < 5 L Creatinine 0.6 Estim Creat Clear Calc 109.7 eGFR > 60 BUN/Creatinine Ratio 8 L Glucose 190 H D Calculated Osmolality 279 Calcium 8.9 Corrected Calcium 9.2 Phosphorus 1.8 L Magnesium 2.0 Total Bilirubin 0.5 AST 68 H ALT 30 Alkaline Phosphatase 95 Total Protein 5.8 Albumin 3.6 D Globulin 2.2 L Albumin/Globulin Ratio 1.6 Assessment & Plan Additional Assessment & Plan Additional Plan: 1) Dizziness: Status: Acute Assessment and plan: Reassurance given to the patient regarding the negative workup. That she is on quetiapine 100 mg to help with the sleep at night along with cyclobenzaprine. Most of the medications have dizziness as dose dependent side effect (2) Syncopal episodes: Status: Acute Assessment and plan: MRI brain and EEG did not show any abnormality Reassurance given Patient is waiting for placement
[2025-04-27] VITALS (13 sets, daily range): BP systolic 80–199; BP diastolic 60–141; PULSE 87–132; RESP 13–18; TEMP 36–36.2; O2SAT 95–100; BMI 21.0
[2025-04-27] MEDS: INSULIN LISPRO (AdmeLOG) 1 UNIT/0.01 ML UNIT SC ×4 (07:56→20:43)
[2025-04-27 08:31] LABS: Basophils # (Auto) 0.0 Thou/mm3 (0.0-0.2); Basophils % (Auto) 1 % (0-2.5); Eosinophils # (Auto) 0.1 Thou/mm3 (0.0-0.5); Eosinophils % (Auto) 2 % (0-10); Hematocrit 36.0 % (36.0-46.0); Hemoglobin 12.7 g/dL (12.0-16.0); Immature Granulocytes Auto 0.03 Thou/mm3 (0.00-0.00); Lymphocytes # (Auto) 0.9 Thou/mm3 (1.0-4.8); Lymphocytes % (Auto) 25 % (10-50); Mean Corpuscular HGB Conc 35.3 g/dl (31.0-37.0); Mean Corpuscular Hemoglobin 37.1 pg (25.0-35.0); Mean Corpuscular Volume 105 fL (80-100); Monocytes # (Auto) 0.4 Thou/mm3 (0.0-0.8); Monocytes % (Auto) 10 % (0-12); Neutrophils # (Auto) 2.3 Thou/mm3 (1.8-7.7); Neutrophils % (Auto) 62 % (37-80); Nucleated Red Blood Cell # 0.00 Thou/mm3 (0.00-0.00); Nucleated Red Blood Cell % 0 /100 WBC (0); Platelet Count 149 Thou/mm3 (140-440); RDW Standard Deviation 55.8 fL (36.4-46.3); Red Blood Count 3.42 Miln/mm3 (4.00-5.20); White Blood Count 3.7 Thou/mm3 (3.6-11.0)
--- NOTE | 2025-04-27 08:35 | ESPR_ITS ---
<Statement entered by Júnior Kern MD - 04/27/25 16:10> Senior Resident Attestation: I supervised/discussed management plan with gallery intern physician Dr. Petty, and was involved in the care of this patient. I personally saw and examined the patient and discussed the assessment and plan with the entire medicine team, including my attending. I agree with the assessment and plan as documented. Patient's care was discussed with attending physician, Dr. Najera. Júnior Kern MD PGY-3. Documentation for date of: 04/27/25 Subjective Subjective Interval history: NAEO. VSS. Patient evaluated at bedside. Denies dizziness but does note lightheadedness. She was sleepy and did not want to answer questions. Exam Vital Signs Temp Pulse Resp BP Pulse Ox O2 Del Method 97.2 F 90 16 125/81 95 Room Air 04/27/25 04:00 04/27/25 04:00 04/27/25 04:00 04/27/25 04:00 04/27/25 04:00 04/27/25 04:00 Narrative Exam General: Awake and in no acute distress. Conversational and non-toxic appearing. HEENT: Normocephalic, atraumatic, mucous membranes moist. Heart: Regular rate and rhythm, no murmurs. Lungs: Clear to auscultation with no wheezing or crackles. Abdomen: Soft, nondistended, nontender. No guarding or rebound tenderness. Neurologic: Alert and oriented x3, no gross neurological deficit, and patient able to move all 4 extremities. Extremities: No edema. Skin: No rash or ecchymoses. Objective Labs 04/28/25 04:26 04/28/25 04:26 Quality Measures Quality Measures VTE prophylaxis Assessment & Plan Assessment Current Active Medications: Generic Name Dose Route Start Last Admin Trade Name Freq PRN Reason Stop Dose Admin Acetaminophen 650 mg 04/24/25 11:08 Acetaminophen 325 Mg Tablet PO 05/22/25 23:28 Q6H PRN Fever >100.4 or pain 1-3 Protocol Amlodipine Besylate 10 mg 04/25/25 09:00 04/26/25 08:27 Amlodipine Besylate 5 Mg Tablet PO 05/25/25 08:59 10 mg QDAY GRABIEL Administration Cyclobenzaprine HCl 10 mg 04/24/25 16:15 04/26/25 08:27 Cyclobenzaprine 5 Mg Tablet PO 05/24/25 16:14 10 mg DAILY GRABIEL Administration Dextrose 25 ml 04/22/25 23:34 Dextrose 50%-Water Inj 50 Ml Syringe IV 05/22/25 23:33 Q15MIN PRN BG 50-70 responsive npo pt Dextrose 50 ml 04/22/25 23:34 Dextrose 50%-Water Inj 50 Ml Syringe IV 05/22/25 23:33 Q15MIN PRN BG <50 OR BG <70 & pt unresponsive Diazepam 5 mg 04/23/25 02:08 Diazepam Inj 5 Mg/Ml Vial 2 Ml IVP 04/28/25 02:07 Q2HR PRN CIWA SCORE 16-19 Enoxaparin Sodium 40 mg 04/23/25 09:00 04/26/25 08:27 Enoxaparin Sod Inj 40 Mg/0.4 Ml Syringe SC 05/07/25 08:59 40 mg QDAY GRABIEL Administration Folic Acid 1 mg 04/23/25 09:00 04/26/25 08:27 Folic Acid 1 Mg Tablet PO 05/23/25 08:59 1 mg QDAY GRABIEL Administration Glucagon 1 mg 04/22/25 23:34 Glucagon Inj 1 Mg Vial IM Q15MIN PRN BG <70, and no IV access Hydralazine HCl 10 mg 04/24/25 16:12 04/24/25 16:29 Hydralazine Inj 20 Mg/Ml Vial IVP 05/24/25 16:14 10 mg Q6H PRN Administration SBP > 180, hold if SBP < 140 Sodium Chloride 1,000 mls @ 75 mls/hr 04/23/25 11:45 04/26/25 20:07 Ns IV 05/23/25 11:44 75 mls/hr .[id number] GRABIEL Administration Insulin Human Lispro 0 unit 04/26/25 21:45 04/27/25 07:56 Insulin Lispro (Admelog) 1 Unit/0.01 Ml Unit SC 05/26/25 21:44 1 unit ACHS GRABIEL Administration Protocol Lorazepam 2 mg 04/23/25 02:12 Lorazepam 0.5 Mg Tablet PO 04/28/25 02:11 Q4HR PRN CIWA SCORE 12-15 Lorazepam 1 mg 04/23/25 02:12 04/26/25 20:18 Lorazepam 0.5 Mg Tablet PO 04/28/25 02:11 1 mg Q4HR PRN Administration CIWA SCORE 8-11 Losartan Potassium 100 mg 04/23/25 17:45 04/26/25 08:27 Losartan Potassium 25 Mg Tablet PO 05/23/25 17:44 100 mg QDAY GRABIEL Administration Meclizine HCl 25 mg 04/25/25 10:01 04/25/25 10:05 Meclizine Hcl 25 Mg Tablet PO 05/25/25 10:00 25 mg X1 PRN Administration DIZZINESS Ondansetron HCl 4 mg 04/22/25 23:29 04/25/25 20:46 Ondansetron Inj 2 Mg/Ml Inj 2 Ml IVP 05/22/25 23:28 4 mg Q6H PRN Administration NAUSEA OR VOMITING Protocol Oxycodone/Acetaminophen 1 tab 04/25/25 10:11 04/26/25 20:17 Oxycodone/Apap 5/325 Tablet PO 04/30/25 10:10 1 tab Q6HR PRN Administration PAIN 4-10 Quetiapine Fumarate 100 mg 04/25/25 21:00 04/26/25 20:18 Quetiapine Fumarate 100 Mg Tablet PO 05/25/25 20:59 100 mg HS GRABIEL Administration Thiamine HCl 100 mg 04/23/25 09:00 04/26/25 09:27 Thiamine 100 Mg Tablet PO 05/23/25 08:59 100 mg QDAY GRABIEL Administration Plan 44 year-old female with past medical history significant for alcohol use disorder, diabetes, Crohn's disease, polycythemia, hypertension, and hemochromatosis presents for recurrent syncope over the past few weeks, admitted for workup of syncope. #Vertigo Likely multifactorial. Differential includes: vasovagal: consistent with prodromal symptoms of flushing and visual changes vs arrhythmogenic: potential contribution from severe hypokalemia, beta-laci use (atenolol), alcohol use, or underlying cardiomyopathy (e.g., hemochromatosis-related) vs orthostatic hypotension: possible contributor, given history of diabetes, alcohol use, and antihypertensive medications. Head CT, CXR, EKG unremarkable. QTc 507 TTE: LVEF 55-60%. Mild LVH. Normal LV size and function. K 2.3, repleted. Urine toxicology positive for THC. Orthostatic vitals negative. MRI of brain (04/25): Punctate focus increased signal left frontal white matter, demyelinating disease pattern. Neuro reported nothing to do for demyelinating pattern at this time Plan - Daily BMP to track electrolyte trends. - Continue Meclizine PRN. - EEG showed no seizure activity. - MRI brain revealed a punctate focus of increased signal in the left frontal white matter, with no evidence of tumor or stroke. - Neurology consulted - appreciate recs. Nortriptyline or Abilify for pain management. #Prolonged QT QTc 507 Plan: - Avoid QT prolonging medications #Hypertensive urgency (resolved) Highest BP was 191/115. IV hydralazine 10mg given. BP improved to 164/110. Plan: - Hold atenolol for now. May be contributing to dizziness/syncope. - Continue home losartan 100mg daily. - Continue Amlodipine 10 mg daily. - IV hydralazine 10 mg Q6H PRN SBP > 180, hold if SBP < 140. #Severe Hypokalemia (resolved) Potassium 2.3 on admission. Patient has a longstanding history of hypokalemia, previously requiring emergency department repletion but never hospitalized for it. Current episode is likely multifactorial, with contributing factors including: poor nutritional intake and/or malabsorption secondary to Crohn?s disease vs chronic alcohol use may lead to renal potassium wasting and poor intake vs Jardiance use which may cause volume depletion and renal potassium losses. Plan: - Monitor daily potassium. - Replete as needed. - Check magnesium level, as hypomagnesemia can impair potassium repletion. - Monitor for arrhythmias given initial critically low value. #Diabetes Mellitus, [id number] Hemoglobin A1c 8.7. Plan - Hold home Jaridiance. - ISS, adjust as needed. #Subclinical hypothyroidism TSH mildy elevated at 5.6. Free T4 normal at 1.19. Patient is currently asymptomatic. Plan: - No immediate treatment indicated as patient is asymptomatic and Free T4 is normal. - Recommend outpatient follow-up for anti-thyroid peroxidase (anti-TPO) antibodies to assess for autoimmune thyroiditis with history of Crohn's disease. #Alcohol abuse disorder Patient drinks half pint of alcohol daily for over a year. Last alcoholic drink was 04/22 around 1-2pm. Alcohol level 68 on admission. No symptoms of alcohol withdrawal present currently. AST 45, ALT 29, ALP 78. Plan - CIWA protocol, currently CIWA 4. - Thiamine and folate given. - Monitor for withdrawal symptoms (tremors, diaphoresis, agitation, anxiety, hallucination, tachycardia, hypertension). - Correct hypokalemia, hypomagesemia, and hypophosphatemia as all can lower seizure threshold. - Seizure precautions. #Hemochromatosis Diagnosed about 2 years ago according to patient. At risk for restrictive cardiomyopathy and arrhythmia. Cardiac involvement is a particular concern in this patient given the history of syncopal episodes. Ferritin 85, Iron 155, TIBC 267, Iron sat 58. Echo (04/22): Mild LVH, Normal LV size and function. EF estimated 55-60%. Mild KS and Mild TR. Plan: - Ferritin within normal range. Absence of increase ferritin suggests that significant iron overload and organ damage unlikely at this time. #Polycythemia Hemoglobin 13.9, hematocrit 39.8 Platelet 158. Plan: - May consider serum viscosity test as hyperviscosity symptoms include dizziness and visual changes. #Crohn's Disease Currently no flare symptoms. GI specialist in [place]. Plan: - Monitor for anemia or electrolyte abnormalities if diarrhea develops. #Fibromyalgia Plan: - Percocet as needed for pain. #Lumbar spinal stenosis Lumbar spine CT (04/23): L5-S1 5 mm central lumbar disc bulge contiguous with the right and left S1 nerve roots. Plan: - Percocet as needed for pain #Insomnia Plan: - Quetiapine 100mg QHS. Health Maintenance: DVT prophylaxis: Lovenox GI prophylaxis: None Diet: Carb consistent/cardiac Lines: Peripheral IV Code status: Full code Plan discussed with Dr. Kern and Dr. Reinaldo Petty MD PGY1 Attending Provider Attestation/Addendum I Giovanni Najera MD reviewed the note and agree with the resident's assessment & plan with modifications/additions/exceptions as below. I have personally reviewed labs, imaging, home meds/prior records, examined the patient, formulated and discussed management plan with the IM team. Patient with complicated medical history including HTN, DM, EtOH use, unspecified psychiatry diagnosis, reported hemochromatosis/Crohn disease/polycythemia vera presented and admitted for recurrent syncopal episodes. Further workup did reveal concerns for demyelinating disorder on MRI brain however neurology evaluated and ruled out demyelinating disorder. Patient also noted to have prolonged QTc and hypokalemia. Aggressive electrolyte replacement with target potassium 4-4.5, daily EKG for QT measurement, resume hypertension medications. Continuous telemetry monitoring resume hypertension medications. Patient has echocardiogram without any significant abnormality. On interview, patient burst into tears as she has been passing out frequently without any identified diagnosis. Obtain US carotid bilateral, orthostatic vitals, consult cardiology regarding outpatient follow-up upon discharge for QTc monitoring and Holter monitor placement for evaluation of recurrent syncopal episodes. Neurology is on board will appreciate further input.
[2025-04-27] MEDS: ENOXAPARIN SOD INJ 40 MG/0.4 ML SYRINGE SC (08:41)
[2025-04-27] MEDS: LOSARTAN POTASSIUM 25 MG TABLET 100 MG PO (08:42)
[2025-04-27] MEDS: THIAMINE 100 MG TABLET PO (08:42)
[2025-04-27] MEDS: FOLIC ACID 1 MG TABLET PO (08:43)
[2025-04-27 08:45] LABS: Alanine Aminotransferase 42 U/L (10-49); Albumin, Serum 3.6 gm/dL (3.5-5.0); Albumin/Globulin Ratio 1.7 (1.2-2.2); Alkaline Phosphatase 90 U/L (46-116); Anion Gap 11 (7-16); Aspartate Amino Transferase 68 U/L (0-34); BUN/Creatinine Ratio 8 Ratio (12-20); Bilirubin,Total 0.7 mg/dL (0.3-1.2); Blood Urea Nitrogen < 5 mg/dL (9-23); Calcium 9.4 mg/dL (8.3-10.6); Calcium (Corrected) 9.7 mg/dL (8.5-10.1); Carbon Dioxide 26.4 mMol/L (20.0-31.0); Chloride 103 mMol/L (98-107); Creatinine (Component) 0.6 mg/dL (0.6-1.3); Estimated Creatinine Clearance 109.7 mL/min (>60); Globulin 2.1 gm/dL (2.3-3.5); Glucose 175 mg/dL (74-106); Magnesium 1.2 mg/dL (1.6-2.6); Osmolality,Calculated 280 (275-295); Phosphorous 3.2 mg/dL (2.4-5.1); Potassium 3.0 mMol/L (3.4-5.1); Sodium 140 mMol/L (136-145); Total Protein 5.7 gm/dL (5.7-8.2); eGFR > 60 See Note
[2025-04-27] MEDS: SODIUM CHLORIDE 0.9% 1000 ML 1,000 ML 75 ML IV (09:54)
--- NOTE | 2025-04-27 10:33 | EKG_ITS ---
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
[2025-04-27] MEDS: Magnesium Sulfate 4 GM Ivpb 4 GM/50 ML BAG IV (11:02)
--- NOTE | 2025-04-27 11:31 | PC.SS ---
[facility] [phone] contacted, PAS Level 2 case will be closed due to no SMI. Per Charlene, case will be closed and status to reflect online within an hour, 1230. SS contacted [facility] to confirm if auth. has been obtained, pending response.
[2025-04-27] MEDS: POTASSIUM CHL 10 mEq IVPB 10 MEQ/100 ML BAG 100 MEQ IV ×2 (14:07→17:06)
[2025-04-27] MEDS: hydrALAZINE INJ 20 MG/ML VIAL 10 MG IVP (16:16)
--- NOTE | 2025-04-27 16:31 | XR_ITS ---
Examination: AP chest single view TECHNIQUE: AP portable upright chest single view Date and time: April 27, 2025, 1645 hours, comparison April 22, 2025. INDICATIONS: Shortness of breath chest pain today. FINDINGS: Normal heart size. Lungs are clear. The osseous structures are intact. IMPRESSION: No active disease.
[2025-04-27] MEDS: LABETALOL INJ 5 MG/ML VIAL 20 ML 10 MG IVP (16:38)
[2025-04-27] MEDS: NITROGLYCERIN 0.4 MG SUBL BTL #25 SL (16:41)
--- NOTE | 2025-04-27 16:49 | PD.RESEVENT ---
Documentation for date of: 04/27/25 Event Note Event Note: Rapid response was called for chest pain/tightness that radiated to the jaw and HTN 196/1229. VHR 129, spO2 100% RA. BG 199. Patient was given Hydralazine 10 mg IV x1 and Ativan 1 mg PO prior to rapid. Ordered BMP, pro-BNP, EKG, troponin, lactic acid. Labetalol 10 mg IV x1 and sublingual nitroglycerin given. Repeat BP 136/102. Chest pain did not resolve with nitro. She notes that the pain does not radiate to her arms, back, or abdomen. Denies acid reflux. EKG showed sinus tachycardia HR 101, QTc 489. No ST elevation. CXR unremarkable. Lactic acid 1. General: Anxious, well nourished Eye: PERRL, EOMI, normal conjunctiva, no scleral icterus HENT: Normocephalic, atraumatic, normal hearing, moist oral mucosa Neck: Supple, non-tender, no JVD, no lymphadenopathy Lungs: Clear to auscultation bilaterally, non-labored respirations, symmetric chest rise, no use of accessory muscles Heart: Normal S1 and S2, no S3 or S4 appreciated. Tachycardic, no murmurs, rubs gallops, or edema. Peripheral pulses intact bilaterally, capillary refill brisk distally. No LE edema appreciated. Abdomen: Soft, non-tender, non-distended, normal bowel sounds. No guarding or rebound tenderness. Musculoskeletal: Normal range of motion and strength, no tenderness or swelling. Skin: Skin is warm, dry, no rashes or lesions. Neurologic: Alert, awake and oriented x3. CN II-XII grossly intact. No focal neuro deficits. No signs of meningeal irritation noted. Plan discussed with Dr. Kern and Dr. Fern Petty MD PGY1
[2025-04-27 16:55] LABS: Lactate (Lactic Acid) 1.0 mMol/L (0.4-2.0)
[2025-04-27 17:30] LABS: Anion Gap 10 (7-16); B-Type Natriuretic Peptide 58 pg/mL (0-100); BUN/Creatinine Ratio 8 Ratio (12-20); Blood Urea Nitrogen 5 mg/dL (9-23); Calcium 10.6 mg/dL (8.3-10.6); Carbon Dioxide 26.6 mMol/L (20.0-31.0); Chloride 99 mMol/L (98-107); Creatinine (Component) 0.6 mg/dL (0.6-1.3); Estimated Creatinine Clearance 109.7 mL/min (>60); Glucose 201 mg/dL (74-106); Osmolality,Calculated 275 (275-295); Potassium 3.3 mMol/L (3.4-5.1); Sodium 136 mMol/L (136-145); Troponin I < 0.020 ng/mL (0.0-0.045); eGFR > 60 See Note
[2025-04-28] VITALS (11 sets, daily range): BP systolic 142–157; BP diastolic 86–107; PULSE 86–109; RESP 16–18; TEMP 36.1–36.2; O2SAT 95–100; BMI 21.0; BMI 15.0
[2025-04-28 06:23] LABS: Basophils # (Auto) 0.0 Thou/mm3 (0.0-0.2); Basophils % (Auto) 1 % (0-2.5); Eosinophils # (Auto) 0.1 Thou/mm3 (0.0-0.5); Eosinophils % (Auto) 2 % (0-10); Hematocrit 35.7 % (36.0-46.0); Hemoglobin 12.4 g/dL (12.0-16.0); Immature Granulocytes Auto 0.02 Thou/mm3 (0.00-0.00); Lymphocytes # (Auto) 1.0 Thou/mm3 (1.0-4.8); Lymphocytes % (Auto) 28 % (10-50); Mean Corpuscular HGB Conc 34.7 g/dl (31.0-37.0); Mean Corpuscular Hemoglobin 36.6 pg (25.0-35.0); Mean Corpuscular Volume 105 fL (80-100); Monocytes # (Auto) 0.4 Thou/mm3 (0.0-0.8); Monocytes % (Auto) 10 % (0-12); Neutrophils # (Auto) 2.2 Thou/mm3 (1.8-7.7); Neutrophils % (Auto) 59 % (37-80); Nucleated Red Blood Cell # 0.00 Thou/mm3 (0.00-0.00); Nucleated Red Blood Cell % 0 /100 WBC (0); Platelet Count 140 Thou/mm3 (140-440); RDW Standard Deviation 55.5 fL (36.4-46.3); Red Blood Count 3.39 Miln/mm3 (4.00-5.20); White Blood Count 3.7 Thou/mm3 (3.6-11.0)
[2025-04-28 07:09] LABS: Alanine Aminotransferase 37 U/L (10-49); Albumin, Serum 3.6 gm/dL (3.5-5.0); Albumin/Globulin Ratio 1.9 (1.2-2.2); Alkaline Phosphatase 81 U/L (46-116); Anion Gap 11 (7-16); Aspartate Amino Transferase 57 U/L (0-34); BUN/Creatinine Ratio 10 Ratio (12-20); Bilirubin,Total 0.7 mg/dL (0.3-1.2); Blood Urea Nitrogen 6 mg/dL (9-23); Calcium 9.5 mg/dL (8.3-10.6); Calcium (Corrected) 9.8 mg/dL (8.5-10.1); Carbon Dioxide 26.0 mMol/L (20.0-31.0); Chloride 103 mMol/L (98-107); Creatinine (Component) 0.6 mg/dL (0.6-1.3); Estimated Creatinine Clearance 109.7 mL/min (>60); Globulin 1.9 gm/dL (2.3-3.5); Glucose 176 mg/dL (74-106); Magnesium 1.5 mg/dL (1.6-2.6); Osmolality,Calculated 281 (275-295); Phosphorous 3.2 mg/dL (2.4-5.1); Potassium 2.8 mMol/L (3.4-5.1); Sodium 140 mMol/L (136-145); Total Protein 5.5 gm/dL (5.7-8.2); eGFR > 60 See Note
[2025-04-28] MEDS: ENOXAPARIN SOD INJ 40 MG/0.4 ML SYRINGE SC (08:09)
[2025-04-28] MEDS: LOSARTAN POTASSIUM 25 MG TABLET 100 MG PO (08:09)
[2025-04-28] MEDS: INSULIN LISPRO (AdmeLOG) 1 UNIT/0.01 ML UNIT SC ×4 (08:09→21:12)
[2025-04-28] MEDS: THIAMINE 100 MG TABLET PO (08:10)
[2025-04-28] MEDS: FOLIC ACID 1 MG TABLET PO (08:10)
--- NOTE | 2025-04-28 11:29 | EKG_ITS ---
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
[2025-04-28] MEDS: POTASSIUM CHL 10 mEq IVPB 10 MEQ/100 ML BAG 50 MEQ IV ×2 (12:02→17:00)
[2025-04-28] MEDS: POTASSIUM CHL 10 mEq IVPB 10 MEQ/100 ML BAG 75 MEQ IV (14:50)
--- NOTE | 2025-04-28 15:17 | ESPR_ITS ---
<Statement entered by Júnior Kern MD - 04/28/25 15:49> Senior Resident Attestation: I supervised/discussed management plan with internal security manager physician Dr. Pat, and was involved in the care of this patient. I personally saw and examined the patient and discussed the assessment and plan with the entire medicine team, including my attending. I agree with the assessment and plan as documented. Patient remains very upset and is constantly crying. Her blood pressure is improved but still elevated. She was started on clonidine yesterday. Cardiology was consulted due to multiple EKGs showing prolonged QTc. Patient's care was discussed with attending physician, Dr. Najera. Júnior Kern MD PGY-3. Documentation for date of: 04/28/25 Subjective Subjective Interval history: Patient was evaluated at the bedside this morning. No overnight events reported. She reports continued dizziness, headache, and lower back pain, with Percocet providing relief. Her last four EKGs have shown QTc prolongation. Starting citalopram today, while closely monitoring for further QTc prolongation, given the patient is also receives Quetiapine and Zofran PRN, both of which can contribute to QTc prolongation. If the QTc exceeds 500 ms, citalopram will be discontinued. Cardiology was consulted. Exam Vital Signs Temp Pulse Resp BP Pulse Ox O2 Del Method 97.0 F 109 H 16 142/95 H 96 Room Air 04/28/25 12:00 04/28/25 12:56 04/28/25 12:00 04/28/25 12:00 04/28/25 12:00 04/28/25 12:00 Narrative Exam Physical Exam General: Awake and in no acute distress. Conversational and non-toxic appearing. HEENT: Normocephalic, atraumatic, mucous membranes moist. Heart: Regular rate and rhythm, no murmurs. Lungs: Clear to auscultation with no wheezing or crackles. Abdomen: Soft, nondistended, nontender. No guarding or rebound tenderness. Neurologic: Alert and oriented x3, no gross neurological deficit, and patient able to move all 4 extremities. Extremities: No edema. Skin: No rash or ecchymoses Objective Labs 04/28/25 04:26 04/28/25 04:26 Labs: Laboratory Results - last 24 hr 04/27/25 04/28/25 16:38 04:26 WBC 3.7 RBC 3.39 L Hgb 12.4 Hct 35.7 L MCV 105 H MCH 36.6 H MCHC 34.7 RDW Std Deviation 55.5 H Plt Count 140 Neut % (Auto) 59 Lymph % (Auto) 28 [place] % (Auto) 10 Eos % (Auto) 2 Baso % (Auto) 1 Neut # (Auto) 2.2 Lymph # (Auto) 1.0 [place] # (Auto) 0.4 Eos # (Auto) 0.1 Baso # (Auto) 0.0 Immature Gran # (Auto) 0.02 H Absolute Nucleated RBC 0.00 Immature Gran % 1 H Nucleated RBC % 0 Sodium 136 140 Potassium 3.3 L 2.8 L D Chloride 99 103 Carbon Dioxide 26.6 26.0 Anion Gap 10 11 BUN 5 L 6 L Creatinine 0.6 0.6 Estim Creat Clear Calc 109.7 109.7 eGFR > 60 > 60 BUN/Creatinine Ratio 8 L 10 L Glucose 201 H 176 H Calculated Osmolality 275 281 Lactic Acid 1.0 Calcium 10.6 9.5 Corrected Calcium 9.8 Phosphorus 3.2 Magnesium 1.5 L Total Bilirubin 0.7 AST 57 H ALT 37 Alkaline Phosphatase 81 Troponin I < 0.020 B-Natriuretic Peptide 58 Total Protein 5.5 L Albumin 3.6 Globulin 1.9 L Albumin/Globulin Ratio 1.9 Quality Measures Quality Measures VTE prophylaxis Assessment & Plan Assessment Current Active Medications: Generic Name Dose Route Start Last Admin Trade Name Freq PRN Reason Stop Dose Admin Acetaminophen 650 mg 04/24/25 11:08 Acetaminophen 325 Mg Tablet PO 05/22/25 23:28 Q6H PRN Fever >100.4 or pain 1-3 Protocol Amlodipine Besylate 10 mg 04/25/25 09:00 04/28/25 08:10 Amlodipine Besylate 5 Mg Tablet PO 05/25/25 08:59 10 mg QDAY GRABIEL Administration Clonidine 0.1 mg 04/27/25 18:30 04/28/25 08:10 Clonidine Hcl 0.1 Mg Tablet PO 05/27/25 18:29 0.1 mg BID GRABIEL Administration Cyclobenzaprine HCl 10 mg 04/24/25 16:15 04/28/25 08:10 Cyclobenzaprine 5 Mg Tablet PO 05/24/25 16:14 10 mg DAILY GRABIEL Administration Dextrose 25 ml 04/22/25 23:34 Dextrose 50%-Water Inj 50 Ml Syringe IV 05/22/25 23:33 Q15MIN PRN BG 50-70 responsive npo pt Dextrose 50 ml 04/22/25 23:34 Dextrose 50%-Water Inj 50 Ml Syringe IV 05/22/25 23:33 Q15MIN PRN BG <50 OR BG <70 & pt unresponsive Enoxaparin Sodium 40 mg 04/23/25 09:00 04/28/25 08:09 Enoxaparin Sod Inj 40 Mg/0.4 Ml Syringe SC 05/07/25 08:59 40 mg QDAY GRABIEL Administration Folic Acid 1 mg 04/23/25 09:00 04/28/25 08:10 Folic Acid 1 Mg Tablet PO 05/23/25 08:59 1 mg QDAY GRABIEL Administration Glucagon 1 mg 04/22/25 23:34 Glucagon Inj 1 Mg Vial IM Q15MIN PRN BG <70, and no IV access Hydralazine HCl 10 mg 04/24/25 16:12 04/27/25 16:16 Hydralazine Inj 20 Mg/Ml Vial IVP 05/24/25 16:14 10 mg Q6H PRN Administration SBP > 180, hold if SBP < 140 Insulin Human Lispro 0 unit 04/26/25 21:45 04/28/25 11:29 Insulin Lispro (Admelog) 1 Unit/0.01 Ml Unit SC 05/26/25 21:44 3 unit ACHS GRABIEL Administration Protocol Losartan Potassium 100 mg 04/23/25 17:45 04/28/25 08:09 Losartan Potassium 25 Mg Tablet PO 05/23/25 17:44 100 mg QDAY GRABIEL Administration Meclizine HCl 25 mg 04/25/25 10:01 04/25/25 10:05 Meclizine Hcl 25 Mg Tablet PO 05/25/25 10:00 25 mg X1 PRN Administration DIZZINESS Ondansetron HCl 4 mg 04/22/25 23:29 04/25/25 20:46 Ondansetron Inj 2 Mg/Ml Inj 2 Ml IVP 05/22/25 23:28 4 mg Q6H PRN Administration NAUSEA OR VOMITING Protocol Oxycodone/Acetaminophen 1 tab 04/25/25 10:11 04/28/25 08:08 Oxycodone/Apap 5/325 Tablet PO 04/30/25 10:10 1 tab Q6HR PRN Administration PAIN 4-10 Quetiapine Fumarate 100 mg 04/25/25 21:00 04/27/25 20:44 Quetiapine Fumarate 100 Mg Tablet PO 05/25/25 20:59 100 mg HS GRABIEL Administration Thiamine HCl 100 mg 04/23/25 09:00 04/28/25 08:10 Thiamine 100 Mg Tablet PO 05/23/25 08:59 100 mg QDAY GRABIEL Administration Plan 44 year-old female with past medical history significant for alcohol use disorder, diabetes, Crohn's disease, polycythemia, hypertension, and hemochromatosis presents for recurrent syncope over the past few weeks, admitted for workup of syncope. #Vertigo Likely multifactorial. Differential includes: vasovagal: consistent with prodromal symptoms of flushing and visual changes vs arrhythmogenic: potential contribution from severe hypokalemia, beta-laci use (atenolol), alcohol use, or underlying cardiomyopathy (e.g., hemochromatosis-related) vs orthostatic hypotension: possible contributor, given history of diabetes, alcohol use, and antihypertensive medications. Head CT, CXR, EKG unremarkable. QTc 507 TTE: LVEF 55-60%. Mild LVH. Normal LV size and function. Urine toxicology positive for THC. Orthostatic vitals negative. MRI of brain (04/25): Punctate focus increased signal left frontal white matter, demyelinating disease pattern. Neuro reported nothing to do for demyelinating pattern at this time Plan - Daily BMP to track electrolyte trends. - Continue Meclizine PRN. - EEG showed no seizure activity. - MRI brain revealed a punctate focus of increased signal in the left frontal white matter, with no evidence of tumor or stroke. - Neurology consulted - appreciate recs. Nortriptyline or Abilify for pain management. #Prolonged QT EKG QTc: 478 (04/22), 507 (04/25), 489 (04/27), 487 (04/28). Medication patient is on that can prolong QTc: Zofran, quetiapine. Plan: - Started citalopram 10mg. - Monitor QTc, if > 500 will discontinue citalopram. #Hypertensive urgency Highest BP was 191/115. IV hydralazine 10mg given. BP improved to 164/110. Rapid response on 04/27 for chest pain/tightness that radiated to the jaw and HTN 196/129 with HR 129. Treated with Labetalol 10 mg IV x1 and sublingual nitroglycerin given. Plan: - Hold atenolol for now. May be contributing to dizziness/syncope. - Continue home losartan 100mg daily. - Continue Amlodipine 10 mg daily. - Continue clonidine 0.1 mg PO BID. - IV hydralazine 10 mg Q6H PRN SBP > 180, hold if SBP < 140. #Severe Hypokalemia Potassium 2.3 on admission. Patient has a longstanding history of hypokalemia, previously requiring emergency department repletion but never hospitalized for it. Current episode is likely multifactorial, with contributing factors including: poor nutritional intake and/or malabsorption secondary to Crohn?s disease vs chronic alcohol use may lead to renal potassium wasting and poor intake vs Jardiance use which may cause volume depletion and renal potassium losses. Plan: - Monitor daily potassium. - Replete as needed. - Check magnesium level, as hypomagnesemia can impair potassium repletion. - Monitor for arrhythmias given initial critically low value. #Diabetes Mellitus, [id number] Hemoglobin A1c 8.7. Plan - Hold home Jaridiance. - ISS, adjust as needed. #Subclinical hypothyroidism TSH mildy elevated at 5.6. Free T4 normal at 1.19. Patient is currently asymptomatic. Plan: - No immediate treatment indicated as patient is asymptomatic and Free T4 is normal. - Recommend outpatient follow-up for anti-thyroid peroxidase (anti-TPO) antibodies to assess for autoimmune thyroiditis with history of Crohn's disease. #Alcohol abuse disorder Patient drinks half pint of alcohol daily for over a year. Last alcoholic drink was 04/22 around 1-2pm. Alcohol level 68 on admission. No symptoms of alcohol withdrawal present currently. AST 45, ALT 29, ALP 78. Plan - CIWA protocol, currently CIWA 1. - Thiamine and folate given. - Monitor for withdrawal symptoms (tremors, diaphoresis, agitation, anxiety, hallucination, tachycardia, hypertension). - Correct hypokalemia, hypomagesemia, and hypophosphatemia as all can lower seizure threshold. - Seizure precautions. #Hemochromatosis Diagnosed about 2 years ago according to patient. At risk for restrictive cardiomyopathy and arrhythmia. Cardiac involvement is a particular concern in this patient given the history of syncopal episodes. Ferritin 85, Iron 155, TIBC 267, Iron sat 58. Echo (04/22): Mild LVH, Normal LV size and function. EF estimated 55-60%. Mild ID and Mild TR. Plan: - Ferritin within normal range. Absence of increase ferritin suggests that significant iron overload and organ damage unlikely at this time. #Polycythemia Hemoglobin 13.9, hematocrit 39.8 Platelet 158. Plan: - May consider serum viscosity test as hyperviscosity symptoms include dizziness and visual changes. #Crohn's Disease Currently no flare symptoms. GI specialist in [place]. Plan: - Monitor for anemia or electrolyte abnormalities if diarrhea develops. #Fibromyalgia Plan: - Percocet as needed for pain. #Lumbar spinal stenosis Lumbar spine CT (04/23): L5-S1 5 mm central lumbar disc bulge contiguous with the right and left S1 nerve roots. Plan: - Percocet as needed for pain #Insomnia Plan: - Quetiapine 100mg QHS. Health Maintenance: DVT prophylaxis: Lovenox GI prophylaxis: None Diet: Carb consistent/cardiac Lines: Peripheral IV Code status: Full code Patient plan of care was discussed with the senior resident, Dr. Kern, and attending physician, . Adeola Pat, PGY-1 Attending Provider Attestation/Addendum I Giovanni Najera MD reviewed the note and agree with the resident's assessment & plan with modifications/additions/exceptions as below. I have personally reviewed labs, imaging, home meds/prior records, examined the patient, formulated and discussed management plan with the IM team. Patient with complicated medical history including HTN, DM, EtOH use, unspecified psychiatry diagnosis, reported hemochromatosis/Crohn disease/polycythemia vera presented and admitted for recurrent syncopal episodes. Further workup did reveal concerns for demyelinating disorder on MRI brain however neurology evaluated and ruled out demyelinating disorder. Patient also noted to have prolonged QTc and persistent hypokalemia. Aggressive electrolyte replacement with target potassium 4-4.5, daily EKG for QT measurement. Continuous telemetry monitoring resume hypertension medications. Patient has echocardiogram without any significant abnormality. Follow-up with US carotid bilateral, orthostatic vitals, consult cardiology regarding outpatient follow-up upon discharge for QTc monitoring and Holter monitor placement for evaluation of recurrent syncopal episodes. Overnight, patient has an episode with sudden atypical chest pain along with blood pressure reaching to 190s, troponin remained within normal limits with subsequent resolution of symptoms following administration of SLN, hydralazine and situation was labeled as panic attack. Will start citalopram 10 mg daily, monitor QTc with repeat EKG in the morning, will discontinue citalopram if QTc> 500 ms. Neurology is on board will appreciate further input.
[2025-04-28] MEDS: CITALOPRAM 20 MG TABLET 10 MG PO (16:59)
[2025-04-28] MEDS: ACETAMINOPHEN 325 MG TABLET 650 MG PO (17:11)
[2025-04-28] MEDS: Magnesium Sulfate 4 GM Ivpb 4 GM/50 ML BAG IV (18:08)
--- NOTE | 2025-04-28 23:56 | VVPN_ITS ---
Telemedicine visit statement This visit was conducted with the use of interactive audio and video telecommunications system that permits real time communication between the patient and the provider. Patient's verbal consent for virtual visit was obtained on 04/28/25 at 2356. Documentation for date of: 04/28/25 Subjective Subjective Interval history: [facility] continue to complain of headache and photosensitivity. Virtual exam Vital Signs Temp Pulse Resp BP Pulse Ox O2 Del Method 97.0 F 98 18 144/93 H 99 Room Air 04/28/25 20:00 04/28/25 21:10 04/28/25 20:00 04/28/25 21:10 04/28/25 20:00 04/28/25 20:00 Objective Labs 04/29/25 05:46 04/28/25 04:26 Labs: Laboratory Results - last 24 hr 04/28/25 04:26 WBC 3.7 RBC 3.39 L Hgb 12.4 Hct 35.7 L MCV 105 H MCH 36.6 H MCHC 34.7 RDW Std Deviation 55.5 H Plt Count 140 Neut % (Auto) 59 Lymph % (Auto) 28 [place] % (Auto) 10 Eos % (Auto) 2 Baso % (Auto) 1 Neut # (Auto) 2.2 Lymph # (Auto) 1.0 [place] # (Auto) 0.4 Eos # (Auto) 0.1 Baso # (Auto) 0.0 Immature Gran # (Auto) 0.02 H Absolute Nucleated RBC 0.00 Immature Gran % 1 H Nucleated RBC % 0 Sodium 140 Potassium 2.8 L D Chloride 103 Carbon Dioxide 26.0 Anion Gap 11 BUN 6 L Creatinine 0.6 Estim Creat Clear Calc 109.7 eGFR > 60 BUN/Creatinine Ratio 10 L Glucose 176 H Calculated Osmolality 281 Calcium 9.5 Corrected Calcium 9.8 Phosphorus 3.2 Magnesium 1.5 L Total Bilirubin 0.7 AST 57 H ALT 37 Alkaline Phosphatase 81 Total Protein 5.5 L Albumin 3.6 Globulin 1.9 L Albumin/Globulin Ratio 1.9 Assessment & Plan Problem List (1) Dizziness: Status: Acute Assessment and plan: Reassurance given to the patient regarding the negative workup. That she is on quetiapine 100 mg to help with the sleep at night along with cyclobenzaprine. Most of the medications have dizziness as dose dependent side effect (2) Syncopal episodes: Status: Acute Assessment and plan: MRI brain and EEG did not show any abnormality Reassurance given Patient is waiting for placement
[2025-04-29] VITALS (8 sets, daily range): BP systolic 109–154; BP diastolic 69–98; PULSE 73–91; RESP 15–17; TEMP 36.2–36.9; O2SAT 96–99; BMI 22.9; BMI 13.0
[2025-04-29 06:13] LABS: Basophils # (Auto) 0.0 Thou/mm3 (0.0-0.2); Basophils % (Auto) 1 % (0-2.5); Eosinophils # (Auto) 0.1 Thou/mm3 (0.0-0.5); Eosinophils % (Auto) 1 % (0-10); Hematocrit 36.9 % (36.0-46.0); Hemoglobin 13.1 g/dL (12.0-16.0); Immature Granulocytes Auto 0.03 Thou/mm3 (0.00-0.00); Lymphocytes # (Auto) 0.8 Thou/mm3 (1.0-4.8); Lymphocytes % (Auto) 20 % (10-50); Mean Corpuscular HGB Conc 35.5 g/dl (31.0-37.0); Mean Corpuscular Hemoglobin 37.2 pg (25.0-35.0); Mean Corpuscular Volume 105 fL (80-100); Monocytes # (Auto) 0.4 Thou/mm3 (0.0-0.8); Monocytes % (Auto) 10 % (0-12); Neutrophils # (Auto) 2.9 Thou/mm3 (1.8-7.7); Neutrophils % (Auto) 67 % (37-80); Nucleated Red Blood Cell # 0.00 Thou/mm3 (0.00-0.00); Nucleated Red Blood Cell % 0 /100 WBC (0); Platelet Count 150 Thou/mm3 (140-440); RDW Standard Deviation 55.8 fL (36.4-46.3); Red Blood Count 3.52 Miln/mm3 (4.00-5.20); White Blood Count 4.3 Thou/mm3 (3.6-11.0)
[2025-04-29 06:37] LABS: Alanine Aminotransferase 45 U/L (10-49); Albumin, Serum 3.7 gm/dL (3.5-5.0); Albumin/Globulin Ratio 1.5 (1.2-2.2); Alkaline Phosphatase 82 U/L (46-116); Anion Gap 10 (7-16); Aspartate Amino Transferase 78 U/L (0-34); BUN/Creatinine Ratio 13 Ratio (12-20); Bilirubin,Total 0.8 mg/dL (0.3-1.2); Blood Urea Nitrogen 8 mg/dL (9-23); Calcium 9.0 mg/dL (8.3-10.6); Calcium (Corrected) 9.2 mg/dL (8.5-10.1); Carbon Dioxide 24.3 mMol/L (20.0-31.0); Chloride 103 mMol/L (98-107); Creatinine (Component) 0.6 mg/dL (0.6-1.3); Estimated Creatinine Clearance 109.7 mL/min (>60); Globulin 2.4 gm/dL (2.3-3.5); Glucose 241 mg/dL (74-106); Magnesium 2.1 mg/dL (1.6-2.6); Osmolality,Calculated 280 (275-295); Phosphorous 2.9 mg/dL (2.4-5.1); Potassium 3.9 mMol/L (3.4-5.1); Sodium 137 mMol/L (136-145); Total Protein 6.1 gm/dL (5.7-8.2); eGFR > 60 See Note
[2025-04-29] MEDS: INSULIN LISPRO (AdmeLOG) 1 UNIT/0.01 ML UNIT SC ×3 (07:56→18:06)
[2025-04-29] MEDS: ENOXAPARIN SOD INJ 40 MG/0.4 ML SYRINGE SC (09:20)
[2025-04-29] MEDS: CITALOPRAM 20 MG TABLET 10 MG PO (09:21)
[2025-04-29] MEDS: LOSARTAN POTASSIUM 25 MG TABLET 100 MG PO (09:21)
[2025-04-29] MEDS: FOLIC ACID 1 MG TABLET PO (09:21)
[2025-04-29] MEDS: THIAMINE 100 MG TABLET PO (09:21)
--- NOTE | 2025-04-29 09:49 | PD.IMCONS ---
HPI Data of Consult Requesting Physician: Kermit Feldman MD Primary Care Provider: Myron Emmanuel MD Consult Narrative History of present illness: This is a 44 y/o F with PMHx significant for alcohol abuse, fibromyalgia, diabetes, Crohn's disease, polycythemia, hypertension, hemochromatosis, palpitations presents with chief complaints of multiple syncopal episodes over the past few weeks. Patient states that episodes are typically preceded by a feeling of hot/cold rash throughout the body and bright lights. cardiology consulted for prolonged QTc 480 pt had low K+ no arrhythmias noted cc:: cc: Kermit Feldman MD Meds Home Medications and Allergies Home Medications ?Medication ?Instructions ?Recorded ?Confirmed ?Type atenolol 50 mg tablet 50 mg PO DAILY 04/23/25 04/23/25 History atorvastatin 10 mg tablet 10 mg PO HS 04/23/25 04/23/25 History cyclobenzaprine 10 mg tablet 10 mg PO DAILY 04/23/25 04/23/25 History empagliflozin 25 mg tablet 25 mg PO DAILY 04/23/25 04/23/25 History (Jardiance) losartan 100 mg tablet 100 mg PO DAILY 04/23/25 04/23/25 History oxycodone-acetaminophen 5 mg-325 1 tab PO Q6H PRN pain 04/23/25 04/23/25 History mg tablet quetiapine 100 mg tablet 100 mg PO DAILY 04/23/25 04/23/25 History Allergies Allergy/AdvReac Type Severity Reaction Status Date / Time [place] And Derivatives Allergy Severe Sores in Verified 04/27/25 22:36 mouth droperidol Allergy Intermediate Hives Verified 04/27/25 22:36 latex Allergy Mild REDNESS,ITCHING Verified 04/27/25 22:36 W/CONDOM USE ONLY Exam Vital Signs Temp Pulse Resp BP Pulse Ox O2 Del Method 97.2 F 82 16 129/85 H 96 Room Air 04/29/25 08:00 04/29/25 09:21 04/29/25 08:00 04/29/25 09:21 04/29/25 08:00 04/29/25 08:00 Routine HEENT Exam Head: Present normocephalic and atraumatic Eye: Present EOMI and PERRL ENT: Present mucous membranes moist Routine Neck Exam Neck: Present supple and trachea midline Routine Respiratory Exam Respiratory: Present chest non-tender, lungs clear, normal breath sounds and no resp distress Routine Cardiovascular Exam Cardiovascular: Present RRR Routine Abdominal Exam Abdominal: Present soft and normoactive bowel sounds Routine Extremities Exam Extremities: Present full ROM Routine Skin Exam Skin: Present intact, dry and warm Routine Neurological Exam Neurological: Present alert, oriented X3 and CN II-XII intact Routine Psychiatric Exam Psychiatric: Present normal affect and normal thought process Results Labs 04/29/25 05:46 04/29/25 05:46 Labs: Short CBC 04/29/25 Range/Units 05:46 WBC 4.3 (3.6-11.0) Thou/mm3 Hgb 13.1 (12.0-16.0) g/dL Hct 36.9 (36.0-46.0) % Plt Count 150 (140-440) Thou/mm3 BMP 04/29/25 05:46 Sodium 137 Potassium 3.9 D Chloride 103 Carbon Dioxide 24.3 BUN 8 L Creatinine 0.6 Glucose 241 H D Calcium 9.0 Liver Function 04/29/25 Range/Units 05:46 Total Bilirubin 0.8 (0.3-1.2) mg/dL AST 78 H (0-34) U/L ALT 45 (10-49) U/L Alkaline Phosphatase 82 (46-116) U/L Albumin 3.7 (3.5-5.0) gm/dL Assessment and Plan Assessment and plan (1) Dizziness: Status: Acute (2) Hyperglycemia: Status: Acute (3) Lumbar spinal stenosis: Status: Acute (4) AMS (altered mental status): Status: Acute (5) QT prolongation: Status: Acute Additional Assessment & Plan Additional Plan: QT prolongation mostlikely due to electrolyte abnormalities correct K/ replace Mg stable hemodynamics no arrhythmias noted
--- NOTE | 2025-04-29 10:20 | PC.SS ---
SS follow up note; SS contacted Alanna from [facility] to check status on authorization, she informed SS that at the time auth was still pending and had followed up with [facility] to confirm and patient's clinicals were under review. At the time patient is not medically cleared and is pending Cardio Rec's.
[2025-04-29] MEDS: Magnesium Sulfate 2 GM Ivpb 2 GM/50 ML BAG IV (10:57)
--- NOTE | 2025-04-29 13:42 | CHAP ---
Patient was visited by a Spiritual Care Volunteer on 04/29/2025 between 0900 and 0955 and received comfort, encouragement and/or prayer.
--- NOTE | 2025-04-29 14:26 | PD.RESPRO ---
Documentation for date of: 04/29/25 Subjective Subjective Interval history: Patient was seen at the bedside this morning. No overnight events were reported. She continues to endorse symptoms of headache, low back pain, and dizziness/lightheadedness. She was able to participate in physical therapy yesterday without issue. Her last bowel movement was reported to be yesterday. Cardiology was consulted for QTc prolongation. Dr. Lopez assessment is that the prolonged QTc is likely secondary to electrolyte abnormalities, recommended maintaining potassium >4.0 and magnesium >2.0, which we have been actively managing. The patient remains on telemetry monitoring, with no arrhythmias observed to date. Pending [facility] authorization for discharge. Exam Vital Signs Temp Pulse Resp BP Pulse Ox O2 Del Method 98.2 F 91 15 142/91 H 98 Aerosol Mask 04/29/25 12:00 04/29/25 12:00 04/29/25 12:00 04/29/25 12:00 04/29/25 12:00 04/29/25 12:00 Narrative Exam Physical Exam General: Awake and in no acute distress. Conversational and non-toxic appearing. HEENT: Normocephalic, atraumatic, mucous membranes moist. Heart: Regular rate and rhythm, no murmurs. Lungs: Clear to auscultation with no wheezing or crackles. Abdomen: Soft, nondistended, nontender. No guarding or rebound tenderness. Neurologic: Alert and oriented x3, no gross neurological deficit, and patient able to move all 4 extremities. Extremities: No edema. Skin: No rash or ecchymoses. Objective Labs 04/29/25 05:46 04/29/25 05:46 Labs: Laboratory Results - last 24 hr 04/29/25 05:46 WBC 4.3 RBC 3.52 L Hgb 13.1 Hct 36.9 MCV 105 H MCH 37.2 H MCHC 35.5 RDW Std Deviation 55.8 H Plt Count 150 Neut % (Auto) 67 Lymph % (Auto) 20 [place] % (Auto) 10 Eos % (Auto) 1 Baso % (Auto) 1 Neut # (Auto) 2.9 Lymph # (Auto) 0.8 L [place] # (Auto) 0.4 Eos # (Auto) 0.1 Baso # (Auto) 0.0 Immature Gran # (Auto) 0.03 H Absolute Nucleated RBC 0.00 Immature Gran % 1 H Nucleated RBC % 0 Sodium 137 Potassium 3.9 D Chloride 103 Carbon Dioxide 24.3 Anion Gap 10 BUN 8 L Creatinine 0.6 Estim Creat Clear Calc 109.7 eGFR > 60 BUN/Creatinine Ratio 13 Glucose 241 H D Calculated Osmolality 280 Calcium 9.0 Corrected Calcium 9.2 Phosphorus 2.9 Magnesium 2.1 Total Bilirubin 0.8 AST 78 H ALT 45 Alkaline Phosphatase 82 Total Protein 6.1 Albumin 3.7 Globulin 2.4 Albumin/Globulin Ratio 1.5 Quality Measures Quality Measures VTE prophylaxis Assessment & Plan Assessment Current Active Medications: Generic Name Dose Route Start Last Admin Trade Name Freq PRN Reason Stop Dose Admin Acetaminophen 650 mg 04/24/25 11:08 04/28/25 17:11 Acetaminophen 325 Mg Tablet PO 05/22/25 23:28 650 mg Q6H PRN Administration Fever >100.4 or pain 1-3 Protocol Amlodipine Besylate 10 mg 04/25/25 09:00 04/29/25 09:20 Amlodipine Besylate 5 Mg Tablet PO 05/25/25 08:59 10 mg QDAY GRABIEL Administration Citalopram Hydrobromide 10 mg 04/28/25 16:00 04/29/25 09:21 Citalopram 20 Mg Tablet PO 05/28/25 15:59 10 mg QDAY GRABIEL Administration Clonidine 0.1 mg 04/27/25 18:30 04/29/25 09:18 Clonidine Hcl 0.1 Mg Tablet PO 05/27/25 18:29 0.1 mg BID GRABIEL Administration Cyclobenzaprine HCl 10 mg 04/29/25 10:55 Cyclobenzaprine 5 Mg Tablet PO 05/24/25 16:14 DAILY PRN back musculoskeletal pain Dextrose 25 ml 04/22/25 23:34 Dextrose 50%-Water Inj 50 Ml Syringe IV 05/22/25 23:33 Q15MIN PRN BG 50-70 responsive npo pt Dextrose 50 ml 04/22/25 23:34 Dextrose 50%-Water Inj 50 Ml Syringe IV 05/22/25 23:33 Q15MIN PRN BG <50 OR BG <70 & pt unresponsive Enoxaparin Sodium 40 mg 04/23/25 09:00 04/29/25 09:20 Enoxaparin Sod Inj 40 Mg/0.4 Ml Syringe SC 05/07/25 08:59 40 mg QDAY GRABIEL Administration Folic Acid 1 mg 04/23/25 09:00 04/29/25 09:21 Folic Acid 1 Mg Tablet PO 05/23/25 08:59 1 mg QDAY GRABIEL Administration Glucagon 1 mg 04/22/25 23:34 Glucagon Inj 1 Mg Vial IM Q15MIN PRN BG <70, and no IV access Hydralazine HCl 10 mg 04/24/25 16:12 04/27/25 16:16 Hydralazine Inj 20 Mg/Ml Vial IVP 05/24/25 16:14 10 mg Q6H PRN Administration SBP > 180, hold if SBP < 140 Insulin Human Lispro 0 unit 04/26/25 21:45 04/29/25 12:07 Insulin Lispro (Admelog) 1 Unit/0.01 Ml Unit SC 05/26/25 21:44 1 unit ACHS GRABIEL Administration Protocol Losartan Potassium 100 mg 04/23/25 17:45 04/29/25 09:21 Losartan Potassium 25 Mg Tablet PO 05/23/25 17:44 100 mg QDAY GRABIEL Administration Meclizine HCl 25 mg 04/25/25 10:01 04/25/25 10:05 Meclizine Hcl 25 Mg Tablet PO 05/25/25 10:00 25 mg X1 PRN Administration DIZZINESS Ondansetron HCl 4 mg 04/22/25 23:29 04/25/25 20:46 Ondansetron Inj 2 Mg/Ml Inj 2 Ml IVP 05/22/25 23:28 4 mg Q6H PRN Administration NAUSEA OR VOMITING Protocol Oxycodone/Acetaminophen 1 tab 04/25/25 10:11 04/29/25 09:29 Oxycodone/Apap 5/325 Tablet PO 04/30/25 10:10 1 tab Q6HR PRN Administration PAIN 4-10 Quetiapine Fumarate 100 mg 04/25/25 21:00 04/28/25 21:11 Quetiapine Fumarate 100 Mg Tablet PO 05/25/25 20:59 100 mg HS GRABIEL Administration Thiamine HCl 100 mg 04/23/25 09:00 04/29/25 09:21 Thiamine 100 Mg Tablet PO 05/23/25 08:59 100 mg QDAY GRABIEL Administration Plan 44 year-old female with past medical history significant for alcohol use disorder, diabetes, Crohn's disease, polycythemia, hypertension, and hemochromatosis presents for recurrent syncope over the past few weeks, admitted for workup of syncope. Patient remains on telemetry monitoring, with no arrhythmias observed to date. #Syncope (unknown cause) Updated DDX: anxiety related syncope vs polypharmacy. Likely multifactorial. Differential includes: vasovagal: consistent with prodromal symptoms of flushing and visual changes vs arrhythmogenic: potential contribution from severe hypokalemia, beta-laci use (atenolol), alcohol use, or underlying cardiomyopathy (e.g., hemochromatosis-related) vs orthostatic hypotension: possible contributor, given history of diabetes, alcohol use, and antihypertensive medications. Head CT, CXR, EKG unremarkable. QTc 507 TTE: LVEF 55-60%. Mild LVH. Normal LV size and function. Urine toxicology positive for THC. Orthostatic vitals negative. MRI of brain (04/25): Punctate focus increased signal left frontal white matter, demyelinating disease pattern. Neuro reported nothing to do for demyelinating pattern at this time Plan - Daily BMP to track electrolyte trends. - Continue Meclizine PRN. - EEG showed no seizure activity. - MRI brain revealed a punctate focus of increased signal in the left frontal white matter, with no evidence of tumor or stroke. - Neurology consulted - appreciate recs. Nortriptyline or Abilify for pain management. #Prolonged QT EKG QTc: 478 (04/22), 507 (04/25), 489 (04/27), 487 (04/28). Medication patient is on that can prolong QTc: Zofran, quetiapine. Plan: - Started citalopram 10mg. - Monitor QTc, if > 500 will discontinue citalopram. - Cardiology's assessment and recommendation: QT prolongation most likely due to electrolyte abnormalities. Replete K and Mg as needed. #Hypertensive urgency (resolved) Highest BP was 191/115. IV hydralazine 10mg given. BP improved to 164/110. Rapid response on 04/27 for chest pain/tightness that radiated to the jaw and HTN 196/129 with HR 129. Treated with Labetalol 10 mg IV x1 and sublingual nitroglycerin given. Plan: - Hold atenolol for now. May be contributing to dizziness/syncope. - Continue home losartan 100mg daily. - Continue Amlodipine 10 mg daily. - Continue Clonidine 0.1 mg PO BID. - IV hydralazine 10 mg Q6H PRN SBP > 180, hold if SBP < 140. #Severe Hypokalemia (resolved) Potassium 2.3 on admission. Patient has a longstanding history of hypokalemia, previously requiring emergency department repletion but never hospitalized for it. Current episode is likely multifactorial, with contributing factors including: poor nutritional intake and/or malabsorption secondary to Crohn?s disease vs chronic alcohol use may lead to renal potassium wasting and poor intake vs Jardiance use which may cause volume depletion and renal potassium losses. Plan: - Monitor daily potassium. - Replete as needed. - Check magnesium level, as hypomagnesemia can impair potassium repletion. - Monitor for arrhythmias given initial critically low value. #Diabetes Mellitus, [id number] Hemoglobin A1c 8.7. Plan - Hold home Jaridiance. - ISS, adjust as needed. - Changed diet to carb consistent low for better blood glucose control. #Subclinical hypothyroidism TSH mildy elevated at 5.6. Free T4 normal at 1.19. Patient is currently asymptomatic. Plan: - No immediate treatment indicated as patient is asymptomatic and Free T4 is normal. - Recommend outpatient follow-up for anti-thyroid peroxidase (anti-TPO) antibodies to assess for autoimmune thyroiditis with history of Crohn's disease. #Alcohol abuse disorder Patient drinks half pint of alcohol daily for over a year. Last alcoholic drink was 04/22 around 1-2pm. Alcohol level 68 on admission. No symptoms of alcohol withdrawal present currently. AST 45, ALT 29, ALP 78. Plan - CIWA protocol, currently CIWA 2. - Thiamine and folate given. - Monitor for withdrawal symptoms (tremors, diaphoresis, agitation, anxiety, hallucination, tachycardia, hypertension). - Correct hypokalemia, hypomagesemia, and hypophosphatemia as all can lower seizure threshold. - Seizure precautions. #Hemochromatosis Diagnosed about 2 years ago according to patient. At risk for restrictive cardiomyopathy and arrhythmia. Cardiac involvement is a particular concern in this patient given the history of syncopal episodes. Ferritin 85, Iron 155, TIBC 267, Iron sat 58. Echo (04/22): Mild LVH, Normal LV size and function. EF estimated 55-60%. Mild PA and Mild TR. Plan: - Ferritin within normal range. Absence of increase ferritin suggests that significant iron overload and organ damage unlikely at this time. - Negative echo. #Polycythemia Hemoglobin 13.9, hematocrit 39.8 Platelet 158. Plan: - May consider serum viscosity test as hyperviscosity symptoms include dizziness and visual changes. #Crohn's Disease Currently no flare symptoms. GI specialist in [place]. Plan: - Monitor for anemia or electrolyte abnormalities if diarrhea develops. #Fibromyalgia Plan: - Percocet as needed for pain. #Lumbar spinal stenosis Lumbar spine CT (04/23): L5-S1 5 mm central lumbar disc bulge contiguous with the right and left S1 nerve roots. Plan: - Percocet as needed for pain #Insomnia Plan: - Quetiapine 100mg QHS. Health Maintenance: DVT prophylaxis: Lovenox GI prophylaxis: None Diet: Carb consistent/cardiac Lines: Peripheral IV Code status: Full code Patient plan of care was discussed with the senior resident, Dr. Lazaro Melissa, and attending physician, Dr. Feldman. Adeola Pat, PGY-1
--- NOTE | 2025-04-29 15:33 | PC.SS ---
Addendum entered and electronically signed by NED Corcoran 04/29/25 17:21: [employer] received phone call from dispatch stating that transport has been pushed back to 18:30. [employer] notified community outreach director. Addendum entered by Nury Caruso 04/29/25 15:44: contacted [facility] to check status on transportation, at the time no transportation team was assigned. [facility]. Original Note: SS was contacted by Alanna from [facility] and informed SS that patient's auth was obtained. set up transportation through [facility] # [id number]. contacted Patient's nurse Trisha and informed her that SS was awaiting for transportation team to be assigned.
--- NOTE | 2025-04-29 15:36 | ESDS_ITS ---
<Statement entered by Kermit Feldman MD - 05/03/25 15:13> I reviewed above note and agree with findings and plans. I have also personally examined the patient with medicine team and went over assessment and plan with medical team including regulatory internship and resident physician. <Statement entered by Felipe Melissa MD - 04/30/25 07:31> Patient was examined and case was reviewed with team including attending physician. Note reviewed, I agree with most of its contents and agree with the patient's care. Felipe Melissa MD PGY-2 Planned Discharge Date 04/29/25 DS: Providers Provider Date of admission: 04/22/25 23:30 Primary care physician: Myron Emmanuel MD Admitting Provider: Yokasta Nichols MD Attending Provider on Admission: Kermit Feldman MD Consults: 04/22/25 23:29 Referral Physical Therapy Routine Comment: Physician Instructions: 04/24/25 10:12 Consult to Neurology / Tele-Neurology Stat Comment: Consulting Provider: Hardik Phillips 04/28/25 16:17 Consult to Cardiology Routine Comment: QTc prolongation Consulting Provider: Sravan Lopez Attending Provider on DC: Kermit Feldman MD Discharging Provider: Adeola Pat DO Anticipated date of discharge: 04/29/25 DS: Diagnosis Problem List Completed Was Problem List Reviewed/Reconciled?: Yes Hospital Course Hospital Course Hospital course: 44-year-old female with history of alcohol use disorder, hypertension, diabetes, fibromyalgia, Crohn?s disease, reported polycythemia and hemochromatosis was admitted on 04/23 for evaluation of recurrent syncopal/near-syncopal episodes. On presentation, she was found to have severe hypokalemia, which was aggressively repleted. Head CT, CXR, and EKG were unremarkable, and telemetry monitoring was initiated. Orthostatic vitals were negative. Neurology was consulted for dizziness and recurrent episodes. MRI brain revealed a punctate left frontal white matter lesion felt to represent a nonspecific demyelinating pattern. EEG showed no seizure activity. Symptoms of dizziness and vertigo were attributed to a multifactorial etiology, including hypokalemia, alcohol use, polypharmacy, and possible benign positional vertigo. Meclizine was given with partial relief. Blood pressure remained elevated with episodes of hypertensive urgency, managed with IV hydralazine and adjustment of oral regimen to losartan and amlodipine, with atenolol held due to concern for contribution to syncope. Cardiology was consulted after serial EKGs showed prolonged QTc. QT-prolonging medications were reviewed and minimized. Echocardiogram showed preserved LVEF (55?60%) without significant structural disease. Alcohol withdrawal was monitored with [facility] protocol. Thiamine and folate were administered. No significant withdrawal symptoms developed. Electrolytes including magnesium and phosphate were monitored and replaced as needed. Ferritin and iron studies were within normal range, making significant hemochromatosis-related organ damage unlikely. Throughout admission, patient continued to experience dizziness and back pain, for which analgesia and supportive measures were provided. During this admission, patient did not experience a syncope episode. Patient has been on telemetry and no arrhythmia has been observed. Neurology recommended outpatient consideration of nortriptyline, clonazepam, or SSRI therapy for symptom management. Patient agreed to care home facility placement at discharge. Patient is medically and physically stable for discharge. Diagnosis #Recurrent syncope/vertigo #Hypokalemia #Prolonged QTc interval #Hypertensive urgency #Alcohol use disorder #Type 2 Diabetes Mellitus #Subclinical hypothyroidism #Fibromyalgia #Chronic back pain #Reported Crohn?s disease ? no evidence of acute flare. #Reported polycythemia ? stable counts, no hyperviscosity symptoms. #Reported hemochromatosis ? ferritin and iron panel not consistent with significant overload, no acute organ involvement. #Tobacco use disorder #Marijuana use #Psychiatric disorder (unspecified) Discharge Plan: Follow up with Primary Care Physician within 1 week of discharge. Consider starting these medications with Nortiptyline for pain or Abilify talk to your Primary Care Physician and neurology in regards to starting these medications. Your cyclobenzaprine dose has been changed to 5mg instead of 10mg. Your Primary Care Physician should consider a medication reconciliation as patient is having syncopal episodes possibly due to polypharmacy. Patient during hospitalizations has not had any evidence of syncope at this time. Follow up with these specialists within 2 weeks of discharge Neurology, Hematology and Oncology, Rheumatology, Psychiatry Should your symptoms recur or worsen patient is instructed to return to the Emergency Department. Case discussed with my senior resident Dr. Lazaro Melissa and my attending Dr. Feldman. Adeola Pat, DO PGY 1 Status at Discharge Overall status at discharge: patient is back to baseline Time Spent with Patient Time attestation: Total time spent providing and/or coordinating discharge services: Time spent: Greater than 30 minutes Exam Vital Signs Temp Pulse Resp BP Pulse Ox O2 Del Method 98.2 F 91 15 142/91 H 98 Aerosol Mask 04/29/25 12:00 04/29/25 12:00 04/29/25 12:00 04/29/25 12:00 04/29/25 12:00 04/29/25 12:00 Narrative Exam Physical Exam General: Awake and in no acute distress. Conversational and non-toxic appearing. HEENT: Normocephalic, atraumatic, mucous membranes moist. Heart: Regular rate and rhythm, no murmurs. Lungs: Clear to auscultation with no wheezing or crackles. Abdomen: Soft, nondistended, nontender. No guarding or rebound tenderness. Neurologic: Alert and oriented x3, no gross neurological deficit, and patient able to move all 4 extremities. Extremities: No edema. Skin: No rash or ecchymoses Discharge Plan Plan Patient Disposition: Xfer Skilled Ns Fac (SNF) Patient condition on transfer: Stable Care Plan Goals: Follow up with Primary Care Physician within 1 week of discharge Consider starting these medications with Nortiptyline for pain or Abilify talk to your Primary Care Physician and neurology in regards to starting these medications Your cyclobenzaprine dose has been changed to 5mg instead of 10mg. Your Primary Care Physician should consider a medication reconciliation as patient is having syncopal episodes possibly due to polypharmacy. Patient during hospitalizations has not had any evidence of syncope at this time. Follow up with these specialists within 2 weeks of discharge Neurology, Hematology and Oncology, Rheumatology, Psychiatry Should your symptoms recur or worsen patient is instructed to return to the Emergency Department. Prescriptions/Referrals Prescriptions/Med Rec: New meclizine 25 mg tablet 25 mg PO QDAY PRN (Reason: dizziness) Qty: 30 0RF Continued pantoprazole [Protonix] 40 mg tablet,delayed release (DR/EC) 40 mg PO QDAY Qty: 20 0RF atenolol 50 mg tablet 50 mg PO DAILY Patient Comments: TAKE 1 TABLET BY MOUTH EVERY DAY oxycodone-acetaminophen 5-325 mg tablet 1 tab PO Q6H PRN (Reason: pain) Patient Comments: TAKE 1 TABLET BY MOUTH EVERY 6 HOURS NEEDED Rx Instructions: pain atorvastatin 10 mg tablet 10 mg PO HS Patient Comments: take 1 tablet by mouth once daily quetiapine 100 mg tablet 100 mg PO DAILY Patient Comments: TAKE 1 TABLET BY MOUTH NIGHTLY AT BEDTIME Jardiance 25 mg tablet 25 mg PO DAILY Patient Comments: TAKE 1 TABLET BY MOUTH EVERY DAY losartan 100 mg tablet 100 mg PO DAILY Patient Comments: TAKE 1 TABLET BY MOUTH EVERY DAY Changed cyclobenzaprine 10 mg tablet 5 mg PO DAILY Qty: 30 0RF Patient Comments: take 1 tablet by mouth twice a day if needed Discontinued losartan 50 mg tablet 50 mg PO QDAY Patient Comments: take 1 tablet by mouth once daily ibuprofen 800 mg Tablet 800 mg PO Q6H PRN (Reason: Pain) acetaminophen 500 mg Tablet 500 mg PO Q6H PRN (Reason: Pain) atenolol 100 mg tablet 50 mg PO BID dicyclomine 20 mg tablet 20 mg PO TID PRN (Reason: abdominal pain) Qty: 30 0RF metoclopramide HCl [Reglan] 10 mg tablet 10 mg PO .TID prn PRN (Reason: nausea and vomiting) Qty: 20 0RF loperamide 2 mg capsule 2 mg PO QID Patient Comments: take 1 capsule by mouth four times a day if needed for diarrhea sertraline 50 mg tablet 50 mg PO QDAY Patient Comments: take 1/2 tablet by mouth once daily for 2 weeks then 1 tablet once daily quetiapine 50 mg tablet 50 mg PO HS Patient Comments: take 1 tablet by mouth once daily at bedtime hydrocodone-acetaminophen 5-325 mg tablet 1 tab PO TID MDD 3 PRN (Reason: pain) Qty: 10 0RF Referrals: Myron Emmanuel MD [Primary Care Provider] - Patient/Caregiver Discharge Instructions Education Materials: Social Drinking vs Problem Drinking, Discharge Instructions Taking ..., Causes of Syncope, Alcohol Withdrawal: What to Expect Print Language: Slovak Stand Alone Forms: Clare Award Info., Patient Portal Info Letter Discharge Order Discharge Orders: Discharge (Routine); Ordered 04/29/25 Ordered By: Felipe Melissa Quality Discharge Quality Measures none
[2025-05-02 06:34] LABS: Vitamin B1 (Thiamine)* 47 nmol/L (8-30)
== END 2025-04-29 18:36 | disposition skilled nursing facility (03) | DRG 204 ==
LOC: SERX 22:51 → SERHOLD 23:45 → S2NX 04-23 16:37 → S3NX 04-27 01:15
PROVIDERS: Emergency Medicine; Admitting Provider Student in an Organized Health Care Education/Training Program; Emergency Provider Emergency Medicine; PCP Internal Medicine; Visit Provider Internal Medicine
DX: R55 Syncope and collapse (principal); K50.90 Crohn's disease, unspecified, without complications; M79.7 Fibromyalgia; F17.200 Nicotine dependence, unspecified, uncomplicated; I10 Essential (primary) hypertension; Y90.3 Blood alcohol level of 60-79 mg/100 ml; E87.6 Hypokalemia; D75.1 Secondary polycythemia; E11.65 Type 2 diabetes mellitus with hyperglycemia; E83.119 Hemochromatosis, unspecified; E11.9 Type 2 diabetes mellitus without complications; F12.90 Cannabis use, unspecified, uncomplicated; F10.10 Alcohol abuse, uncomplicated; F10.139 Alcohol abuse with withdrawal, unspecified; F32.A Depression, unspecified; F41.9 Anxiety disorder, unspecified; E83.39 Other disorders of phosphorus metabolism; G89.29 Other chronic pain; R94.31 Abnormal electrocardiogram [ECG] [EKG]; E03.8 Other specified hypothyroidism; H81.10 Benign paroxysmal vertigo, unspecified ear; I16.1 Hypertensive emergency; D45 Polycythemia vera; M48.061 Spinal stenosis, lumbar region without neurogenic claudication; R56.9 Unspecified convulsions; G47.00 Insomnia, unspecified; Z79.899 Other long term (current) drug therapy; Z90.710 Acquired absence of both cervix and uterus
CPT/HCPCS: 36415; 70450; 70553; 71045; 72131; 80048; 80053; 80061; 80307; 80320; 81001; 81025; 82010; 82550; 82607; 82728; 83036; 83540; 83550; 83605; 83690; 83735; 83880; 84100; 84132; 84425; 84439; 84443; 84484; 85025; 85379; 85610; 85730; 87400; 87811; 93005; 93225; 93306; 95816; 96361; 96365; 96366; 96375; 97162; 99284; A9577; J0360; J1650; J1815; J1885; J2270; J2405; J3411; J3475; J3480; J3490; J7030; J7050; J7999; A9270; G0480; J1920

== ENCOUNTER → 2025-08-23 | Outpatient (CLI) | payer MEDICAID, SELFPAY ==
--- NOTE | 2025-08-23 10:00 | XR_ITS ---
Examination: Screening digital mammography, bilateral Computer aided detection 3-D breast Tomosynthesis, bilateral Date and time of exam: August 23, 2025, 0954 hours, compared to mammograms dating to September 14, 2019 Indication: Screening Technique: Nonmagnified MLO, CC views of the breasts to been obtained, reconstructed from 3-D Tomosynthesis images. R2 computer aided detection program utilized for evaluation of suspicious masses and/or abnormal calcifications. 3-D Tomosynthesis images obtained. Findings: The breasts are heterogeneously dense, which may obscure small masses Breast biopsy marker adjacent to nodule upper outer right breast again depicted This nodule appears stable in configuration [facility] compared to 2020 Nodular asymmetry upper left breast also appears stable compared to the prior study, measuring approximately 14 mm Impression: BI-RADS Category 0: Incomplete: Need additional imaging evaluation Recommend repeat bilateral breast sonography to assess bilateral breast nodules described above
== END | disposition home or self-care (01) ==
LOC: CDIM 09:45
PROVIDERS: Referring Provider Hospitalist; Visit Provider Hospitalist
DX: Z12.31 Encounter for screening mammogram for malignant neoplasm of breast (principal); R92.8 Other abnormal and inconclusive findings on diagnostic imaging of breast
CPT/HCPCS: 77063; 77067